=== PATIENT | male | born 1975 | race Caucasian/White ===

== ENCOUNTER 2020-11-18 12:14 | Emergency (ER) | payer OTHER, SELFPAY ==
--- NOTE | ~2020-11-18 | XR_ITS ---
EXAMINATION: XR CHEST CLINICAL INFORMATION: Back pain COMPARISON: None TECHNIQUE: 2 views of the chest were obtained. FINDINGS: The cardiac and mediastinal contours are normal. There is question of 2 cavitary right lung nodules measuring 1 cm. There is subsegmental atelectasis at the lung bases. There is blunting of the left lateral costophrenic angle probably related to subsegmental levels) and posterior small left effusion. There is no right pleural effusion. Bony structures are unremarkable. XR/XR chest 2V IMPRESSION: Question 2 cavitary right pulmonary nodules. Subsegmental atelectasis at the lung bases.
[2020-11-18 13:26] VITALS: BP 114/63; PULSE 100; RESP 19; TEMP 36.6; O2SAT 99; BMI 18.8
--- NOTE | 2020-11-18 17:39 | ED_ITS ---
HPI - General Adult General Chief complaint: General Medical Stated complaint: SHOULDER/KNEE PAIN FROM SLEEPING ON STREETS Time Seen by Provider: 11/18/20 17:39 Source: patient Mode of arrival: ambulatory Limitations: no limitations History of Present Illness HPI narrative: 45-year-old male who came in for evaluation of generalized body ache. Patient lost his mother 1 month ago and patient has been in the street homeless for the past month sleeping on the floor, having uncomfortable life, patient came in complaining of generalized body ache that he thinks secondary to been sleeping on the floor for 1 month. Patient otherwise declined any trauma or fall. patient mostly complaining of right shoulder pain in bilateral knees Patient is able to ambulate in the emergency department Related Data Previous Rx's Medication Instructions Recorded ibuprofen 600 mg PO Q8H PRN #20 tab 11/18/20 Allergies Allergy/AdvReac Type Severity Reaction Status Date / Time No Known Allergies Allergy Verified 11/18/20 13:31 Review of Systems Review of Systems: all other systems are reviewed and are negative Constitutional: Reports as per HPI and Reports no additional constitutional complaints Eyes: Reports as per HPI and Reports no additional eye complaints Reports system reviewed and no additional complaints, except as documented Cardiovascular: Reports as per HPI and Reports no additional cardiovascular complaints Respiratory: Reports as per HPI and Reports no additional respiratory complaints Gastrointestinal: Reports as per HPI and Reports no additional gastrointestinal complaints Genitourinary: Reports no additional female genitourinary complaints Musculoskeletal: Reports no additional musculoskeletal complaints Skin/Breast: Reports system reviewed and no additional complaints, except as docu Psychiatric: Reports no additional psychiatric complaints Endocrine: Reports no additional endocrine complaints Hematologic/Lymphatic: Reports no additional hematologic/lymphatic complaints Allergic/Immunologic: Reports no additional allergic/immunologic complaints Reports system reviewed and no additional complaints, except as documented and Reports Abnormal speech present Physical Exam Vital Signs: Vital Signs: Last Vital Signs Temp 98 F 11/18/20 13:26 Pulse 100 11/18/20 13:26 Resp 19 11/18/20 13:26 BP 114/63 11/18/20 13:26 Pulse Ox 99 11/18/20 13:26 Body Mass Index 18.8 vital signs have been reviewed as appeared to be correct. Blood pressure normal. Heart rate normal. Respiration rate normal. Temperature normal. Oxygen saturation normal. Appearance: Alert. Oriented X3. No acute distress. Head: Normal external exam. Normocephalic. Atraumatic. No Romano signs noted. No raccoon eyes noted Eyes: PERRLA. EOMI. Conjunctiva and sclera normal. Eyelids normal. ENT: TM's Normal. Pharynx normal. Uvula midline. Moist mucous membranes. No trismus noted. No drooling noted. No muffled voice noted. Neck: Normal inspection. Neck supple. FROM. No adenopathy. Thyroid Normal. No meningeal signs. No neck mass noted. CVS: Normal heart rate and rhythm. Heart sound normal. No murmurs noted. Pulses normal throughout. Respiratory: No respiratory distress. Painless inspiration. Breath sounds normal. No wheezes/rales/rhonchi noted. Chest nontender. No accessory muscle usage noted or decreased air movement noted. Abdomen: Soft and nontender. Bowel sounds normal in all 4 quadrants. No distention noted. No organomegaly noted. No visible injury noted. Back: No CVA tenderness. Full range of motion noted. Skin: Skin warm and dry. Normal skin color. Normal skin turgor. No rashes/lesions/lacerations noted. Extremities: right shoulder tenderness, full range of motion, no deformity, patent neurovascular exam. Bilateral knee tenderness, no deformity Neuro: Oriented X 3. No motor deficit. No sensory deficit. Reflexes normal. Course Course Course Narrative: 45-year-old male has been homeless for the past month in due to uncomfortable lifestyle patient came in with generalized body ache and joints pain. Patient's symptoms thought to be secondary to the unfortunate life situation, will offer NSAIDs, patient was instructed to go [facility]. Discharge Plan Discharge Clinical Impression: Arthralgia Qualifiers: Joint pain location: knee Laterality: bilateral Qualified Code(s): M25.561 - Pain in right knee Patient Disposition: Home, Self-Care Instructions: Arthralgia (ED) Prescriptions: New ibuprofen 600 mg tablet 600 mg PO Q8H PRN (Reason: pain) Qty: 20 RF: 0
[2020-11-18] MEDS: Ibuprofen 600 MG TABLET PO (18:08)
--- NOTE | 2020-11-18 18:08 | MHC.RECOVSUP ---
? Reason for consult Recovery Support o Current location: 22 o Identified substance use concern: Heroin <del>-</del> <del>Overdose</del> <del>-</del> <del>Withdrawal</del> - Seeking ATS (detox) - Support ? Intervention: o ATS bed search started 6pm/completed 6:15pm o Community resources provided o Harm reduction discussion ? Plan: o <del>Referral</del> <del>to</del> <del>[facility]</del> <del>o</del> <del>Bed</del> <del>search</del> <del>in</del> <del>progress</del> <del>to</del> <del>o</del> <del>Follow</del> <del>up</del> <del>tomorrow</del> <del>o</del> <del>Patient</del> <del>awaiting</del> <del>crisis</del> <del>evaluation</del> o Patient to follow up with [facility] after discharge ? Additional information: Patient was advised to go to [facility] In the morning to get the support he needs to get to a detox.. At the moment there is no detox bed
== END 2020-11-18 18:18 | disposition home or self-care (01) ==
LOC: HO.ED 18:12
PROVIDERS: Emergency Provider Emergency Medicine; PCP Internal Medicine
DX: M79.10 Myalgia, unspecified site (principal); M25.561 Pain in right knee; Z59.0 Homelessness; Z72.89 Other problems related to lifestyle; Z63.4 Disappearance and death of family member
CPT/HCPCS: 71046; 99283

== ENCOUNTER 2020-11-21 18:25 | Inpatient (IN) | payer OTHER, SELFPAY ==
--- NOTE | ~2020-11-21 | US_ITS ---
EXAMINATION: US ABDOMEN LIMITED CLINICAL INFORMATION: Elevated bilirubin. COMPARISON: None TECHNIQUE: Real-time imaging of the right upper quadrant abdominal viscera. FINDINGS: PANCREAS: Normal. LIVER: There is a small 6 mm hyperechoic lesion high in the dome of the right lobe of the liver. This may represent a hemangioma. The liver contour is normal. Parenchymal echogenicity is normal. No other focal hepatic lesion. There is no intrahepatic biliary duct dilatation seen. GALLBLADDER: Normal. The gallbladder is physiologically distended without evidence of stones, sludge, polyps, or pericholecystic fluid. COMMON BILE DUCT: Normal in caliber measuring 0.3 cm in diameter. RIGHT KIDNEY: There is a 1.2 x 1.6 x 1.8 cm cyst in the midpole. No hydronephrosis or renal calculi. The kidney measures 12.0 cm in maximum dimension. FREE FLUID: None. There is a small right pleural effusion. US/US abdomen limited IMPRESSION: 5 mm hyperechoic lesion high in the dome of the right lobe of the liver. This may represent a hemangioma. Small right pleural effusion. Small right renal cyst.
--- NOTE | ~2020-11-21 | MR_ITS ---
EXAMINATION: MR BRAIN WITHOUT CONTRAST CLINICAL INFORMATION: Confusion. COMPARISON: None available. TECHNIQUE: Multiplanar, multisequence imaging of the brain was performed without intravenous contrast. FINDINGS: There is no acute infarction, mass, hemorrhage, or extra-axial collection. The ventricles, sulci, and basilar cisterns are normal in size and configuration. The brain parenchymal signal appears normal. The flow voids of the major intracranial arteries appear intact. The bones and extracranial soft tissues are unremarkable. MR/MR head/brain wo con IMPRESSION: No acute infarct, mass lesion, intracranial hemorrhage, or evidence of hydrocephalus.
--- NOTE | ~2020-11-21 | MR_ITS ---
EXAMINATION: MR LUMBAR SPINE WITHOUT AND WITH CONTRAST CLINICAL INFORMATION: Evaluate for abscess. COMPARISON: No relevant prior imaging. TECHNIQUE: Multiplanar MR imaging of the lumbar spine was performed without and with contrast. A total of 6 mL Gadavist was utilized for this examination. FINDINGS: There is transitional spinal anatomy at the lumbosacral junction with partial lumbarization of the S1 vertebral segment. A single hypoplastic right-sided rib at L1 is also noted. Alignment is normal. Vertebral heights are preserved. There is diffuse reduction of bone marrow signal intensity on T1 sequences. There is disc desiccation at L4-L5 and L5-S1. The tip of the conus medullaris is located at L1-L2. No mass effect on the conus. Visualized distal cord signal intensity is normal. At L1-L2, L2-L3, and L3-L4 the annular contours are normal. No canal or neuroforaminal compromise at these 3 levels. At L4-L5 there is a central annular fissure associated with a bulging disc. No canal stenosis. Subarticular zone narrowing causes abutment of both traversing L5 nerve roots, slightly greater on the left. No foraminal nerve root compression. At L5-S1 there is a small left central annular fissure associated with a bulging disc. Bilateral facet degenerative change. No canal stenosis. Subarticular zone narrowing causes abutment of both traversing S1 nerve roots. No foraminal nerve root compression. Postcontrast images reveal no abnormal enhancement. Limited visualization of the retroperitoneal anatomy reveals no abnormal finding. Psoas and paraspinal muscle groups are symmetric. 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 There is diffuse reduction of bone marrow signal intensity on T1 sequences. This nonspecific finding can be seen in setting of red marrow reconversion or anemia. Other infiltrative bone marrow processes including leukemia are not excluded. There are bulging discs at L4-L5 and L5-S1. No canal or neuroforaminal stenosis within the lumbar spine. Subarticular zone narrowing at this level causes abutment of the left traversing L5 nerve root and both traversing S1 nerve roots. No evidence of abscess.
--- NOTE | ~2020-11-21 | CT_ITS ---
EXAMINATION: CT ANGIOGRAM OF THE CHEST WITH AND WITHOUT CONTRAST (CT PULMONARY ANGIOGRAM FOR PE) CLINICAL INFORMATION: Septic emboli. COMPARISON: Radiograph 11/21/2020 TECHNIQUE: Prior to contrast administration, noncontrast localization images were obtained. Subsequently, multidetector volumetric imaging was performed from the thoracic inlet to below the diaphragms following the administration of 65 mL Omnipaque 350 intravenous contrast. No contrast reaction reported Sagittal, coronal, and MIP oblique sagittal reformatted images were obtained on the CT workstation, uploaded to PACS, and reviewed. This CT examination was performed using dose optimization techniques as appropriate, variously including the following: *Automated exposure control *Adjustment of mA and/or kV according to patient size (this includes techniques or standardized protocols for targeted exams where dose is matched to indication/reason for exam; i.e. extremities or head) *Use of iterative reconstruction technique Total exam dose-length product 374 mGy-cm FINDINGS: QUALITY OF STUDY/CONTRAST BOLUS: Satisfactory. PULMONARY ARTERIES: No central or segmental pulmonary emboli. THORACIC AORTA: No aneurysm or dissection. LUNG: The central airways are patent. Small bilateral pleural effusions. Bilateral lower lobe consolidation. Multiple cavitating nodules are seen throughout both lungs. For instance, there is a cavitating nodule in the right middle lobe measuring 2.1 cm on series 11 image 280. No pneumothorax. MEDIASTINUM: Normal heart size. No pericardial effusion. There are prominent mediastinal lymph nodes and right hilar lymph nodes present.. No evidence of septal bowing or right heart strain. CHEST WALL/AXILLA: No axillary or internal mammary lymphadenopathy. OSSEOUS STRUCTURES: No acute or suspicious osseous abnormality. UPPER ABDOMEN: Unremarkable. No reflux of contrast into the hepatic veins to suggest elevated right heart pressures. CT/CT angio chest PE protocol IMPRESSION: 1. No pulmonary embolism. 2. Cavitating nodules are seen throughout both lungs, consistent with septic emboli. Small pleural effusions with bibasilar consolidation. VTE: negative
--- NOTE | ~2020-11-21 | XR_ITS ---
EXAMINATION: XR CHEST CLINICAL INFORMATION: Tachypnea COMPARISON: Previous chest x-rays most recent 11/21/2020 and chest CTA 11/22/2020 TECHNIQUE: Frontal view of the chest was obtained. FINDINGS: The cardiac and mediastinal contours are stable. There are multiple nodular opacities seen throughout the lungs, some of which appear cavitary. This appears increased from previous exams. There is denser larger area of consolidation in the right lateral midlung and left lower lobe suggestive of pneumonia that appears increased from previous exams. There is an increasing left pleural effusion. There is no right pleural effusion. There is no pneumothorax. XR/XR chest 1V IMPRESSION: Increasing cavitary nodules and larger denser areas of airspace disease in the right lateral midlung and left lower lobe and increasing left pleural effusion compared to previous exams.
--- NOTE | ~2020-11-21 | XR_ITS ---
EXAMINATION: XR CHEST CLINICAL INFORMATION: Question of pneumonia. COMPARISON: 11/18/2020 chest radiographs. TECHNIQUE: Frontal view of the chest was obtained. FINDINGS: There has been interval increase in nodular opacities distributed diffusely bilaterally. Mild left basilar opacification is seen with blunting of the left costophrenic angle. The heart and mediastinal structures are unremarkable. XR/XR chest 1V IMPRESSION: Interval increase in bilateral nodular opacities with small left pleural effusion. These findings are nonspecific, but given the short interval, septic emboli cannot be excluded. A CT scan of the chest should be considered.
--- NOTE | 2020-11-21 18:31 | ED_ITS ---
HPI - General Adult General Chief complaint: General Medical Stated complaint: bilateral leg swelling Time Seen by Provider: 11/21/20 18:31 Source: patient and EMS Mode of arrival: EMS Limitations: no limitations History of Present Illness HPI narrative: Patient homeless or IVDA user brought by ambulance for not fee ling good 4 weeks generalized body aches feel short of breath coughing is 21 dose of it on a day IVDA no history of HIV or MRSA infection low-grade fever. On arrival patient vitals were blood pressure 94/56 pulse rate 116 refuted 20 saturating 98% at room air rectal temperature 99.5 degrees patient does feel weak no significant shortness of breath denies any back pain known paresthesia in the legs Related Data Home Medications Medication Instructions Recorded Confirmed No Known Home Meds 11/21/20 11/21/20 Allergies Allergy/AdvReac Type Severity Reaction Status Date / Time No Known Allergies Allergy Verified 11/18/20 13:31 Review of Systems 2 Review of Systems: Constitutional : + Weight loss, No Fever, No Chills ENT/Mouth : No sore throat, No Rhinorrhea Eyes: No Eye Pain, No Swelling Cardiovascular : No Chest Pain, no palpitations Respiratory : No Cough, No Sputum, no shortness of breath Gastrointestinal : no Nausea, No Vomiting, No Diarrhea, No abdominal Pain, no black stools Genitourinary : No Dysuria, No Urinary Frequency Musculoskeletal : No joint pain, + Myalgias, No Joint Swelling Skin : No Skin Lesions, No rash Neuro :++Weakness, No Numbness, No Dizziness, No Headache Psych : No Anxiety/Panic, No Depression Heme/Lymph: No Bruising, No Lymphadenopathy Endocrine : No Polyuria, No Polydipsia All other systems reviewed and are negative [facility] Past Medical History Medical History Substance abuse Social History Social History Household Members: None Housing: Homeless Do you presently have visiting nurse or other home services: No Patient Tobacco Use Status: Former Tobacco user Tobacco use type: Cigarette Smoked in Last 30 Days: No e-Cigarette/Vaping Use: Former Use Patient Interested in Nicotine Replacement: Yes Patient Given Instructions on How to Stop Smoking: Yes Date Education Initiated: 11/22/20 Use of substances other than those prescribed or required for medical reasons: Yes Substance Use Type: Crack/Cocaine and Heroin Substance Use Frequency: Daily Last Used Substance: Days (ago) Last Used Substance Other:: 11/21/20 Currently Displaying Signs/Symptoms of Drug Intoxication Withdrawal: No Have you been hit, kicked, punched, or otherwise hurt by someone within the past year? If so, by whom?: No Do you feel safe in your current relationship?: No Current Relationship Is there a partner from a previous relationship who is making you feel unsafe now?: No Are you made to feel afraid or neglected: No Advance Directives: No Advance Directives on File: No Do you have thoughts of harming others: None Do you have a plan to hurt others: No Plan Recently lost weight without trying: Yes How much weight loss: Unsure Eating poorly because of decreased appetite: No Nutrition screen score: 4 Nutrition Risks: No Nutritional Risk Poor oral hygiene: No (no top teeth) Physical Exam Vital Signs: Vital Signs: Last Vital Signs Temp 98.6 F 11/22/20 00:51 Pulse 115 H 11/22/20 01:09 Resp 20 11/22/20 00:51 BP 105/60 11/22/20 01:09 Pulse Ox 90 L 11/22/20 01:57 Body Mass Index 20.7 Appearance: Alert. Oriented X3. In mild distress thin emaciated patient looks sick uncapped Eyes: PERRLA, No Nystagmus ENT: Pharynx normal. Oral Mucosa moist Neck: Normal inspection. Neck supple. CVS: Normal heart rate and rhythm. Pulses normal. No murmur Respiratory: No respiratory distress. Equal air entry bilateral, no wheezing/rhonchi bilateral Diffuse crackles Abdomen: Soft and nontender. Bowel sounds are present, no mass palpable, no CVA tenderness Skin: Skin warm and dry. Normal skin color. Normal skin turgor. No skin abscesses no focal spinal tenderness Extremities: No lower extremity edema. No calf tenderness, IVDA track muhammad++ Neuro: Oriented X 3. No motor deficit. No sensory deficit.No cerebellar signs , cranial nerves II-XII intact Medical Decision Making MDM Narrative Medical decision making narrative: Patient IVDA user with leukocytosis tachyca rdia CT scan showing multiple septic sepsis bilateral meeting criteria for sepsis received IV fluid more than 30 cc/kilogram IV antibiotic vancomycin and Zosyn. Will admit patient bacteremia with septic emboli Lab Data Lab results reviewed: Yes I reviewed the patient's lab results. Result diagrams: 11/21/20 20:29 11/21/20 20:29 Labs: Lab Results 11/21/20 11/21/20 11/21/20 Range/Units 20:29 20:29 20:29 WBC 30.5 H* (4.8-10.8) X10*3/uL RBC 3.47 L (4.60-5.80) X10*6/uL Hgb 10.3 L (14.0-18.0) g/dl Hct 27.8 L (42-52) % MCV 80.1 (80-98) fL MCH 29.7 (27.0-33.0) pg MCHC 37.1 H (31.0-36.0) g/dl RDW 12.9 (11.0-16.0) % Plt Count 140 L (160-400) X10*3/uL MPV 11.1 (9.4-12.4) fL Immature Gran % (Auto) Cancelled Neut % (Auto) Cancelled Lymph % (Auto) Cancelled [place] % (Auto) Cancelled Eos % (Auto) Cancelled Baso % (Auto) Cancelled Lymph # (Auto) Cancelled [place] # (Auto) Cancelled Eos # (Auto) Cancelled Baso # (Auto) Cancelled Abs Immat Gran (auto) Cancelled Absolute Neuts (auto) Cancelled Absolute Nucleated RBC 0.000 (0.0-0.012) X10*3/uL Nucleated RBC % (auto) 0.0 (0.0-0.2) /100WBC Neutrophils % (Manual) 65 (45-73) % Band Neutrophils % 27 H (3-5) % Lymphocytes % (Manual) 3 L (20-40) % Monocytes % (Manual) 2 (2-11) % Eosinophils % (Manual) 1 (0-4) % Metamyelocytes % 2 % Abs Neuts (Manual) 28.1 H (2.2-7.9) X10*3/uL Lymphocytes # (Manual) 0.9 (0.6-4.8) X10*3/uL Monocytes # (Manual) 0.6 (0.0-1.2) X10*3/uL Eosinophils # (Manual) 0.3 (0.0-0.8) X10*3/UL Metamyelocytes # 0.6 X10*3/uL Platelet Estimate NORMAL (NORMAL) Plt Morphology Comment NORMAL RBC Morphology NORMAL Sodium 128 L (135-145) mmol/L Potassium 3.5 (3.3-5.1) mmol/L Chloride 92 L (96-108) mmol/L Carbon Dioxide 25 (22-29) mmol/L Anion Gap 15 (12-20) BUN 40 H (9-16) mg/dL Creatinine 0.98 (0.5-1.4) mg/dL Estim Creat Clear Calc 80.7 Estimated GFR > 60 Random Glucose 131 H (60-115) mg/dL Lactic Acid (0.5-2.0) mmol/L Calcium 7.6 L (8.4-10.2) mg/dL Total Bilirubin 1.9 H (0.0-1.0) mg/dL Direct Bilirubin 1.5 H (0.0-0.5) mg/dL AST 27 (5-37) U/L ALT 23 (0-40) U/L Alkaline Phosphatase 116 (39-117) U/L C-Reactive Protein 23.14 H (< or = 0.50) mg/dL Total Protein 5.3 L (6.5-8.0) g/dL Albumin 2.2 L (3.5-5.0) g/dL Urine Color Urine Appearance Urine pH (5.0-8.0) Ur Specific [place] (1.005-1.025) Urine Protein (NEG-TRACE) MG/DL Urine Glucose (UA) (NEG) MG/DL Urine Ketones (NEG) MG/DL Urine Blood (NEG) Urine Nitrite (NEG) Ur Leukocyte Esterase (NEG) Urine RBC (0) /HPF Urine WBC (0-4) /HPF Ur Squamous Epith Cells /LPF Urine Bacteria /LPF Hyaline Casts /LPF Urine Mucus /LPF COVID-19 (LISA) (Negative) COVID-19 Clin Com 11/21/20 11/21/20 11/21/20 Range/Units 21:03 21:14 23:53 WBC (4.8-10.8) X10*3/uL RBC (4.60-5.80) X10*6/uL Hgb (14.0-18.0) g/dl Hct (42-52) % MCV (80-98) fL MCH (27.0-33.0) pg MCHC (31.0-36.0) g/dl RDW (11.0-16.0) % Plt Count (160-400) X10*3/uL MPV (9.4-12.4) fL Immature Gran % (Auto) Neut % (Auto) Lymph % (Auto) [place] % (Auto) Eos % (Auto) Baso % (Auto) Lymph # (Auto) [place] # (Auto) Eos # (Auto) Baso # (Auto) Abs Immat Gran (auto) Absolute Neuts (auto) Absolute Nucleated RBC (0.0-0.012) X10*3/uL Nucleated RBC % (auto) (0.0-0.2) /100WBC Neutrophils % (Manual) (45-73) % Band Neutrophils % (3-5) % Lymphocytes % (Manual) (20-40) % Monocytes % (Manual) (2-11) % Eosinophils % (Manual) (0-4) % Metamyelocytes % % Abs Neuts (Manual) (2.2-7.9) X10*3/uL Lymphocytes # (Manual) (0.6-4.8) X10*3/uL Monocytes # (Manual) (0.0-1.2) X10*3/uL Eosinophils # (Manual) (0.0-0.8) X10*3/UL Metamyelocytes # X10*3/uL Platelet Estimate (NORMAL) Plt Morphology Comment RBC Morphology Sodium (135-145) mmol/L Potassium (3.3-5.1) mmol/L Chloride (96-108) mmol/L Carbon Dioxide (22-29) mmol/L Anion Gap (12-20) BUN (9-16) mg/dL Creatinine (0.5-1.4) mg/dL Estim Creat Clear Calc Estimated GFR Random Glucose (60-115) mg/dL Lactic Acid 1.5 (0.5-2.0) mmol/L Calcium (8.4-10.2) mg/dL Total Bilirubin (0.0-1.0) mg/dL Direct Bilirubin (0.0-0.5) mg/dL AST (5-37) U/L ALT (0-40) U/L Alkaline Phosphatase (39-117) U/L C-Reactive Protein (< or = 0.50) mg/dL Total Protein (6.5-8.0) g/dL Albumin (3.5-5.0) g/dL Urine Color DARK YELLOW Urine Appearance CLEAR Urine pH 6.0 (5.0-8.0) Ur Specific [place] 1.010 (1.005-1.025) Urine Protein TRACE (NEG-TRACE) MG/DL Urine Glucose (UA) NEG (NEG) MG/DL Urine Ketones NEG (NEG) MG/DL Urine Blood 1+ H (NEG) Urine Nitrite NEG (NEG) Ur Leukocyte Esterase 1+ H (NEG) Urine RBC 1-4 (0) /HPF Urine WBC 5-9 H (0-4) /HPF Ur Squamous Epith Cells 1+ /LPF Urine Bacteria TRACE /LPF Hyaline Casts 0-2 /LPF Urine Mucus 1+ /LPF COVID-19 (LISA) Negative (Negative) COVID-19 Clin Com See Note Imaging Data CT scan - chest: Attestation: I personally reviewed and interpreted this imaging study as follows: Radiologist's impression: Signed Patient: Andrez Chiang#: [id number]: 1975Acct:[id number]/Sex: 45 / MADM Date: 11/22/20Loc: [id number] Dr: Angeli Crawford MD Ordering Physician: ANGELI CRAWFORD MD Date of Service: 11/22/20 Procedure(s): CT angio chest PE protocol Accession Number(s): [id number] cc: ANGELI CRAWFORD MD~ EXAMINATION: CT ANGIOGRAM OF THE CHEST WITH AND WITHOUT CONTRAST (CT PULMONARY ANGIOGRAM FOR PE) CLINICAL INFORMATION: Septic emboli. COMPARISON: Radiograph 11/21/2020 TECHNIQUE: Prior to contrast administration, noncontrast localization images were obtained. Subsequently, multidetector volumetric imaging was performed from the thoracic inlet to below the diaphragms following the administration of 65 mL Omnipaque 350 intravenous contrast. No contrast reaction reported Sagittal, coronal, and MIP oblique sagittal reformatted images were obtained on the CT workstation, uploaded to PACS, and reviewed. This CT examination was performed using dose optimization techniques as appropriate, variously including the following: *Automated exposure control *Adjustment of mA and/or kV according to patient size (this includes techniques or standardized protocols for targeted exams where dose is matched to indication/reason for exam; i.e. extremities or head) *Use of iterative reconstruction technique Total exam dose-length product 374 mGy-cm FINDINGS: QUALITY OF STUDY/CONTRAST BOLUS: Satisfactory. PULMONARY ARTERIES: No central or segmental pulmonary emboli. THORACIC AORTA: No aneurysm or dissection. LUNG: The central airways are patent. Small bilateral pleural effusions. Bilateral lower lobe consolidation. Multiple cavitating nodules are seen throughout both lungs. For instance, there is a cavitating nodule in the right middle lobe measuring 2.1 cm on series 11 image 280. No pneumothorax. MEDIASTINUM: Normal heart size. No pericardial effusion. There are prominent mediastinal lymph nodes and right hilar lymph nodes present.. No evidence of septal bowing or right heart strain. CHEST WALL/AXILLA: No axillary or internal mammary lymphadenopathy. OSSEOUS STRUCTURES: No acute or suspicious osseous abnormality. UPPER ABDOMEN: Unremarkable. No reflux of contrast into the hepatic veins to suggest elevated right heart pressures. CT/CT angio chest PE protocol IMPRESSION: 1. No pulmonary embolism. 2. Cavitating nodules are seen throughout both lungs, consistent with septic emboli. Small pleural effusions with bibasilar consolidation. VTE: negative Dictated By:Nabil Barnett MDSigned By:<Electronically signed by Nabil Barnett MD in OV>11/22/20 0056 Discharge Plan Discharge Clinical Impression: Sepsis Patient Disposition: Admitted As Inpatient Interventions: Admission Worksheet (ED) Last Done: 11/22/20 00:27 Discharge Date/Time: 11/22/20 00:27
[2020-11-21 18:34] VITALS: BP 110/70; BP 94/56; PULSE 116; PULSE 75; RESP 20; TEMP 36.9; O2SAT 98; BMI 20.7
[2020-11-21 20:35] LABS: Hematocrit 27.8 % (42-52); Hemoglobin 10.3 g/dl (14.0-18.0); Mean Corpuscular HGB Conc 37.1 g/dl (31.0-36.0); Mean Corpuscular Hemoglobin 29.7 pg (27.0-33.0); Mean Corpuscular Volume 80.1 fL (80-98); Mean Platelet Volume 11.1 fL (9.4-12.4); Platelet Count 140 X10*3/uL (160-400); Red Blood Count 3.47 X10*6/uL (4.60-5.80); Red Cell Distribution Width 12.9 % (11.0-16.0)
[2020-11-21 20:43] LABS: White Blood Count 30.5 X10*3/uL (4.8-10.8)
[2020-11-21 20:57] LABS: Band Neutrophils Percent 27 % (3-5); Eosinophils Absolute Manual 0.3 X10*3/UL (0.0-0.8); Eosinophils Percent Manual 1 % (0-4); Lymphocytes Absolute Manual 0.9 X10*3/uL (0.6-4.8); Lymphocytes Percent Manual 3 % (20-40); Metamyelocytes Absolute 0.6 X10*3/uL; Metamyelocytes Percent 2 %; Monocytes Absolute Manual 0.6 X10*3/uL (0.0-1.2); Monocytes Percent Manual 2 % (2-11); Neutrophils Absolute Manual 28.1 X10*3/uL (2.2-7.9); Neutrophils Percent Manual 65 % (45-73); RBC Morphology NORMAL
[2020-11-21 20:58] LABS: Platelet Estimate NORMAL (NORMAL); Platelet Morphology Comment NORMAL
[2020-11-21 21:05] LABS: C Reactive Protein 23.14 mg/dL (< or = 0.50)
[2020-11-21 21:08] LABS: Alanine Aminotransferase 23 U/L (0-40); Albumin Level 2.2 g/dL (3.5-5.0); Alkaline Phosphatase 116 U/L (39-117); Anion Gap 15 (12-20); Aspartate Amino Transferase 27 U/L (5-37); Bilirubin Direct 1.5 mg/dL (0.0-0.5); Bilirubin Total 1.9 mg/dL (0.0-1.0); Blood Urea Nitrogen 40 mg/dL (9-16); Calcium 7.6 mg/dL (8.4-10.2); Carbon Dioxide 25 mmol/L (22-29); Chloride 92 mmol/L (96-108); Creatinine Clr Calc Pharmacy 80.7; Estimated Glomerular Filt Rate > 60; Glucose Random 131 mg/dL (60-115); Potassium 3.5 mmol/L (3.3-5.1); Sodium 128 mmol/L (135-145); Total Protein 5.3 g/dL (6.5-8.0)
[2020-11-21 21:20] VITALS: BP 100/64; PULSE 121; RESP 20; TEMP 36.6; O2SAT 97
[2020-11-21] MEDS: 0.9 % Sodium Chloride 1,800 ML 900 ML IV (21:32)
[2020-11-21] MEDS: Piperacillin Sodium/Tazobactam 3.375 GM in 0.9 % Sodium Chloride 50 ML IV (21:33)
[2020-11-21 21:43] LABS: COVID-19 Test Negative (Negative)
[2020-11-21] MEDS: vancomycin HCL 1,000 MG in 0.9 % Sodium Chloride 250 ML 270 MG IV (21:44)
[2020-11-21 21:56] LABS: Lactic Acid 1.5 mmol/L (0.5-2.0)
[2020-11-21 22:00] VITALS: TEMP 37.5
--- NOTE | 2020-11-21 22:01 | PC.NURSE ---
Pt undressed completly ems linen removed. pt has iv with fluids and antibx infusing. pt felt very warm hr elevated and rectal temp taken. 99.5 rectal
--- NOTE | 2020-11-21 22:10 | PHA.MEDREC ---
Pharmacy Consult ? Medication Reconciliation Pharmacy has completed the medication reconciliation.
[2020-11-22] VITALS (12 sets, daily range): BP systolic 91–109; BP diastolic 54–64; PULSE 107–122; RESP 16–20; TEMP 36.1–37.3; O2SAT 90–96; BMI 20.9
[2020-11-22 00:01] LABS: Glucose Urine UA NEG (NEG); Leukocyte Esterase Urine 1+ (NEG); Nitrite Urine NEG (NEG); UACC Culture Trigger YES; Urine Blood 1+ (NEG); Urine Ketones NEG (NEG); Urine Protein TRACE MG/DL (NEG-TRACE)
[2020-11-22 00:03] LABS: Appearance Urine CLEAR; Color Urine DARK YELLOW
[2020-11-22 00:10] LABS: Bacteria Urine TRACE /LPF; Hyaline Casts Urine 0-2 /LPF; Mucus Urine 1+ /LPF; Squamous Epithelial Cell Urine 1+ /LPF
[2020-11-22] MEDS: iohexoL 350 MG/ML 100 ML INFUS..BTL 65 ML IV (00:11)
--- NOTE | 2020-11-22 00:21 | P.HPHOSP_ITS ---
History of Present Illness Date of Service: 11/22/20 Chief Complaint: Generalized body aches 45-year-old male with No past medical history except for IV drug abuse/heroin abuse; presented to the hospital with a chief complaint of generalized body aches for the past couple days. Reports dry cough. Denies any numbness tingling. Denies any urinary retention or stool incontinence. Denies any focal weakness. Reports he has generalized weakness/fatigue. Mentions that he uses IV heroin daily. Denies any alcohol use. Denies any urinary complaints. Denies any nausea vomiting diarrhea. Review of all other systems is negative except mentioned above ER course: Per ER team patient noted to have significantly elevated white count, no obvious source of infection; had low-grade temperatures; started on broad-spectrum antibiotics. Admitted for further management. FOR[facility]LY [facility] Medical History Substance abuse Social History Household Members: None Housing: Homeless Do you presently have visiting nurse or other home services: No Patient Tobacco Use Status: Former Tobacco user Tobacco use type: Cigarette e-Cigarette/Vaping Use: Former Use Substance Use Type: Crack/Cocaine and Heroin service: No Current occupational status: unemployed Meds Allergies Allergy/AdvReac Type Severity Reaction Status Date / Time No Known Allergies Allergy Verified 11/18/20 13:31 Active Medications: Current Medications Generic Name Dose Route Start Last Admin Trade Name Freq PRN Reason Stop Dose Admin Acetaminophen 650 mg 11/22/20 00:08 Acetaminophen 325 Mg Tablet PO Q6H PRN Pain, Mild (Pain Scale 1-3) Clonidine HCl 0.1 mg 11/22/20 00:10 Clonidine Hcl 0.1 Mg Tablet PO BID PRN anxiety/restlessness Protocol Vancomycin HCl 750 mg/ Sodium 265 mls @ 265 mls/hr 11/22/20 10:00 Chloride IV Q12H SOHEILA Sodium Chloride 1,000 mls @ 75 mls/hr 11/22/20 00:15 Ns IVCONT .[id number] SOHEILA Vancomycin HCl 1,000 mg/ 270 mls @ 270 mls/hr 11/22/20 00:15 Sodium Chloride IV Q12H SOHEILA Piperacillin Sod/Tazobactam 50 mls @ 100 mls/hr 11/22/20 00:15 Sod 3.375 gm/ Sodium Chloride IV Q6H SOHEILA Magnesium Hydroxide 30 ml 11/22/20 00:08 Milk Of Magnesia 30 Ml Oral.Susp PO DAILY PRN Constipation Melatonin 6 mg 11/22/20 00:08 Melatonin 3 Mg Tablet PO BEDTIME PRN Insomnia Pharmacy Consult 1 each 11/21/20 20:51 Consult Rx Vancomycin Dosing MISCELLANE DAILY PRN Consult order Pharmacy Consult 1 each 11/22/20 00:08 Consult Rx Vancomycin Dosing MISCELLANE DAILY PRN Consult order Sodium Chloride 3 ml 11/22/20 08:00 0.9 % Sodium Chloride Flush 3 Ml Syringe IVFLUSH QSHIFT [facility] Physical Exam Vital Signs and Narrative: Vital Signs: Last Vital Signs Temp 99.5 F 11/21/20 22:00 Pulse 121 H 11/21/20 21:20 Resp 20 11/21/20 21:20 BP 100/64 11/21/20 21:20 Pulse Ox 97 11/21/20 21:20 Body Mass Index 20.7 Gen: Appears be in no acute distress HEENT: NCAT, try mucosa. Pulmonary: Mildly coarse breath sounds CVS: Normal S1-S2 Abdomen: BS+, Soft, Nontender Extremities: Warm well perfused; no focal spine tenderness noted Neuro: Alert and awake.; nonfocal exam. Results Labs CBC and Chem 7: 11/28/20 14:58 11/28/20 05:22 Labs: Laboratory Results - last 24 hr 11/21/20 11/21/20 11/21/20 20:29 20:29 20:29 MCV 80.1 MCH 29.7 MCHC 37.1 H RDW 12.9 Plt Count 140 L MPV 11.1 Immature Gran % (Auto) Cancelled Neut % (Auto) Cancelled Lymph % (Auto) Cancelled [place] % (Auto) Cancelled Eos % (Auto) Cancelled Baso % (Auto) Cancelled Lymph # (Auto) Cancelled [place] # (Auto) Cancelled Eos # (Auto) Cancelled Baso # (Auto) Cancelled Abs Immat Gran (auto) Cancelled Absolute Neuts (auto) Cancelled Absolute Nucleated RBC 0.000 Nucleated RBC % (auto) 0.0 Neutrophils % (Manual) 65 Band Neutrophils % 27 H Lymphocytes % (Manual) 3 L Monocytes % (Manual) 2 Eosinophils % (Manual) 1 Metamyelocytes % 2 Abs Neuts (Manual) 28.1 H Lymphocytes # (Manual) 0.9 Monocytes # (Manual) 0.6 Eosinophils # (Manual) 0.3 Metamyelocytes # 0.6 Platelet Estimate NORMAL Plt Morphology Comment NORMAL RBC Morphology NORMAL Anion Gap 15 Estim Creat Clear Calc 80.7 Estimated GFR > 60 Random Glucose 131 H Lactic Acid Calcium 7.6 L Total Bilirubin 1.9 H Direct Bilirubin 1.5 H AST 27 ALT 23 Alkaline Phosphatase 116 C-Reactive Protein 23.14 H Total Protein 5.3 L Albumin 2.2 L Urine Color Urine Appearance Urine pH Ur Specific [place] Urine Protein Urine Glucose (UA) Urine Ketones Urine Blood Urine Nitrite Ur Leukocyte Esterase Urine RBC Urine WBC Ur Squamous Epith Cells Urine Bacteria Hyaline Casts Urine Mucus COVID-19 (LISA) COVID-19 Clin Com 11/21/20 11/21/20 11/21/20 21:03 21:14 23:53 MCV MCH MCHC RDW Plt Count MPV Immature Gran % (Auto) Neut % (Auto) Lymph % (Auto) [place] % (Auto) Eos % (Auto) Baso % (Auto) Lymph # (Auto) [place] # (Auto) Eos # (Auto) Baso # (Auto) Abs Immat Gran (auto) Absolute Neuts (auto) Absolute Nucleated RBC Nucleated RBC % (auto) Neutrophils % (Manual) Band Neutrophils % Lymphocytes % (Manual) Monocytes % (Manual) Eosinophils % (Manual) Metamyelocytes % Abs Neuts (Manual) Lymphocytes # (Manual) Monocytes # (Manual) Eosinophils # (Manual) Metamyelocytes # Platelet Estimate Plt Morphology Comment RBC Morphology Anion Gap Estim Creat Clear Calc Estimated GFR Random Glucose Lactic Acid 1.5 Calcium Total Bilirubin Direct Bilirubin AST ALT Alkaline Phosphatase C-Reactive Protein Total Protein Albumin Urine Color DARK YELLOW Urine Appearance CLEAR Urine pH 6.0 Ur Specific [place] 1.010 Urine Protein TRACE Urine Glucose (UA) NEG Urine Ketones NEG Urine Blood 1+ H Urine Nitrite NEG Ur Leukocyte Esterase 1+ H Urine RBC 1-4 Urine WBC 5-9 H Ur Squamous Epith Cells 1+ Urine Bacteria TRACE Hyaline Casts 0-2 Urine Mucus 1+ COVID-19 (LISA) Negative COVID-19 Clin Com See Note Imaging Radiologist's Impressions: Impressions Chest X-Ray 11/21/20 20:50 IMPRESSION: Interval increase in bilateral nodular opacities with small left pleural effusion. These findings are nonspecific, but given the short interval, septic emboli cannot be excluded. A CT scan of the chest should be considered. Assessment and Plan (1) Sepsis: Status: Acute 45-year-old male with a past medical history of IV drug abuse/IV heroin use presented to the hospital with chief complaint of generalized body aches/dry cough. Noted to have significantly elevated white count with bandemia and low- grade temperatures; admitted for further management. Sepsis: Patient urinalysis was slightly abnormal; chest x-ray showed-recommended CT chest CT chest pending ? Question septic pulmonary emboli Blood cultures have been sent Patient started on IV vancomycin and Zosyn. Echocardiogram ID consult for further recommendations IV heroin abuse: Will monitor on COWS protocol. Addiction Medicine consult. Clonidine p.r.n.. Zofran p.r.n.. Mild hyponatremia: Normal saline 75 cc/hour; repeat levels. DVT prophylaxis: SCD boots Code status: Full code Quality Stroke Does the patient have a stroke diagnosis?: No VTE Prior VTE?: No VTE Risk Level:: Medical - moderate - high VTE Device Contraindication: N/A - Device Ordered VTE Drug Contraindication: Treatment Not Indicated
[2020-11-22] MEDS: Acetaminophen 325 MG TABLET 650 MG PO ×3 (01:08→21:28)
[2020-11-22] MEDS: Melatonin 3 MG TABLET 6 MG PO ×2 (01:09→21:28)
[2020-11-22] MEDS: cloNIDine HCL 0.1 MG TABLET PO ×2 (01:09→13:58)
[2020-11-22] MEDS: 0.9 % Sodium Chloride 1,000 ML 75 ML IVCONT (01:21)
--- NOTE | 2020-11-22 01:58 | PC.NURSE ---
Addendum entered by Cheryl Oneal RN 11/22/20 03:00: Pt refusing to keep oxygen on, but satting at 95% on room air currently. Pt does desat to 88-89% periodically. Dr. Crawford aware. Addendum entered by Cheryl Oneal RN 11/22/20 02:46: Dr. Crawford ordered pt's oxygen to be 95%. Titrated oxygen up to 3L, satting 94-95%. Original Note: Pt transferred to unit on 4L NC, satting 100%. Pt refusing to keep O2 on because it was too much pressure. Able to titrate down to 1.5L NC, satting between 89-92%. Will continue to monitor.
[2020-11-22] MEDS: Nicotine 21 MG PATCH.TD24 TRANSDERMA ×2 (02:11→09:20)
[2020-11-22] MEDS: Piperacillin Sodium/Tazobactam 3.375 GM in 0.9 % Sodium Chloride 50 ML IV ×4 (04:03→21:29)
[2020-11-22 07:20] LABS: Anion Gap 14 (12-20); Blood Urea Nitrogen 32 mg/dL (9-16); Calcium 7.1 mg/dL (8.4-10.2); Carbon Dioxide 22 mmol/L (22-29); Chloride 99 mmol/L (96-108); Estimated Glomerular Filt Rate > 60; Glucose Random 107 mg/dL (60-115); Potassium 3.1 mmol/L (3.3-5.1); Sodium 132 mmol/L (135-145)
[2020-11-22 07:36] LABS: Hemoglobin 9.6 g/dl (14.0-18.0); PLT CLUMP 1
[2020-11-22 07:39] LABS: Hematocrit 26.1 % (42-52); Mean Corpuscular HGB Conc 36.8 g/dl (31.0-36.0); Mean Corpuscular Hemoglobin 29.5 pg (27.0-33.0); Mean Corpuscular Volume 80.3 fL (80-98); Mean Platelet Volume 11.5 fL (9.4-12.4); NRBC Pct Auto 0.1 /100WBC (0.0-0.2); Platelet Count 133 X10*3/uL (160-400); Red Blood Count 3.25 X10*6/uL (4.60-5.80); Red Cell Distribution Width 13.2 % (11.0-16.0)
[2020-11-22 07:48] LABS: WBC ABN SCTR FOR CBC 1; White Blood Count 28.5 X10*3/uL (4.8-10.8)
[2020-11-22 08:19] LABS: Band Neutrophils Percent 15 % (3-5); Eosinophils Absolute Manual 0.3 X10*3/UL (0.0-0.8); Eosinophils Percent Manual 1 % (0-4); Lymphocytes Absolute Manual 1.1 X10*3/uL (0.6-4.8); Lymphocytes Percent Manual 4 % (20-40); Monocytes Absolute Manual 0.9 X10*3/uL (0.0-1.2); Monocytes Percent Manual 3 % (2-11); Neutrophils Absolute Manual 26.2 X10*3/uL (2.2-7.9); Neutrophils Percent Manual 77 % (45-73)
[2020-11-22 08:23] LABS: RBC Morphology NOTED
[2020-11-22 08:24] LABS: Burr Cells 2+ (3-5) /OIF; Hypochromasia 1+ (5-14) /OIF; Target Cells 1+ (5-14) /OIF
[2020-11-22 08:25] LABS: Platelet Estimate SLIGHTLY DECREASED (NORMAL); Platelet Morphology Comment NORMAL
[2020-11-22] MEDS: Potassium Chloride ER 20 MEQ TAB.ER.PRT 40 MEQ PO (09:20)
[2020-11-22] MEDS: vancomycin HCL 1,000 MG in 0.9 % Sodium Chloride 250 ML 270 MG IV ×2 (10:21→23:30)
[2020-11-22] MEDS: oxyCODONE HCl Immed Release 15 MG TABLET PO ×3 (10:26→23:42)
--- NOTE | 2020-11-22 10:49 | MHC.CM.PN ---
Attempted to contact patient to notify him that CM will be coming to see him for interview and find out if animal care technician needed. Phone straight to voice mail. Will attempt visit.
--- NOTE | 2020-11-22 10:54 | MHC.CM.PN ---
Attempted in-person interview; patient woke up to confirm vessel builder needed and went right back to sleep. Will attempt when patient less lethargic and with the assistance of vessel builder. Telesitter in room.
--- NOTE | 2020-11-22 13:37 | P.PNIM_ITS ---
Subjective Subjective Date of Service: 11/22/20 <Meeta Patel NP - Last Filed: 11/22/20 13:45> 11/23/20 <Leila Atkinson MD - Last Filed: 11/23/20 16:13> Interval History: follow-up 4 weeks of generalized body aches, shortness of breath and coughing history of IV drug abuse still with some shortness of breath and generalized pain withdrawals are at this point under control <Meeta Patel NP - Last Filed: 11/22/20 13:45> Physical Exam Vital Signs: Vital Signs: Last Vital Signs Temp 97.3 F 11/22/20 11:01 Pulse 120 H 11/22/20 11:01 Resp 16 11/22/20 11:01 BP 106/60 11/22/20 11:01 Pulse Ox 95 11/22/20 11:01 Body Mass Index 20.9 <Meeta Patel NP - Last Filed: 11/22/20 13:45> Appearing in no acute distress lung sounds are clear to auscultation heart regular rate rhythm, clear S1, S2 positive bowel sounds, abdomen is soft, nontender neuro patient is alert x3, no focal deficits <Meeta Patel NP - Last Filed: 11/22/20 13:45> Objective Data Current Medications Generic Name Dose Route Start Last Admin Trade Name [place] PRN Reason Stop Dose Admin Acetaminophen 650 mg 11/22/20 00:08 11/22/20 09:20 Acetaminophen 325 Mg Tablet PO 650 mg Q6H PRN Administration Pain, Mild (Pain Scale 1-3) Clonidine HCl 0.1 mg 11/22/20 00:10 11/22/20 01:09 Clonidine Hcl 0.1 Mg Tablet PO 0.1 mg BID PRN Administration anxiety/restlessness Protocol Sodium Chloride 1,000 mls @ 100 mls/hr 11/22/20 00:15 11/22/20 10:26 Ns IVCONT 100 mls/hr .Q10H SOHEILA Infusion Piperacillin Sod/Tazobactam 50 mls @ 100 mls/hr 11/22/20 04:00 11/22/20 10:15 Sod 3.375 gm/ Sodium Chloride IV Infused Q6H SOHEILA Infusion Vancomycin HCl 1,000 mg/ 270 mls @ 270 mls/hr 11/22/20 10:00 11/22/20 11:27 Sodium Chloride IV Infused Q12H SOHEILA Infusion Magnesium Hydroxide 30 ml 11/22/20 00:08 Milk Of Magnesia 30 Ml Oral.Susp PO DAILY PRN Constipation Melatonin 6 mg 11/22/20 00:08 11/22/20 01:09 Melatonin 3 Mg Tablet PO 6 mg BEDTIME PRN Administration Insomnia Nicotine 21 mg 11/22/20 01:45 11/22/20 09:20 Nicotine 21 Mg Patch.[id number] TRANSDERMA 21 mg DAILY SOHEILA Administration Oxycodone HCl 15 mg 11/22/20 09:58 11/22/20 10:26 Oxycodone Hcl Immed Release 15 Mg Tablet PO 15 mg Q6H PRN Administration withdrawal Pharmacy Consult 1 each 11/21/20 20:51 Consult Rx Vancomycin Dosing MISCELLANE DAILY PRN Consult order Sodium Chloride 3 ml 11/22/20 08:00 11/22/20 09:18 0.9 % Sodium Chloride Flush 3 Ml Syringe IVFLUSH Not Given QSHIFT SOHEILA <Meeta Patel NP - Last Filed: 11/22/20 13:45> Labs CBC & Chem 7: : 11/23/20 08:49 11/23/20 08:49 <Meeta Patel NP - Last Filed: 11/22/20 13:45> Labs: Laboratory Results - last 24 hr 11/21/20 11/21/20 11/21/20 20:29 20:29 20:29 MCV 80.1 MCH 29.7 MCHC 37.1 H RDW 12.9 Plt Count 140 L MPV 11.1 Immature Gran % (Auto) Cancelled Neut % (Auto) Cancelled Lymph % (Auto) Cancelled [place] % (Auto) Cancelled Eos % (Auto) Cancelled Baso % (Auto) Cancelled Lymph # (Auto) Cancelled [place] # (Auto) Cancelled Eos # (Auto) Cancelled Baso # (Auto) Cancelled Abs Immat Gran (auto) Cancelled Absolute Neuts (auto) Cancelled Absolute Nucleated RBC 0.000 Nucleated RBC % (auto) 0.0 Neutrophils % (Manual) 65 Band Neutrophils % 27 H Lymphocytes % (Manual) 3 L Monocytes % (Manual) 2 Eosinophils % (Manual) 1 Metamyelocytes % 2 Abs Neuts (Manual) 28.1 H Lymphocytes # (Manual) 0.9 Monocytes # (Manual) 0.6 Eosinophils # (Manual) 0.3 Metamyelocytes # 0.6 Platelet Estimate NORMAL Plt Morphology Comment NORMAL RBC Morphology NORMAL Hypochromasia Target Cells Eh Cells Anion Gap 15 Estim Creat Clear Calc 80.7 Estimated GFR > 60 Random Glucose 131 H Lactic Acid Calcium 7.6 L Total Bilirubin 1.9 H Direct Bilirubin 1.5 H AST 27 ALT 23 Alkaline Phosphatase 116 C-Reactive Protein 23.14 H Total Protein 5.3 L Albumin 2.2 L Urine Color Urine Appearance Urine pH Ur Specific [place] Urine Protein Urine Glucose (UA) Urine Ketones Urine Blood Urine Nitrite Ur Leukocyte Esterase Urine RBC Urine WBC Ur Squamous Epith Cells Urine Bacteria Hyaline Casts Urine Mucus COVID-19 (LISA) COVID-19 Clin Com 11/21/20 11/21/20 11/21/20 21:03 21:14 23:53 MCV MCH MCHC RDW Plt Count MPV Immature Gran % (Auto) Neut % (Auto) Lymph % (Auto) [place] % (Auto) Eos % (Auto) Baso % (Auto) Lymph # (Auto) [place] # (Auto) Eos # (Auto) Baso # (Auto) Abs Immat Gran (auto) Absolute Neuts (auto) Absolute Nucleated RBC Nucleated RBC % (auto) Neutrophils % (Manual) Band Neutrophils % Lymphocytes % (Manual) Monocytes % (Manual) Eosinophils % (Manual) Metamyelocytes % Abs Neuts (Manual) Lymphocytes # (Manual) Monocytes # (Manual) Eosinophils # (Manual) Metamyelocytes # Platelet Estimate Plt Morphology Comment RBC Morphology Hypochromasia Target Cells [place] Cells Anion Gap Estim Creat Clear Calc Estimated GFR Random Glucose Lactic Acid 1.5 Calcium Total Bilirubin Direct Bilirubin AST ALT Alkaline Phosphatase C-Reactive Protein Total Protein Albumin Urine Color DARK YELLOW Urine Appearance CLEAR Urine pH 6.0 Ur Specific [place] 1.010 Urine Protein TRACE Urine Glucose (UA) NEG Urine Ketones NEG Urine Blood 1+ H Urine Nitrite NEG Ur Leukocyte Esterase 1+ H Urine RBC 1-4 Urine WBC 5-9 H Ur Squamous Epith Cells 1+ Urine Bacteria TRACE Hyaline Casts 0-2 Urine Mucus 1+ COVID-19 (LISA) Negative COVID-19 Clin Com See Note 11/22/20 11/22/20 05:18 05:18 MCV 80.3 MCH 29.5 MCHC 36.8 H RDW 13.2 Plt Count 133 L MPV 11.5 Immature Gran % (Auto) Cancelled Neut % (Auto) Cancelled Lymph % (Auto) Cancelled [place] % (Auto) Cancelled Eos % (Auto) Cancelled Baso % (Auto) Cancelled Lymph # (Auto) Cancelled [place] # (Auto) Cancelled Eos # (Auto) Cancelled Baso # (Auto) Cancelled Abs Immat Gran (auto) Cancelled Absolute Neuts (auto) Cancelled Absolute Nucleated RBC 0.020 H Nucleated RBC % (auto) 0.1 Neutrophils % (Manual) 77 H Band Neutrophils % 15 H Lymphocytes % (Manual) 4 L Monocytes % (Manual) 3 Eosinophils % (Manual) 1 Metamyelocytes % Abs Neuts (Manual) 26.2 H Lymphocytes # (Manual) 1.1 Monocytes # (Manual) 0.9 Eosinophils # (Manual) 0.3 Metamyelocytes # Platelet Estimate SLIGHTLY DECREASED Plt Morphology Comment NORMAL RBC Morphology NOTED Hypochromasia 1+ (5-14) Target Cells 1+ (5-14) Eh Cells 2+ (3-5) Anion Gap 14 Estim Creat Clear Calc 104.0 Estimated GFR > 60 Random Glucose 107 Lactic Acid Calcium 7.1 L D Total Bilirubin Direct Bilirubin AST ALT Alkaline Phosphatase C-Reactive Protein Total Protein Albumin Urine Color Urine Appearance Urine pH Ur Specific [place] Urine Protein Urine Glucose (UA) Urine Ketones Urine Blood Urine Nitrite Ur Leukocyte Esterase Urine RBC Urine WBC Ur Squamous Epith Cells Urine Bacteria Hyaline Casts Urine Mucus COVID-19 (LISA) COVID-19 Clin Com <Meeta Patel NP - Last Filed: 11/22/20 13:45> Microbiology Microbiology Results: Microbiology 11/21/20 21:14 Blood - Venous Blood Culture - Preliminary 11/21/20 21:14 Blood - Venous Blood Culture - Preliminary <Meeta Patel NP - Last Filed: 11/22/20 13:45> Progress Note: A&P (1) Acute septic pulmonary embolus: Status: Acute <Meeta Patel NP - Last Filed: 11/22/20 13:45> Assessment and Plan: 45-year-old male with a past medical history of IV drug abuse/IV heroin use presented to the hospital with chief complaint of generalized body aches/dry cough. Noted to have significantly elevated white count with bandemia and low-grade temperatures; admitted for further management. Sepsis. On admission, tachycardia, leukocytosis, normal lactic acid Follow cultures Septic emboli. History of heroin abuse No PE on CTA Follow blood cx Echo vancomycin and Zosyn Id consult Echocardiogram IV heroin abuse declined Suboxone Will monitor on COWS protocol. Addiction Medicine consult. hold clonidine due to hypotension add oxycodone for withdrawal symptoms Normocytic anemia. No signs of bleeding follow CBC Mild hyponatremia Normal saline 75 cc/hour; repeat levels. DVT prophylaxis: SCD boots Code status: Full code Attending Dr. Atkinson <Meeta Patel NP - Last Filed: 11/22/20 13:45> Quality Stroke Does the patient have a stroke diagnosis?: No <Meeta Patel NP - Last Filed: 11/22/20 13:45> VTE Prior VTE?: No <Meeta Patel NP - Last Filed: 11/22/20 13:45> VTE Risk Level:: Medical - moderate - high <Meeta Patel NP - Last Filed: 11/22/20 13:45> VTE Device Contraindication: N/A - Device Ordered <Meeta Patel NP - Last Filed: 11/22/20 13:45> VTE Drug Contraindication: Treatment Not Indicated <Meeta Patel NP - Last Filed: 11/22/20 13:45>
[2020-11-22] MEDS: 0.9 % Sodium Chloride 1,000 ML 100 ML IVCONT ×2 (13:58→23:36)
--- NOTE | 2020-11-22 22:49 | W.PM.IDCN ---
History of Present Illness Data of Consult Service Date: 11/22/20 Requesting physician: Leila Atkinson Primary Care Provider: Unknown Physician HPI Reason for consult: bacteremia He presents with weakness for four weeks and inability to ambulate He has no other specific symptoms He denies endocarditis or spinal infection Review of Systems Review of Systems: Yes all other systems are reviewed and are negative PMFSH Past Medical History Medical History Substance abuse Social History Social History Household Members: None Housing: Homeless Do you presently have visiting nurse or other home services: No Patient Tobacco Use Status: Former Tobacco user Tobacco use type: Cigarette Smoked in Last 30 Days: No e-Cigarette/Vaping Use: Former Use Patient Interested in Nicotine Replacement: Yes Patient Given Instructions on How to Stop Smoking: Yes Date Education Initiated: 11/22/20 Use of substances other than those prescribed or required for medical reasons: Yes Substance Use Type: Crack/Cocaine and Heroin Substance Use Frequency: Daily Last Used Substance: Days (ago) Last Used Substance Other:: 11/21/20 Currently Displaying Signs/Symptoms of Drug Intoxication Withdrawal: No Have you been hit, kicked, punched, or otherwise hurt by someone within the past year? If so, by whom?: No Do you feel safe in your current relationship?: No Current Relationship Is there a partner from a previous relationship who is making you feel unsafe now?: No Are you made to feel afraid or neglected: No Advance Directives: No Advance Directives on File: No Do you have thoughts of harming others: None Do you have a plan to hurt others: No Plan Recently lost weight without trying: Yes How much weight loss: Unsure Eating poorly because of decreased appetite: No Nutrition screen score: 4 Nutrition Risks: No Nutritional Risk Poor oral hygiene: No (no top teeth) Meds Allergies Allergy/AdvReac Type Severity Reaction Status Date / Time No Known Allergies Allergy Verified 11/18/20 13:31 Active Medications: Current Medications Generic Name Dose Route Start Last Admin Trade Name Freq PRN Reason Stop Dose Admin Acetaminophen 650 mg 11/22/20 00:08 11/22/20 21:28 Acetaminophen 325 Mg Tablet PO 650 mg Q6H PRN Administration Pain, Mild (Pain Scale 1-3) Clonidine HCl 0.1 mg 11/22/20 00:10 11/22/20 13:58 Clonidine Hcl 0.1 Mg Tablet PO 0.1 mg BID PRN Administration anxiety/restlessness Protocol Sodium Chloride 1,000 mls @ 100 mls/hr 11/22/20 00:15 11/22/20 13:58 Ns IVCONT 100 mls/hr .Q10H SOHEILA Administration Vancomycin HCl 1,000 mg/ 270 mls @ 270 mls/hr 11/22/20 10:00 11/22/20 11:27 Sodium Chloride IV Infused Q12H SOHEILA Infusion Magnesium Hydroxide 30 ml 11/22/20 00:08 Milk Of Magnesia 30 Ml Oral.Susp PO DAILY PRN Constipation Melatonin 6 mg 11/22/20 00:08 11/22/20 21:28 Melatonin 3 Mg Tablet PO 6 mg BEDTIME PRN Administration Insomnia Nicotine 21 mg 11/22/20 01:45 11/22/20 09:20 Nicotine 21 Mg Patch.Td24 TRANSDERMA 21 mg DAILY SOHEILA Administration Oxycodone HCl 15 mg 11/22/20 09:58 11/22/20 17:38 Oxycodone Hcl Immed Release 15 Mg Tablet PO 15 mg Q6H PRN Administration withdrawal Pharmacy Consult 1 each 11/21/20 20:51 Consult Rx Vancomycin Dosing MISCELLANE DAILY PRN Consult order Sodium Chloride 3 ml 11/22/20 08:00 11/22/20 16:17 0.9 % Sodium Chloride Flush 3 Ml Syringe IVFLUSH Not Given QSHIFT [facility] Home Medications Medication Instructions Recorded Confirmed Last Taken Type No Known Home Meds 11/21/20 11/21/20 Unknown History Physical Exam Vital Signs: Vital Signs: Last Vital Signs Temp 99.2 F 11/22/20 19:00 Pulse 113 H 11/22/20 19:00 Resp 16 11/22/20 19:00 BP 95/64 11/22/20 19:00 Pulse Ox 94 11/22/20 19:00 Body Mass Index 20.9 Const: General: cooperative HENMT: Head: Yes normal to inspection Mouth: Normal oral and palatal mucosa present Resp: Effort & Inspection: normal respiratory effort Cardio: Rate: regular rate Rhythm: regular rhythm GI: Palpation (GI): Soft to palpation and nontender Skin: Other: multiple leg abrasions Results Labs CBC & Chem 7: 11/22/20 05:18 11/22/20 05:18 Labs: Short CBC 11/22/20 Range/Units 05:18 WBC 28.5 H (4.8-10.8) X10*3/uL Hgb 9.6 L (14.0-18.0) g/dl Hct 26.1 L (42-52) % Plt Count 133 L (160-400) X10*3/uL BMP 11/22/20 05:18 Sodium 132 L Potassium 3.1 L Chloride 99 Carbon Dioxide 22 BUN 32 H Creatinine 0.77 Calcium 7.1 L D Urine 11/21/20 Range/Units 23:53 Urine Color DARK YELLOW Urine Appearance CLEAR Urine pH 6.0 (5.0-8.0) Ur Specific [place] 1.010 (1.005-1.025) Urine Protein TRACE (NEG-TRACE) MG/DL Urine Glucose (UA) NEG (NEG) MG/DL Microbiology Microbiology Results: Microbiology 11/21/20 21:14 Blood - Venous Blood Culture - Preliminary 11/21/20 21:14 Blood - Venous Blood Culture - Preliminary Assessment and Plan (1) Acute septic pulmonary embolus: Qualifiers: Acute cor pulmonale presence: without acute cor pulmonale Qualified Code(s): I26.90 - Septic pulmonary embolism without acute cor pulmonale Status: Acute (2) Sepsis: Qualifiers: Sepsis acute organ dysfunction status: without acute organ dysfunction Sepsis type: sepsis due to unspecified organism Qualified Code(s): A41.9 - Sepsis, unspecified organism Status: Acute There are gram positive cocci Likely staph aureus ,possible MRSA No other source Suggest Check echo Vancomycin for now,adjust placed on sensitivity Will need placement [place] for bacteremia
[2020-11-23] VITALS (9 sets, daily range): BP systolic 99–137; BP diastolic 62–79; PULSE 102–124; RESP 18–22; TEMP 36.1–36.8; O2SAT 93–96
[2020-11-23] MEDS: cloNIDine HCL 0.1 MG TABLET PO ×2 (02:58→18:08)
[2020-11-23] MEDS: Acetaminophen 325 MG TABLET 650 MG PO (03:30)
[2020-11-23] MEDS: oxyCODONE HCl Immed Release 15 MG TABLET PO ×3 (05:47→16:58)
--- NOTE | 2020-11-23 08:27 | PM.IMPN ---
Subjective Subjective Date of Service: 11/23/20 <Meeta Patel NP - Last Filed: 11/23/20 12:03> 11/23/20 <Leila Atkinson MD - Last Filed: 11/23/20 16:13> Interval History: Follow up bacteremia very weak today <Meeta Patel NP - Last Filed: 11/23/20 12:03> Physical Exam Vital Signs: Vital Signs: Last Vital Signs Temp 97.3 F 11/23/20 07:24 Pulse 105 H 11/23/20 07:24 Resp 20 11/23/20 07:24 BP 115/79 11/23/20 07:24 Pulse Ox 95 11/23/20 07:24 Body Mass Index 20.9 <Meeta Patel NP - Last Filed: 11/23/20 12:03> Appearing in no acute distress, sleeping lung sounds are clear to auscultation heart regular rate rhythm, clear S1, S2 positive bowel sounds, abdomen is soft, nontender neuro patient is alert x3, no focal deficits <Meeta Patel NP - Last Filed: 11/23/20 12:03> Objective Data Current Medications Generic Name Dose Route Start Last Admin Trade Name Freq PRN Reason Stop Dose Admin Acetaminophen 650 mg 11/22/20 00:08 11/23/20 03:30 Acetaminophen 325 Mg Tablet PO 650 mg Q6H PRN Administration Pain, Mild (Pain Scale 1-3) Clonidine HCl 0.1 mg 11/22/20 00:10 11/23/20 02:58 Clonidine Hcl 0.1 Mg Tablet PO 0.1 mg BID PRN Administration anxiety/restlessness Protocol Sodium Chloride 1,000 mls @ 100 mls/hr 11/22/20 00:15 11/22/20 23:36 Ns IVCONT 100 mls/hr .Q10H SOHEILA Administration Vancomycin HCl 1,000 mg/ 270 mls @ 270 mls/hr 11/22/20 10:00 11/23/20 00:33 Sodium Chloride IV Infused Q12H SOHEILA Infusion Lorazepam 0.5 mg 11/23/20 08:10 Lorazepam 0.5 Mg Tablet PO Q6H PRN Anxiety Magnesium Hydroxide 30 ml 11/22/20 00:08 Milk Of Magnesia 30 Ml Oral.Susp PO DAILY PRN Constipation Melatonin 6 mg 11/22/20 00:08 11/22/20 21:28 Melatonin 3 Mg Tablet PO 6 mg BEDTIME PRN Administration Insomnia Nicotine 21 mg 11/22/20 01:45 11/23/20 08:19 Nicotine 21 Mg Patch.Td24 TRANSDERMA Not Given DAILY SOHEILA Oxycodone HCl 15 mg 11/22/20 09:58 11/23/20 05:47 Oxycodone Hcl Immed Release 15 Mg Tablet PO 15 mg Q6H PRN Administration withdrawal Pharmacy Consult 1 each 11/21/20 20:51 Consult Rx Vancomycin Dosing MISCELLANE DAILY PRN Consult order Sodium Chloride 3 ml 11/22/20 08:00 11/23/20 07:27 0.9 % Sodium Chloride Flush 3 Ml Syringe IVFLUSH Not Given QSHIFT SOHEILA <Meeta Patel NP - Last Filed: 11/23/20 12:03> Labs CBC & Chem 7: : 11/23/20 08:49 11/23/20 08:49 <Meeta Patel NP - Last Filed: 11/23/20 12:03> Microbiology Microbiology Results: Microbiology 11/21/20 23:53 Urine clean catch - Clean Catch Midstream Urine Culture - Final No growth. 11/21/20 21:14 Blood - Venous Blood Culture - Preliminary 11/21/20 21:14 Blood - Venous Blood Culture - Preliminary <Meeta Patel NP - Last Filed: 11/23/20 12:03> Progress Note: A&P (1) Acute septic pulmonary embolus: Status: Acute <Meeta Patel NP - Last Filed: 11/23/20 12:03> Assessment and Plan: 45-year-old male with a past medical history of IV drug abuse/IV heroin use presented to the hospital with chief complaint of generalized body aches/dry cough. Noted to have significantly elevated white count with bandemia and low-grade temperatures; admitted for further management. Septic emboli. History of heroin abuse No PE on CTA Gram pos cocci, continue Vancomycin, staph aureus likely MRSA Echo pending ID following Repeat cx, will need PICC line and placement for abx course Sepsis. On admission, tachycardia, leukocytosis, normal lactic acid Follow culture IV heroin abuse declined Suboxone Will monitor on COWS protocol. Addiction Medicine consult. hold clonidine due to hypotension add oxycodone for withdrawal symptoms Normocytic anemia. No signs of bleeding follow CBC Mild hyponatremia. Resolved. Likely from hypovolema IV fluids DVT prophylaxis: SCD boots Code status: Full code Attending Dr. Atkinson <Meeta Patel NP - Last Filed: 11/23/20 12:03> Quality Stroke Does the patient have a stroke diagnosis?: No <Meeta Patel NP - Last Filed: 11/23/20 12:03> VTE Prior VTE?: No <Meeta Patel NP - Last Filed: 11/23/20 12:03> VTE Risk Level:: Medical - moderate - high <Meeta Patel NP - Last Filed: 11/23/20 12:03> VTE Device Contraindication: N/A - Device Ordered <Meeta Patel NP - Last Filed: 11/23/20 12:03> VTE Drug Contraindication: Treatment Not Indicated <Meeta Patel NP - Last Filed: 11/23/20 12:03>
[2020-11-23 09:01] LABS: Hematocrit 28.7 % (42-52); Hemoglobin 10.4 g/dl (14.0-18.0); Mean Corpuscular HGB Conc 36.2 g/dl (31.0-36.0); Mean Corpuscular Volume 79.9 fL (80-98); Mean Platelet Volume 10.2 fL (9.4-12.4); NRBC Pct Auto 0.1 /100WBC (0.0-0.2); Platelet Count 138 X10*3/uL (160-400); Red Blood Count 3.59 X10*6/uL (4.60-5.80); Red Cell Distribution Width 13.3 % (11.0-16.0)
[2020-11-23 09:26] LABS: Anion Gap 13 (12-20); Blood Urea Nitrogen 19 mg/dL (9-16); Calcium 7.4 mg/dL (8.4-10.2); Carbon Dioxide 22 mmol/L (22-29); Chloride 107 mmol/L (96-108); Creatinine Clr Calc Pharmacy 129.1; Estimated Glomerular Filt Rate > 60; Glucose Random 100 mg/dL (60-115); Potassium 3.5 mmol/L (3.3-5.1); Sodium 138 mmol/L (135-145)
[2020-11-23 09:33] LABS: Vancomycin Trough 11.1 mcg/mL (10.0-20.0)
--- NOTE | 2020-11-23 09:33 | MHC.CM.PN ---
CM met with Patient at bedside, who appeared difficult to arouse. Patient stated that he lives alone, has no PCP and no contacts. Patient is here with IVDA/Heroin and would benefit from a Care Team Consult to assist with dc planning. CM will follow.
[2020-11-23] MEDS: 0.9 % Sodium Chloride 1,000 ML 100 ML IVCONT ×2 (09:41→21:10)
[2020-11-23] MEDS: vancomycin HCL 1,000 MG in 0.9 % Sodium Chloride 250 ML 270 MG IV (09:42)
--- NOTE | 2020-11-23 11:39 | MHC.RECOVSUP ---
Recovery Support note: Patient is a 45 year old Croatian speaking male who [place] [facility] [place] leg swelling and body pain and was medically admitted. This development writer met with patient in [phone] with an [facility] yarder boss to discuss his substance use and treatment options. Patient reports a desire to stop using heroin and that he ultimately wants to get back into a methadone maintenance program. Patient reports he was sober for two weeks and relapsed after the of a family member. Patient reports he was able to maintain sobriety by staying busy with personal things. This development writer discussed [facility] and how they have a community of people supporting each other and staying busy with groups and activities. Patient expressed interest and accepted information on this resource. Patient reports he lost all forms of identification and that he would need to look hard to find them. Explained to patient that he will need an ID to get into a methadone program and patient acknowledged. Patient reports he is not interested in Suboxone. Provided patient with information on methadone clinics that he can follow up with when he finds his ID. Discussed with patient how he could work with a Shrimper at [facility] to get a new copy of his ID. Patient acknowledged and reports no questions at this time. Patient reported no withdrawal symptoms at the time of consultation however reports pain related to his infection. Discussed case with patient's RN and Diann Sosa NP.
[2020-11-23] MEDS: LORazepam 0.5 MG TABLET PO ×2 (15:34→21:10)
[2020-11-23] MEDS: oxyCODONE HCl Immed Release 5 MG TABLET 20 MG PO (18:47)
[2020-11-23] MEDS: Melatonin 3 MG TABLET 6 MG PO (21:10)
[2020-11-23] MEDS: vancomycin HCL 1,250 MG in 0.9 % Sodium Chloride 250 ML 166.67 MG IV (21:16)
[2020-11-24] VITALS (12 sets, daily range): BP systolic 110–132; BP diastolic 69–82; PULSE 114–140; RESP 18–40; TEMP 36.5–39.2; O2SAT 92–98
[2020-11-24] MEDS: oxyCODONE HCl Immed Release 5 MG TABLET 20 MG PO ×4 (00:24→18:17)
[2020-11-24] MEDS: 0.9 % Sodium Chloride Flush 3 ML SYRINGE IVFLUSH ×2 (00:29→15:43)
[2020-11-24] MEDS: LORazepam 0.5 MG TABLET PO ×3 (02:13→13:17)
[2020-11-24 03:33] LABS: HIV AB/AG Nonreactive (Nonreactive)
[2020-11-24 03:41] LABS: ~HepC Num1 15.24 S/CO (0.00-0.79); ~Hepatitis C Antibody Reactive (Nonreactive)
[2020-11-24 06:53] LABS: Hematocrit 26.4 % (42-52); Hemoglobin 9.6 g/dl (14.0-18.0); Mean Corpuscular HGB Conc 36.4 g/dl (31.0-36.0); Mean Corpuscular Hemoglobin 29.1 pg (27.0-33.0); Mean Platelet Volume 10.5 fL (9.4-12.4); NRBC Pct Auto 0.1 /100WBC (0.0-0.2); Platelet Count 160 X10*3/uL (160-400); Red Cell Distribution Width 13.6 % (11.0-16.0)
[2020-11-24 07:17] LABS: Anion Gap 16 (12-20); Blood Urea Nitrogen 20 mg/dL (9-16); Calcium 7.1 mg/dL (8.4-10.2); Carbon Dioxide 18 mmol/L (22-29); Chloride 105 mmol/L (96-108); Creatinine Clr Calc Pharmacy 129.1; Estimated Glomerular Filt Rate > 60; Glucose Random 61 mg/dL (60-115); Potassium 3.5 mmol/L (3.3-5.1); Sodium 135 mmol/L (135-145)
[2020-11-24] MEDS: 0.9 % Sodium Chloride 1,000 ML 100 ML IVCONT (07:22)
[2020-11-24] MEDS: cloNIDine HCL 0.1 MG TABLET PO (07:22)
[2020-11-24] MEDS: Nicotine 21 MG PATCH.TD24 TRANSDERMA (07:22)
[2020-11-24 07:30] LABS: White Blood Count 41.5 X10*3/uL (4.8-10.8)
--- NOTE | 2020-11-24 07:30 | CA_ITS ---
Transthoracic Echocardiogram Patient (Last, First, Middle): Porfirio Chiang, Gender: Male Date of : 1975 Age: 45 Procedure Date: 11/24/2020 Procedure Type: Transthoracic Echocardi[place] [facility] [place]: 170.18 cm Weight: 60.33 kg BSA: 1.70 m2 Heart Rate: bpm BP: 124 / 76 mmHg Budget Manager: Referring MD: Michele Crawford MD Symptoms: fever IVDA; ? endocarditis Study Quality: Good ECG Rhythm: Sinus Conclusions: - Normal left ventricular size, thickness, systolic function, and wall motion. - Normal right ventricular cavity size. There is normal right ventricular systolic function. - Cannot rule out aortic valve vegetation. - 2.95 x 1.5 cm vegetation attached to the tricuspid valve. Findings Left Ventricle Normal left ventricular size, thickness, systolic function, and wall motion. The visually estimated ejection fraction is between 55-60%. Diastolic function is normal for age. Right Ventricle Normal right ventricular cavity size. There is normal right ventricular systolic function. Atria The left atrium is normal in size. Aortic Valve There is mild thickening of the aortic valve. There is no aortic valve stenosis. There is no aortic valve regurgitation. Cannot rule out aortic valve vegetation. Mitral Valve The mitral valve appears normal. There is no mitral valve regurgitation. There is no mitral valve stenosis. Pulmonic Valve The pulmonic valve is likely normal. Tricuspid Valve There is mild to moderate tricuspid valve regurgitation. Normal right atrial pressure. There is no evidence of pulmonary hypertension. 2.95 x 1.5 cm vegetation attached to the tricuspid valve. Great Vessels All visible segments of the aorta are normal in size. The visualized portions of the pulmonary artery and branches are normal. Venous The inferior vena cava is normal in size and collapses greater than 50% with inspiration. Pericardium/Pleural There is no evidence of pericardial effusion. Prior Study Comparison No prior study available for comparison. Measurements 2D Linear Measurements IVSd: 0.81 0.6-0.9/0.6-1.0 cm LVIDd: 4.37 3.9-5.3/4.2-5.9 cm LVIDd Index: 2.57 2.4-3.2/2.2-3.1 cm/m2 LVIDs: 3.43 2.0-3.6 cm LVPWd: 0.81 0.7-1.1 cm Ao Root: 3.60 2.1-3.5 cm LA Diam: 2.80 2.7-3.8/3.0-4.0 cm LAIDs Index: 1.65 1.5-2.3 cm/m2 LV Mass: 137.29 67-162/88-224 g LV Mass Index: 80.76 43-95/49-115 g/m2 LVOT Diam: 2.40 3.0+(-)1.3 cm Mitral Valve MV Pk E: 0.72 MV PK A: 0.63 MV Decel Time: 69.00 E/A: 1.10 E'Lateral: 9.46 E'Medial: 16.40 E/E' Med: 4.40 E/E' Lat: 7.60 PHT: 36.00 MVA PHT: 6.11 Decel [place]: 6.97 Aortic Valve AoV Pk Carter: 1.42 AoV Mn Carter: 1.02 AoV VTI: 0.25 AoV Pk Grad: 8.00 Aov Mn Grad: 4.00 CLARE Cont.VTI: 2.81 LVOT LVOT Pk Carter: 1.00 LVOT Mn Carter: 0.77 LVOT VTI: 0.16 LVOT Pk Grad: 4.00 LVOT Mn Grad: 3.00 LVOT Diam: 2.40 LVOT Area: 4.52 Diastolic Function MV Pk E: 0.72 MV Pk A: 0.63 E/A: 1.10 E'Medial: 16.40 E/E' Med: 4.40 E' Laterial: 9.46 E/E' Lat: 7.60 Tricuspid Valve TR Pk Carter: 2.63 TR Pk Grad: 28.00 RA Press: 8.00 RVSP: 36.00 Great Vessels Aorta Ao Root-2D: 3.60 2.0-3.7 cm Ao Asc: 3.10 2.1-3.4 cm Updated in Other Vendor System with Status of Final Bob Conway MD electronically signed on 11/24/2020 7:35:36 PM with status of Final
[2020-11-24] MEDS: vancomycin HCL 1,250 MG in 0.9 % Sodium Chloride 250 ML 166.67 MG IV ×2 (09:42→22:16)
[2020-11-24] MEDS: Lidocaine 4 % Patch ADH..PATCH 2 PATCH TRANSDERMA (09:42)
[2020-11-24] MEDS: Enoxaparin Sodium 60 MG/0.6 ML SYRINGE SUBCUT ×2 (09:42→22:16)
[2020-11-24 10:15] LABS: Hematocrit 25.5 % (42-52); Hemoglobin 9.3 g/dl (14.0-18.0); Mean Corpuscular HGB Conc 36.5 g/dl (31.0-36.0); Mean Corpuscular Volume 79.4 fL (80-98); Mean Platelet Volume 10.3 fL (9.4-12.4); Platelet Count 158 X10*3/uL (160-400); Red Blood Count 3.21 X10*6/uL (4.60-5.80); Red Cell Distribution Width 13.6 % (11.0-16.0)
[2020-11-24 10:20] LABS: INTERNATIONAL NORM RATIO 1.4 (0.9-1.1); Prothrombin Time 15.8 SEC (9.9-13.0)
[2020-11-24 10:22] LABS: White Blood Count 40.1 X10*3/uL (4.8-10.8)
[2020-11-24 10:23] LABS: Partial Thromboplastin Time 34.8 SEC (24.1-38.0)
--- NOTE | 2020-11-24 14:28 | PM.IMPN ---
Subjective Subjective Date of Service: 11/24/20 Interval History: Follow up bacteremia tachypnea and seems more lethergic today Laying in bed, not wanting to get to chair Physical Exam Vital Signs: Vital Signs: Last Vital Signs Temp 98.9 F 11/24/20 11:16 Pulse 125 H 11/24/20 11:16 Resp 36 H 11/24/20 11:16 BP 117/72 11/24/20 11:16 Pulse Ox 98 11/24/20 11:16 Body Mass Index 20.9 Appearing lethargic lung rales heart regular rate rhythm, tachycardia positive bowel sounds, abdomen is soft, nontender neuro patient is sleepy, no focal deficits Objective Data Current Medications Generic Name Dose Route Start Last Admin Trade Name Freq PRN Reason Stop Dose Admin Acetaminophen 650 mg 11/22/20 00:08 11/23/20 03:30 Acetaminophen 325 Mg Tablet PO 650 mg Q6H PRN Administration Pain, Mild (Pain Scale 1-3) Clonidine HCl 0.1 mg 11/22/20 00:10 11/24/20 07:22 Clonidine Hcl 0.1 Mg Tablet PO 0.1 mg BID PRN Administration anxiety/restlessness Protocol Enoxaparin Sodium 60 mg 11/24/20 10:00 11/24/20 09:42 Enoxaparin Sodium 60 Mg/0.6 Ml Syringe SUBCUT 60 mg Q12H SOHEILA Administration Sodium Chloride 1,000 mls @ 100 mls/hr 11/22/20 00:15 11/24/20 07:22 Ns IVCONT 100 mls/hr .Q10H SOHEILA Administration Vancomycin HCl 1,250 mg/ 250 mls @ 166.667 mls/hr 11/23/20 22:00 11/24/20 11:30 Sodium Chloride IV Infused Q12H SOHEILA Infusion Lidocaine 2 patch 11/24/20 10:00 11/24/20 09:42 Lidocaine 4 % Patch Adh..Patch TRANSDERMA 2 patch DAILY SOHEILA Administration Protocol Lorazepam 0.5 mg 11/23/20 08:10 11/24/20 13:17 Lorazepam 0.5 Mg Tablet PO 0.5 mg Q6H PRN Administration Anxiety Magnesium Hydroxide 30 ml 11/22/20 00:08 Milk Of Magnesia 30 Ml Oral.Susp PO DAILY PRN Constipation Melatonin 6 mg 11/22/20 00:08 11/23/20 21:10 Melatonin 3 Mg Tablet PO 6 mg BEDTIME PRN Administration Insomnia Nicotine 21 mg 11/22/20 01:45 11/24/20 07:22 Nicotine 21 Mg Patch.Td24 TRANSDERMA 21 mg DAILY SOHEILA Administration Oxycodone HCl 20 mg 11/23/20 18:33 11/24/20 11:34 Oxycodone Hcl Immed Release 5 Mg Tablet PO 20 mg Q4H PRN Administration withdrawal Pharmacy Consult 1 each 11/21/20 20:51 Consult Rx Vancomycin Dosing MISCELLANE DAILY PRN Consult order Sodium Chloride 3 ml 11/22/20 08:00 11/24/20 07:23 0.9 % Sodium Chloride Flush 3 Ml Syringe IVFLUSH Not Given QSHIFT [facility] Labs CBC & Chem 7: 11/24/20 10:03 11/24/20 05:18 Labs: Laboratory Results - last 24 hr 11/22/20 11/22/20 11/23/20 23:01 23:01 08:49 MCV MCH MCHC RDW Plt Count MPV Absolute Nucleated RBC Nucleated RBC % (auto) Smear Path Review SEE NOTE PT INR APTT Anion Gap Estim Creat Clear Calc Estimated GFR Random Glucose Calcium Hepatitis C Ab (EIA) Reactive H HIV 1&2 Ab/P24 Ag 4thGn Nonreactive 11/24/20 11/24/20 11/24/20 05:18 05:18 10:03 MCV 80.0 79.4 L MCH 29.1 29.0 MCHC 36.4 H 36.5 H RDW 13.6 13.6 Plt Count 160 158 L MPV 10.5 10.3 Absolute Nucleated RBC 0.030 H 0.000 Nucleated RBC % (auto) 0.1 0.0 Smear Path Review PT INR APTT Anion Gap 16 Estim Creat Clear Calc 129.1 Estimated GFR > 60 Random Glucose 61 D Calcium 7.1 L Hepatitis C Ab (EIA) HIV 1&2 Ab/P24 Ag 4thGn 11/24/20 10:03 MCV MCH MCHC RDW Plt Count MPV Absolute Nucleated RBC Nucleated RBC % (auto) Smear Path Review PT 15.8 H INR 1.4 H APTT 34.8 Anion Gap Estim Creat Clear Calc Estimated GFR Random Glucose Calcium Hepatitis C Ab (EIA) HIV 1&2 Ab/P24 Ag 4thGn Microbiology Microbiology Results: Microbiology 11/21/20 21:14 Blood - Venous Blood Culture - Final Methicillin Res Staph Aureus 11/21/20 21:14 Blood - Venous Blood Culture - Final Methicillin Res Staph Aureus 11/21/20 23:53 Urine clean catch - Clean Catch Midstream Urine Culture - Final No growth. Progress Note: A&P (1) Acute septic pulmonary embolus: Status: Acute (2) Sepsis: Status: Acute Assessment and Plan: 45-year-old male with a past medical history of IV drug abuse/IV heroin use presented to the hospital with chief complaint of generalized body aches/dry cough. Noted to have significantly elevated white count with bandemia and low-grade temperatures; admitted for further management. Pulmonary edema. 7 liters positive IV lasix Caro catheter BNP stat ABG 7.55/23/80/20 Discussed case with sewer separation designer Septic emboli. History of heroin abuse No PE on CTA Gram pos cocci, continue Vancomycin, staph aureus, MRSA more lethargic and tachypneic today MRI showed no acute changes Repeat CXR to r/o acute process Echo pending Cardiology consult ID following Repeat cx, will need PICC line and placement for abx course Lovenox RAYSA tomorrow, NPO after midnight Sepsis. On admission, tachycardia, leukocytosis, normal lactic acid worsening leukocytosis 40.1, tachypnea and tachycardia. MRSA pos IV heroin abuse declined Suboxone Will monitor on COWS protocol. Addiction Medicine consult. hold clonidine due to hypotension oxycodone for withdrawal symptoms Normocytic anemia. No signs of bleeding follow CBC Mild hyponatremia. Resolved. Likely from hypovolema IV fluids DVT prophylaxis Lovenox Code status: Full code Attending Dr. Coronado Quality Stroke Does the patient have a stroke diagnosis?: No VTE Prior VTE?: No VTE Risk Level:: Medical - moderate - high VTE Device Contraindication: N/A - Device Ordered VTE Drug Contraindication: Treatment Not Indicated
--- NOTE | 2020-11-24 15:29 | PM.IDPN ---
Subjective Subjective Date of Service: 11/24/20 Critical Care Time (minutes): 15 Comment: he has some fatigue not speaking very articulately Objective Data Labs CBC & Chem 7: 11/24/20 10:03 11/24/20 05:18 Labs: Laboratory Results - last 24 hr 11/22/20 11/22/20 11/23/20 23:01 23:01 08:49 WBC RBC Hgb Hct MCV MCH MCHC RDW Plt Count MPV Absolute Nucleated RBC Nucleated RBC % (auto) Smear Path Review SEE NOTE PT INR APTT Sodium Potassium Chloride Carbon Dioxide Anion Gap BUN Creatinine Estim Creat Clear Calc Estimated GFR Random Glucose Calcium Hepatitis C Ab (EIA) Reactive H HIV 1&2 Ab/P24 Ag 4thGn Nonreactive 11/24/20 11/24/20 11/24/20 05:18 05:18 10:03 WBC 41.5 H* 40.1 H* RBC 3.30 L 3.21 L Hgb 9.6 L 9.3 L Hct 26.4 L 25.5 L MCV 80.0 79.4 L MCH 29.1 29.0 MCHC 36.4 H 36.5 H RDW 13.6 13.6 Plt Count 160 158 L MPV 10.5 10.3 Absolute Nucleated RBC 0.030 H 0.000 Nucleated RBC % (auto) 0.1 0.0 Smear Path Review PT INR APTT Sodium 135 Potassium 3.5 Chloride 105 Carbon Dioxide 18 L Anion Gap 16 BUN 20 H Creatinine 0.62 Estim Creat Clear Calc 129.1 Estimated GFR > 60 Random Glucose 61 D Calcium 7.1 L Hepatitis C Ab (EIA) HIV 1&2 Ab/P24 Ag 4thGn 11/24/20 10:03 WBC RBC Hgb Hct MCV MCH MCHC RDW Plt Count MPV Absolute Nucleated RBC Nucleated RBC % (auto) Smear Path Review PT 15.8 H INR 1.4 H APTT 34.8 Sodium Potassium Chloride Carbon Dioxide Anion Gap BUN Creatinine Estim Creat Clear Calc Estimated GFR Random Glucose Calcium Hepatitis C Ab (EIA) HIV 1&2 Ab/P24 Ag 4thGn Microbiology Microbiology Results: Microbiology 11/21/20 21:14 Blood - Venous Blood Culture - Final Methicillin Res Staph Aureus 11/21/20 21:14 Blood - Venous Blood Culture - Final Methicillin Res Staph Aureus 11/21/20 23:53 Urine clean catch - Clean Catch Midstream Urine Culture - Final No growth. Physical Exam Vital Signs: Vital Signs: Last Vital Signs Temp 98.1 F 11/24/20 15:02 Pulse 133 H 11/24/20 15:02 Resp 20 11/24/20 15:02 BP 132/82 11/24/20 15:02 Pulse Ox 96 11/24/20 15:02 Body Mass Index 20.9 Const: General: cooperative HENMT: Head: Yes normal to inspection Mouth: Normal oral and palatal mucosa present Resp: Effort & Inspection: normal respiratory effort Cardio: Rate: regular rate Rhythm: regular rhythm GI: Palpation (GI): Soft to palpation and nontender Extrem: General: Yes normal to inspection Assessment and Plan Assessment and plan (1) Acute septic pulmonary embolus: Status: Acute (2) Sepsis: Problem details: He has had MRSA bacteremia He is awaiting clearance. His MRI is unremarkable. Status: Acute Assessment and Plan: Continue Vancomycin,likely six weeks due to concern over septic emboli. Await full echo report Time Spent With Patient Time: Total time spent is greater than 50% in coordination of care (as documented) at patient's floor/unit and/or counseling patient: Time with patient: 15 - 24 minutes
[2020-11-24 15:39] LABS: ABG Base Excess -0.3 mmol/L; ABG HCO3 20 mmol/L (22-26); ABG pCO2 23 mmHg (32-45); ABG pCO2 TC 23 mmHg (32-45); ABG pH 7.55 (7.35-7.45); ABG pH TC 7.55 (7.35-7.45); ABG pO2 80 mmHg (83-108); ABG pO2 TC 78 (83-108)
[2020-11-24 15:40] LABS: ABG Refer to POC result
[2020-11-24] MEDS: Furosemide 20 MG/2 ML VIAL IVPUSH (15:42)
--- NOTE | 2020-11-24 16:02 | PM.EVENT ---
Event Note Date of Service: 11/24/20 Event Note: Addiction note Patient quite lethargic today. Unable to engage in interview. Will continue to follow and check in daily.
--- NOTE | 2020-11-24 16:06 | PM.CCN ---
Critical Care Event Note Summary Date of Service: 11/24/20 Code activated: No Narrative: 45-year-old gentleman with underlying substance abuse, MRSA bacteremia with possible under cardiac and septic emboli treated with IV vancomycin. 2D echocardiogram is pending. Patient is normotensive. Normoxemic on room air. 7 L positive since admission, tachycardia in 120s/130s, lethargic, arousable, alert and oriented then. Lung sounds coarse with bibasilar crackles Agree with gentle diuresis and obtaining arterial blood gas. At this time patient does not require intensive care level of monitoring. Please notify for re-evaluation, if patient's condition changes. Critical Care Time (minutes): 0
[2020-11-24 16:48] LABS: B Type Natriuretic Peptide 73 pg/mL (<100)
[2020-11-24] MEDS: Piperacillin Sodium/Tazobactam 4.5 GM in 0.9 % Sodium Chloride 100 ML IV (18:24)
[2020-11-24] MEDS: Acetaminophen 325 MG TABLET 650 MG PO (20:41)
[2020-11-24 21:51] LABS: Vancomycin Trough 11.9 mcg/mL (10.0-20.0)
--- NOTE | 2020-11-24 22:11 | PM.CNCAR ---
History of Present Illness History of Present Illness Date of Service: 11/24/20 Requesting physician: Meeta Patel Chief complaint: Endocarditis Narrative: 45-year-old gentleman with IV drug abuse presenting with body aches, fevers and septic pulmonary emboli. 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 He is on antibiotics. At the time of interview was denying any symptoms. [facility] Past Medical History Medical History Substance abuse Social History Social History Household Members: None Housing: Homeless Do you presently have visiting nurse or other home services: No Patient Tobacco Use Status: Former Tobacco user Tobacco use type: Cigarette Smoked in Last 30 Days: No e-Cigarette/Vaping Use: Former Use Patient Interested in Nicotine Replacement: Yes Patient Given Instructions on How to Stop Smoking: Yes Date Education Initiated: 11/22/20 Use of substances other than those prescribed or required for medical reasons: Yes Substance Use Type: Crack/Cocaine and Heroin Substance Use Frequency: Daily Last Used Substance: Days (ago) Last Used Substance Other:: 11/21/20 Currently Displaying Signs/Symptoms of Drug Intoxication Withdrawal: Yes Have you been hit, kicked, punched, or otherwise hurt by someone within the past year? If so, by whom?: No Do you feel safe in your current relationship?: No Current Relationship Is there a partner from a previous relationship who is making you feel unsafe now?: No Are you made to feel afraid or neglected: No Advance Directives: No Advance Directives on File: No Do you have thoughts of harming others: None Do you have a plan to hurt others: No Plan Recently lost weight without trying: Yes How much weight loss: Unsure Eating poorly because of decreased appetite: No Nutrition screen score: 4 Nutrition Risks: No Nutritional Risk Poor oral hygiene: No (no top teeth) service: No Current occupational status: unemployed Meds Allergies Allergy/AdvReac Type Severity Reaction Status Date / Time No Known Allergies Allergy Verified 11/18/20 13:31 Active Medications: Current Medications Generic Name Dose Route Start Last Admin Trade Name Freq PRN Reason Stop Dose Admin Acetaminophen 650 mg 11/22/20 00:08 11/24/20 20:41 Acetaminophen 325 Mg Tablet PO 650 mg Q6H PRN Administration Pain, Mild (Pain Scale 1-3) Clonidine HCl 0.1 mg 11/22/20 00:10 11/24/20 07:22 Clonidine Hcl 0.1 Mg Tablet PO 0.1 mg BID PRN Administration anxiety/restlessness Protocol Enoxaparin Sodium 60 mg 11/24/20 10:00 11/24/20 09:42 Enoxaparin Sodium 60 Mg/0.6 Ml Syringe SUBCUT 60 mg Q12H SOHEILA Administration Furosemide 20 mg 11/25/20 09:00 Furosemide 20 Mg/2 Ml Vial IVPUSH BID@0900,1800 SOHEILA Protocol Vancomycin HCl 1,250 mg/ 250 mls @ 166.667 mls/hr 11/23/20 22:00 11/24/20 11:30 Sodium Chloride IV Infused Q12H SOHELIA Infusion Piperacillin Sod/Tazobactam 100 mls @ 200 mls/hr 11/24/20 18:00 11/24/20 19:00 Sod 4.5 gm/ Sodium Chloride IV Infused Q6H SOHEILA Infusion Lidocaine 2 patch 11/24/20 10:00 11/24/20 09:42 Lidocaine 4 % Patch Adh..Patch TRANSDERMA 2 patch DAILY SOHEILA Administration Protocol Lorazepam 0.5 mg 11/23/20 08:10 11/24/20 13:17 Lorazepam 0.5 Mg Tablet PO 0.5 mg Q6H PRN Administration Anxiety Magnesium Hydroxide 30 ml 11/22/20 00:08 Milk Of Magnesia 30 Ml Oral.Susp PO DAILY PRN Constipation Melatonin 6 mg 11/22/20 00:08 11/23/20 21:10 Melatonin 3 Mg Tablet PO 6 mg BEDTIME PRN Administration Insomnia Nicotine 21 mg 11/22/20 01:45 11/24/20 07:22 Nicotine 21 Mg Patch.Td24 TRANSDERMA 21 mg DAILY SOHEILA Administration Oxycodone HCl 20 mg 11/23/20 18:33 11/24/20 18:17 Oxycodone Hcl Immed Release 5 Mg Tablet PO 20 mg Q4H PRN Administration withdrawal Pharmacy Consult 1 each 11/21/20 20:51 Consult Rx Vancomycin Dosing MISCELLANE DAILY PRN Consult order Sodium Chloride 3 ml 11/22/20 08:00 11/24/20 15:43 0.9 % Sodium Chloride Flush 3 Ml Syringe IVFLUSH 3 ml QSHIFT SOHEILA Administration Home Medications Medication Instructions Recorded Confirmed Last Taken Type No Known Home Meds 11/21/20 11/21/20 Unknown History Physical Exam Vital Signs: Vital Signs: Last Vital Signs Temp 102.6 F H 11/24/20 20:47 Pulse 140 H 11/24/20 20:47 Resp 40 H 11/24/20 20:47 BP 132/82 11/24/20 18:58 Pulse Ox 94 11/24/20 18:58 Body Mass Index 20.9 GENERAL APPEARANCE: ill-appearing. NECK: no carotid bruit, no jugular venous distention. SKIN: no suspicious lesions, warm and dry. HEART: no murmurs, tachycardic. LUNGS: clear to auscultation bilaterally. tachypneic. ABDOMEN: soft, nontender. EXTREMITIES: no edema. PERIPHERAL PULSES: equal. NEUROLOGIC: No gross deficits, AAO X 3 Results Labs and Meds Result diagrams: 11/24/20 10:03 11/24/20 05:18 Lab results: Laboratory Results - last 24 hr 11/22/20 11/22/20 11/23/20 23:01 23:01 08:49 WBC RBC Hgb Hct MCV MCH MCHC RDW Plt Count MPV Absolute Nucleated RBC Nucleated RBC % (auto) Smear Path Review SEE NOTE PT INR APTT O2 Saturation ABG pH at Pt Temp ABG pH (Temp Correct) ABG pCO2 at Pt Temp ABG pCO2 (Temp Corrct ABG pO2 at Pt Temp ABG pO2 (Temp Correct ABG HCO3 ABG Base Excess (Actual) Sodium Potassium Chloride Carbon Dioxide Anion Gap BUN Creatinine Estim Creat Clear Calc Estimated GFR Random Glucose Lactic Acid Calcium B-Natriuretic Peptide Vancomycin Trough Hepatitis C Ab (EIA) Reactive H HIV 1&2 Ab/P24 Ag 4thGn Nonreactive 11/24/20 11/24/20 11/24/20 05:18 05:18 10:03 WBC 41.5 H* 40.1 H* RBC 3.30 L 3.21 L Hgb 9.6 L 9.3 L Hct 26.4 L 25.5 L MCV 80.0 79.4 L MCH 29.1 29.0 MCHC 36.4 H 36.5 H RDW 13.6 13.6 Plt Count 160 158 L MPV 10.5 10.3 Absolute Nucleated RBC 0.030 H 0.000 Nucleated RBC % (auto) 0.1 0.0 Smear Path Review PT INR APTT O2 Saturation ABG pH at Pt Temp ABG pH (Temp Correct) ABG pCO2 at Pt Temp ABG pCO2 (Temp Corrct ABG pO2 at Pt Temp ABG pO2 (Temp Correct ABG HCO3 ABG Base Excess (Actual) Sodium 135 Potassium 3.5 Chloride 105 Carbon Dioxide 18 L Anion Gap 16 BUN 20 H Creatinine 0.62 Estim Creat Clear Calc 129.1 Estimated GFR > 60 Random Glucose 61 D Lactic Acid Calcium 7.1 L B-Natriuretic Peptide Vancomycin Trough Hepatitis C Ab (EIA) HIV 1&2 Ab/P24 Ag 4thGn 11/24/20 11/24/20 11/24/20 10:03 15:30 16:10 WBC RBC Hgb Hct MCV MCH MCHC RDW Plt Count MPV Absolute Nucleated RBC Nucleated RBC % (auto) Smear Path Review PT 15.8 H INR 1.4 H APTT 34.8 O2 Saturation 96.0 ABG pH at Pt Temp 7.55 H ABG pH (Temp Correct) 7.55 H ABG pCO2 at Pt Temp 23 L ABG pCO2 (Temp Corrct 23 L ABG pO2 at Pt Temp 80 L ABG pO2 (Temp Correct 78 L ABG HCO3 20 L ABG Base Excess (Actual) -0.3 Sodium Potassium Chloride Carbon Dioxide Anion Gap BUN Creatinine Estim Creat Clear Calc Estimated GFR Random Glucose Lactic Acid Calcium B-Natriuretic Peptide 73 Vancomycin Trough Hepatitis C Ab (EIA) HIV 1&2 Ab/P24 Ag 4thGn 11/24/20 11/24/20 16:10 21:03 WBC RBC Hgb Hct MCV MCH MCHC RDW Plt Count MPV Absolute Nucleated RBC Nucleated RBC % (auto) Smear Path Review PT INR APTT O2 Saturation ABG pH at Pt Temp ABG pH (Temp Correct) ABG pCO2 at Pt Temp ABG pCO2 (Temp Corrct ABG pO2 at Pt Temp ABG pO2 (Temp Correct ABG HCO3 ABG Base Excess (Actual) Sodium Potassium Chloride Carbon Dioxide Anion Gap BUN Creatinine Estim Creat Clear Calc Estimated GFR Random Glucose Lactic Acid 1.0 Calcium B-Natriuretic Peptide Vancomycin Trough 11.9 Hepatitis C Ab (EIA) HIV 1&2 Ab/P24 Ag 4thGn Imaging Radiologist's impression: Impressions Brain MRI 11/24/20 12:11 IMPRESSION: No acute infarct, mass lesion, intracranial hemorrhage, or evidence of hydrocephalus. Chest X-Ray 11/24/20 14:50 IMPRESSION: Increasing cavitary nodules and larger denser areas of airspace disease in the right lateral midlung and left lower lobe and increasing left pleural effusion compared to previous exams. Assessment and Plan (1) Acute septic pulmonary embolus: Qualifiers: Acute cor pulmonale presence: without acute cor pulmonale Qualified Code(s): I26.90 - Septic pulmonary embolism without acute cor pulmonale Status: Acute (2) Infective endocarditis: Status: Acute 45 gentleman with IV heroin abuse who is presenting for bacteremia, septic pulmonary emboli and tricuspid valve endocarditis. Aortic valve is mildly thickened and there is concern for vegetation on aortic valve also. He needs transesophageal echocardiogram to assess the left-sided valves and to rule out aortic root abscess. I have discussed the case with Cardiothoracic surgery at [facility]. Currently the recommendation is to treat him medically with IV antibiotics. if RAYSA showed that he has aortic root abscess or any other surgical indications and will discuss the case again with cardiothoracic surgery at [facility]. Currently the plan is to conservatively treat him with IV antibiotics and do RAYSA on him potentially tomorrow. Keep NPO after midnight. if he is clinically stable then we will do this tomorrow. Thank you for allowing me to participate in the care of your patient. Please feel free to contact me if you have any questions. Procedures Date of Service Date of Service: 11/24/20
[2020-11-25] VITALS (16 sets, daily range): BP systolic 91–148; BP diastolic 52–85; PULSE 116–155; RESP 18–28; TEMP 36.8–39.7; O2SAT 93–100
--- NOTE | 2020-11-25 | ECG_ITS ---
Test Reason : tachycardia Blood Pressure : / mmHG Vent. Rate : 132 BPM Atrial Rate : 132 BPM P-R Int : 136 ms QRS Dur : 086 ms QT Int : 296 ms P-R-T Axes : 063 068 054 degrees QTc Int : 438 ms Sinus tachycardia Possible Left atrial enlargement Nonspecific ST abnormality Abnormal ECG No previous ECGs available Referred By: Brayan Levin Electronically Signed By:Bob Conway
[2020-11-25] MEDS: Piperacillin Sodium/Tazobactam 4.5 GM in 0.9 % Sodium Chloride 100 ML IV ×2 (01:48→05:34)
[2020-11-25] MEDS: oxyCODONE HCl Immed Release 5 MG TABLET 20 MG PO ×2 (04:56→15:46)
[2020-11-25] MEDS: Acetaminophen 325 MG TABLET 650 MG PO ×2 (04:57→16:58)
[2020-11-25 05:56] LABS: Hematocrit 23.9 % (42-52); Hemoglobin 8.6 g/dl (14.0-18.0); Mean Corpuscular Hemoglobin 29.1 pg (27.0-33.0); Mean Corpuscular Volume 80.7 fL (80-98); Mean Platelet Volume 10.7 fL (9.4-12.4); Platelet Count 155 X10*3/uL (160-400); Red Blood Count 2.96 X10*6/uL (4.60-5.80); Red Cell Distribution Width 14.3 % (11.0-16.0)
[2020-11-25 06:06] LABS: White Blood Count 41.2 X10*3/uL (4.8-10.8)
[2020-11-25 06:22] LABS: Alanine Aminotransferase 17 U/L (0-40); Albumin Level 1.7 g/dL (3.5-5.0); Alkaline Phosphatase 266 U/L (39-117); Anion Gap 15 (12-20); Aspartate Amino Transferase 46 U/L (5-37); Bilirubin Direct 1.6 mg/dL (0.0-0.5); Bilirubin Total 2.2 mg/dL (0.0-1.0); Blood Urea Nitrogen 23 mg/dL (9-16); Calcium 7.1 mg/dL (8.4-10.2); Carbon Dioxide 16 mmol/L (22-29); Chloride 106 mmol/L (96-108); Creatinine Clr Calc Pharmacy 129.1; Estimated Glomerular Filt Rate > 60; Glucose Random 102 mg/dL (60-115); Potassium 3.6 mmol/L (3.3-5.1); Sodium 133 mmol/L (135-145); Total Protein 5.2 g/dL (6.5-8.0)
[2020-11-25] MEDS: Furosemide 20 MG/2 ML VIAL IVPUSH ×2 (08:06→21:27)
[2020-11-25] MEDS: Nicotine 21 MG PATCH.TD24 TRANSDERMA (08:08)
[2020-11-25] MEDS: Lidocaine 4 % Patch ADH..PATCH 2 PATCH TRANSDERMA (08:10)
[2020-11-25 08:18] LABS: INTERNATIONAL NORM RATIO 1.3 (0.9-1.1); Prothrombin Time 15.3 SEC (9.9-13.0)
[2020-11-25] MEDS: 0.9 % Sodium Chloride Flush 3 ML SYRINGE IVFLUSH ×2 (09:12→23:45)
--- NOTE | 2020-11-25 10:24 | PM.PNCARD ---
Subjective Subjective Date of Service: 11/25/20 Interval history: Says feeling good. For RAYSA today. Physical Exam Vital Signs: Last Vital Signs Temp 99.9 F 11/25/20 07:12 Pulse 120 H 11/25/20 07:12 Resp 22 H 11/25/20 07:12 BP 114/71 11/25/20 07:12 Pulse Ox 93 11/25/20 07:12 Body Mass Index 20.9 GENERAL APPEARANCE: ill-appearing. NECK: no carotid bruit, no jugular venous distention. SKIN: no suspicious lesions, warm and dry. HEART: no murmurs, tachycardic. LUNGS: clear to auscultation bilaterally. ABDOMEN: soft, nontender. EXTREMITIES: no edema. PERIPHERAL PULSES: equal. NEUROLOGIC: No gross deficits, AAO X 3 Results Labs and Meds Result diagrams: 11/25/20 05:27 11/25/20 05:27 Lab results: Laboratory Results - last 24 hr 11/23/20 11/24/20 11/24/20 08:49 10:03 15:30 WBC RBC Hgb Hct MCV MCH MCHC RDW Plt Count MPV Absolute Nucleated RBC Nucleated RBC % (auto) Smear Path Review SEE NOTE PT 15.8 H INR 1.4 H APTT 34.8 O2 Saturation 96.0 ABG pH at Pt Temp 7.55 H ABG pH (Temp Correct) 7.55 H ABG pCO2 at Pt Temp 23 L ABG pCO2 (Temp Corrct 23 L ABG pO2 at Pt Temp 80 L ABG pO2 (Temp Correct 78 L ABG HCO3 20 L ABG Base Excess (Actual) -0.3 Sodium Potassium Chloride Carbon Dioxide Anion Gap BUN Creatinine Estim Creat Clear Calc Estimated GFR Random Glucose Lactic Acid Calcium Total Bilirubin Direct Bilirubin AST ALT Alkaline Phosphatase B-Natriuretic Peptide Total Protein Albumin Vancomycin Trough 11/24/20 11/24/20 11/24/20 16:10 16:10 21:03 WBC RBC Hgb Hct MCV MCH MCHC RDW Plt Count MPV Absolute Nucleated RBC Nucleated RBC % (auto) Smear Path Review PT INR APTT O2 Saturation ABG pH at Pt Temp ABG pH (Temp Correct) ABG pCO2 at Pt Temp ABG pCO2 (Temp Corrct ABG pO2 at Pt Temp ABG pO2 (Temp Correct ABG HCO3 ABG Base Excess (Actual) Sodium Potassium Chloride Carbon Dioxide Anion Gap BUN Creatinine Estim Creat Clear Calc Estimated GFR Random Glucose Lactic Acid 1.0 Calcium Total Bilirubin Direct Bilirubin AST ALT Alkaline Phosphatase B-Natriuretic Peptide 73 Total Protein Albumin Vancomycin Trough 11.9 11/25/20 11/25/20 11/25/20 05:27 05:27 05:27 WBC 41.2 H* RBC 2.96 L Hgb 8.6 L Hct 23.9 L MCV 80.7 MCH 29.1 MCHC 36.0 RDW 14.3 Plt Count 155 L MPV 10.7 Absolute Nucleated RBC 0.020 H Nucleated RBC % (auto) 0.0 Smear Path Review PT INR APTT O2 Saturation ABG pH at Pt Temp ABG pH (Temp Correct) ABG pCO2 at Pt Temp ABG pCO2 (Temp Corrct ABG pO2 at Pt Temp ABG pO2 (Temp Correct ABG HCO3 ABG Base Excess (Actual) Sodium 133 L Potassium 3.6 Chloride 106 Carbon Dioxide 16 L Anion Gap 15 BUN 23 H Creatinine 0.62 Estim Creat Clear Calc 129.1 Estimated GFR > 60 Random Glucose 102 D Lactic Acid Calcium 7.1 L Total Bilirubin 2.2 H Direct Bilirubin 1.6 H AST 46 H D ALT 17 Alkaline Phosphatase 266 H D B-Natriuretic Peptide Total Protein 5.2 L Albumin 1.7 L D Vancomycin Trough 11/25/20 08:01 WBC RBC Hgb Hct MCV MCH MCHC RDW Plt Count MPV Absolute Nucleated RBC Nucleated RBC % (auto) Smear Path Review PT 15.3 H INR 1.3 H APTT O2 Saturation ABG pH at Pt Temp ABG pH (Temp Correct) ABG pCO2 at Pt Temp ABG pCO2 (Temp Corrct ABG pO2 at Pt Temp ABG pO2 (Temp Correct ABG HCO3 ABG Base Excess (Actual) Sodium Potassium Chloride Carbon Dioxide Anion Gap BUN Creatinine Estim Creat Clear Calc Estimated GFR Random Glucose Lactic Acid Calcium Total Bilirubin Direct Bilirubin AST ALT Alkaline Phosphatase B-Natriuretic Peptide Total Protein Albumin Vancomycin Trough Imaging Radiologist's impression: Impressions Brain MRI 11/24/20 12:11 IMPRESSION: No acute infarct, mass lesion, intracranial hemorrhage, or evidence of hydrocephalus. Chest X-Ray 11/24/20 14:50 IMPRESSION: Increasing cavitary nodules and larger denser areas of airspace disease in the right lateral midlung and left lower lobe and increasing left pleural effusion compared to previous exams. Progress Note: A&P Assessment and plan (1) Infective endocarditis: Status: Acute Assessment and Plan: 45-year-old gentleman with IV drug use and bacteremia. He has tricuspid valve vegetations seen on the transthoracic echocardiogram. We will do RAYSA today to assess the left-sided valves in more detail because aortic valve appeared mildly thickened in some views and a vegetation cannot be ruled out. Continue antibiotics. Thank you for allowing me to participate in the care of your patient. Please feel free to contact me if you have any questions. Fall Risk Details Current Medications: Current Medications Generic Name Dose Route Start Last Admin Trade Name Freq PRN Reason Stop Dose Admin Acetaminophen 650 mg 11/22/20 00:08 11/25/20 04:57 Acetaminophen 325 Mg Tablet PO 650 mg Q6H PRN Administration Pain, Mild (Pain Scale 1-3) Clonidine HCl 0.1 mg 11/22/20 00:10 11/24/20 07:22 Clonidine Hcl 0.1 Mg Tablet PO 0.1 mg BID PRN Administration anxiety/restlessness Protocol Furosemide 20 mg 11/25/20 09:00 11/25/20 08:06 Furosemide 20 Mg/2 Ml Vial IVPUSH 20 mg BID@0900,1800 SOHEILA Administration Protocol Vancomycin HCl 1,250 mg/ 250 mls @ 166.667 mls/hr 11/23/20 22:00 11/25/20 01:55 Sodium Chloride IV Infused Q12H SOHEILA Infusion Albumin Human 100 mls @ 100 mls/hr 11/25/20 09:00 Kedbumin 25 % IV 11/25/20 10:59 Q1H SOHEILA Lidocaine 2 patch 11/24/20 10:00 11/25/20 08:10 Lidocaine 4 % Patch Adh..Patch TRANSDERMA 2 patch DAILY SOHEILA Administration Protocol Lorazepam 0.5 mg 11/23/20 08:10 11/24/20 13:17 Lorazepam 0.5 Mg Tablet PO 0.5 mg Q6H PRN Administration Anxiety Magnesium Hydroxide 30 ml 11/22/20 00:08 Milk Of Magnesia 30 Ml Oral.Susp PO DAILY PRN Constipation Melatonin 6 mg 11/22/20 00:08 11/23/20 21:10 Melatonin 3 Mg Tablet PO 6 mg BEDTIME PRN Administration Insomnia Nicotine 21 mg 11/22/20 01:45 11/25/20 08:08 Nicotine 21 Mg Patch.Td24 TRANSDERMA 21 mg DAILY SOHEILA Administration Oxycodone HCl 20 mg 11/23/20 18:33 11/25/20 04:56 Oxycodone Hcl Immed Release 5 Mg Tablet PO 20 mg Q4H PRN Administration withdrawal Pharmacy Consult 1 each 11/21/20 20:51 Consult Rx Vancomycin Dosing MISCELLANE DAILY PRN Consult order Sodium Chloride 3 ml 11/22/20 08:00 11/25/20 09:12 0.9 % Sodium Chloride Flush 3 Ml Syringe IVFLUSH 3 ml QSHIFT SOHEILA Administration Time Spent With Patient Time: Total time spent is greater than 50% in coordination of care (as documented) at patient's floor/unit and/or counseling patient: Time with patient: 25 - 35 minutes Progress Note: Quality Stroke Does the patient have a stroke diagnosis?: No Procedures Date of Service Date of Service: 11/25/20
[2020-11-25 10:54] LABS: Vancomycin Trough 11.3 mcg/mL (10.0-20.0)
--- NOTE | 2020-11-25 11:09 | PM.IMPN ---
Subjective Subjective Date of Service: 11/25/20 <Meeta Patel NP - Last Filed: 11/25/20 11:15> 12/02/20 <Jacques Coronado MD - Last Filed: 12/02/20 16:12> Interval History: Follow up bacteremia endocarditis more alert today <Meeta Patel NP - Last Filed: 11/25/20 11:15> Physical Exam Vital Signs: Vital Signs: Last Vital Signs Temp 98.9 F 11/25/20 10:44 Pulse 117 H 11/25/20 10:44 Resp 22 H 11/25/20 10:44 BP 122/83 11/25/20 10:44 Pulse Ox 100 11/25/20 10:44 Body Mass Index 20.9 <Meeta Patel NP - Last Filed: 11/25/20 11:15> Appearing in no acute distress lung sounds are clear to auscultation heart regular rate rhythm, tachycardia positive bowel sounds, abdomen is soft, nontender neuro patient is alert x3, no focal deficits <Meeta Patel NP - Last Filed: 11/25/20 11:15> Objective Data Current Medications Generic Name Dose Route Start Last Admin Trade Name Lewq PRN Reason Stop Dose Admin Acetaminophen 650 mg 11/22/20 00:08 11/25/20 04:57 Acetaminophen 325 Mg Tablet PO 650 mg Q6H PRN Administration Pain, Mild (Pain Scale 1-3) Clonidine HCl 0.1 mg 11/22/20 00:10 11/24/20 07:22 Clonidine Hcl 0.1 Mg Tablet PO 0.1 mg BID PRN Administration anxiety/restlessness Protocol Furosemide 20 mg 11/25/20 09:00 11/25/20 08:06 Furosemide 20 Mg/2 Ml Vial IVPUSH 20 mg BID@0900,1800 SOHEILA Administration Protocol Vancomycin HCl 1,500 mg/ 500 mls @ 333.333 mls/hr 11/25/20 11:00 Sodium Chloride IV Q12H SOHEILA Lidocaine 2 patch 11/24/20 10:00 11/25/20 08:10 Lidocaine 4 % Patch Adh..Patch TRANSDERMA 2 patch DAILY SOHEILA Administration Protocol Lorazepam 0.5 mg 11/23/20 08:10 11/24/20 13:17 Lorazepam 0.5 Mg Tablet PO 0.5 mg Q6H PRN Administration Anxiety Magnesium Hydroxide 30 ml 11/22/20 00:08 Milk Of Magnesia 30 Ml Oral.Susp PO DAILY PRN Constipation Melatonin 6 mg 11/22/20 00:08 11/23/20 21:10 Melatonin 3 Mg Tablet PO 6 mg BEDTIME PRN Administration Insomnia Nicotine 21 mg 11/22/20 01:45 11/25/20 08:08 Nicotine 21 Mg Patch.Td24 TRANSDERMA 21 mg DAILY SOHEILA Administration Oxycodone HCl 20 mg 11/23/20 18:33 11/25/20 04:56 Oxycodone Hcl Immed Release 5 Mg Tablet PO 20 mg Q4H PRN Administration withdrawal Pharmacy Consult 1 each 11/21/20 20:51 Consult Rx Vancomycin Dosing MISCELLANE DAILY PRN Consult order Sodium Chloride 3 ml 11/22/20 08:00 11/25/20 09:12 0.9 % Sodium Chloride Flush 3 Ml Syringe IVFLUSH 3 ml QSHIFT SOHEILA Administration <Meeta Patel NP - Last Filed: 11/25/20 11:15> Labs CBC & Chem 7: : 11/28/20 14:58 11/28/20 05:22 <Meeta Patel [employer] PRESS OPERATOR - Last Filed: 11/25/20 11:15> Labs: Laboratory Results - last 24 hr 11/24/20 11/24/20 11/24/20 15:30 16:10 16:10 MCV MCH MCHC RDW Plt Count MPV Absolute Nucleated RBC Nucleated RBC % (auto) PT INR O2 Saturation 96.0 ABG pH at Pt Temp 7.55 H ABG pH (Temp Correct) 7.55 H ABG pCO2 at Pt Temp 23 L ABG pCO2 (Temp Corrct 23 L ABG pO2 at Pt Temp 80 L ABG pO2 (Temp Correct 78 L ABG HCO3 20 L ABG Base Excess (Actual) -0.3 Anion Gap Estim Creat Clear Calc Estimated GFR Random Glucose Lactic Acid 1.0 Calcium Total Bilirubin Direct Bilirubin AST ALT Alkaline Phosphatase B-Natriuretic Peptide 73 Total Protein Albumin Vancomycin Trough 11/24/20 11/25/20 11/25/20 21:03 05:27 05:27 MCV MCH MCHC RDW Plt Count MPV Absolute Nucleated RBC Nucleated RBC % (auto) PT INR O2 Saturation ABG pH at Pt Temp ABG pH (Temp Correct) ABG pCO2 at Pt Temp ABG pCO2 (Temp Corrct ABG pO2 at Pt Temp ABG pO2 (Temp Correct ABG HCO3 ABG Base Excess (Actual) Anion Gap 15 Estim Creat Clear Calc 129.1 Estimated GFR > 60 Random Glucose 102 D Lactic Acid Calcium 7.1 L Total Bilirubin 2.2 H Direct Bilirubin 1.6 H AST 46 H D ALT 17 Alkaline Phosphatase 266 H D B-Natriuretic Peptide Total Protein 5.2 L Albumin 1.7 L D Vancomycin Trough 11.9 11/25/20 11/25/20 11/25/20 05:27 08:01 10:14 MCV 80.7 MCH 29.1 MCHC 36.0 RDW 14.3 Plt Count 155 L MPV 10.7 Absolute Nucleated RBC 0.020 H Nucleated RBC % (auto) 0.0 PT 15.3 H INR 1.3 H O2 Saturation ABG pH at Pt Temp ABG pH (Temp Correct) ABG pCO2 at Pt Temp ABG pCO2 (Temp Corrct ABG pO2 at Pt Temp ABG pO2 (Temp Correct ABG HCO3 ABG Base Excess (Actual) Anion Gap Estim Creat Clear Calc Estimated GFR Random Glucose Lactic Acid Calcium Total Bilirubin Direct Bilirubin AST ALT Alkaline Phosphatase B-Natriuretic Peptide Total Protein Albumin Vancomycin Trough 11.3 <Meeta Patel NP - Last Filed: 11/25/20 11:15> Microbiology Microbiology Results: Microbiology 11/24/20 05:28 Blood - Venous Blood Culture - Preliminary 11/24/20 05:18 Blood - Venous Blood Culture - Preliminary 11/21/20 21:14 Blood - Venous Blood Culture - Final Methicillin Res Staph Aureus 11/21/20 21:14 Blood - Venous Blood Culture - Final Methicillin Res Staph Aureus 11/21/20 23:53 Urine clean catch - Clean Catch Midstream Urine Culture - Final No growth. <Meeta Patle NP - Last Filed: 11/25/20 11:15> Progress Note: A&P (1) Infective endocarditis: Status: Acute <Meeta Patel NP - Last Filed: 11/25/20 11:15> (2) Acute septic pulmonary embolus: Status: Acute <Meeta Patel NP - Last Filed: 11/25/20 11:15> Assessment and Plan: 45-year-old male with a past medical history of IV drug abuse/IV heroin use presented to the hospital with chief complaint of generalized body aches/dry cough. Noted to have significantly elevated white count with bandemia and low-grade temperatures; admitted for further management. Pulmonary edema. 7 liters positive IV lasix Caro catheter BNP 73 ABG 7.55/23/80/20 Discussed case with technical service specialist, no ICU level of care at this time Septic emboli. History of heroin abuse No PE on CTA Gram pos cocci, continue Vancomycin, staph aureus, MRSA more lethargic and tachypneic today MRI showed no acute changes Repeat CXR showed increasing cavitary nodules and larger denser areas of airspace disease Echo showed 2.95 x 1.5 cm vegetation attached to the tricuspid valve. TTE today ID following Repeat cx, will need PICC line and placement for abx course Sepsis. On admission, tachycardia, leukocytosis, normal lactic acid worsening leukocytosis 40.1, tachypnea and tachycardia. MRSA pos IV heroin abuse declined Suboxone Will monitor on COWS protocol. Addiction Medicine consult. hold clonidine due to hypotension oxycodone for withdrawal symptoms Normocytic anemia. No signs of bleeding follow CBC Mild hyponatremia. Resolved. Likely from hypovolema IV fluids DVT prophylaxis Lovenox Code status: Full code Attending Dr. Coronado <Meeta Patel NP - Last Filed: 11/25/20 11:15> Quality Stroke Does the patient have a stroke diagnosis?: No <Meeta Patel NP - Last Filed: 11/25/20 11:15> VTE Prior VTE?: No <Meeta Patel NP - Last Filed: 11/25/20 11:15> VTE Risk Level:: Medical - moderate - high <Meeta Patel NP - Last Filed: 11/25/20 11:15> VTE Device Contraindication: N/A - Device Ordered <Meeta Patel NP - Last Filed: 11/25/20 11:15> VTE Drug Contraindication: Treatment Not Indicated <Meeta Patel NP - Last Filed: 11/25/20 11:15>
--- NOTE | 2020-11-25 11:48 | P.CONAN_ITS ---
[facility] Active Problems Active Problems: All Active Problems (Updated 11/24/20 @ 22:13 by Bob perez MD) Infective endocarditis (Acute) Acute septic pulmonary embolus (Acute) Sepsis (Acute) Past Medical History Medical History Substance abuse Social History Social History Household Members: None Housing: Homeless Do you presently have visiting nurse or other home services: No Patient Tobacco Use Status: Former Tobacco user Tobacco use type: Cigarette Smoked in Last 30 Days: No e-Cigarette/Vaping Use: Former Use Patient Interested in Nicotine Replacement: Yes Patient Given Instructions on How to Stop Smoking: Yes Date Education Initiated: 11/22/20 Use of substances other than those prescribed or required for medical reasons: Yes Substance Use Type: Crack/Cocaine and Heroin Substance Use Frequency: Daily Last Used Substance: Days (ago) Last Used Substance Other:: 11/21/20 Currently Displaying Signs/Symptoms of Drug Intoxication Withdrawal: No Have you been hit, kicked, punched, or otherwise hurt by someone within the past year? If so, by whom?: No Do you feel safe in your current relationship?: No Current Relationship Is there a partner from a previous relationship who is making you feel unsafe now?: No Are you made to feel afraid or neglected: No Are you DNR?: No Advance Directives: No Advance Directives on File: No Do you have thoughts of harming others: None Do you have a plan to hurt others: No Plan Recently lost weight without trying: Yes How much weight loss: Unsure Eating poorly because of decreased appetite: No Nutrition screen score: 4 Nutrition Risks: No Nutritional Risk Poor oral hygiene: No (no top teeth) service: No Current occupational status: unemployed Meds Allergies Allergy/AdvReac Type Severity Reaction Status Date / Time No Known Allergies Allergy Verified 11/18/20 13:31 Active Medications: Current Medications Generic Name Dose Route Start Last Admin Trade Name Freq PRN Reason Stop Dose Admin Acetaminophen 650 mg 11/22/20 00:08 11/25/20 04:57 Acetaminophen 325 Mg Tablet PO 650 mg Q6H PRN Administration Pain, Mild (Pain Scale 1-3) Clonidine HCl 0.1 mg 11/22/20 00:10 11/24/20 07:22 Clonidine Hcl 0.1 Mg Tablet PO 0.1 mg BID PRN Administration anxiety/restlessness Protocol Furosemide 20 mg 11/25/20 09:00 11/25/20 08:06 Furosemide 20 Mg/2 Ml Vial IVPUSH 20 mg BID@0900,1800 SOHEILA Administration Protocol Vancomycin HCl 1,500 mg/ 500 mls @ 333.333 mls/hr 11/25/20 11:00 Sodium Chloride IV Q12H SOHEILA Lidocaine 2 patch 11/24/20 10:00 11/25/20 08:10 Lidocaine 4 % Patch Adh..Patch TRANSDERMA 2 patch DAILY SOHEILA Administration Protocol Lorazepam 0.5 mg 11/23/20 08:10 11/24/20 13:17 Lorazepam 0.5 Mg Tablet PO 0.5 mg Q6H PRN Administration Anxiety Magnesium Hydroxide 30 ml 11/22/20 00:08 Milk Of Magnesia 30 Ml Oral.Susp PO DAILY PRN Constipation Melatonin 6 mg 11/22/20 00:08 11/23/20 21:10 Melatonin 3 Mg Tablet PO 6 mg BEDTIME PRN Administration Insomnia Nicotine 21 mg 11/22/20 01:45 11/25/20 08:08 Nicotine 21 Mg Patch.Td24 TRANSDERMA 21 mg DAILY SOHEILA Administration Oxycodone HCl 20 mg 11/23/20 18:33 11/25/20 04:56 Oxycodone Hcl Immed Release 5 Mg Tablet PO 20 mg Q4H PRN Administration withdrawal Pharmacy Consult 1 each 11/21/20 20:51 Consult Rx Vancomycin Dosing MISCELLANE DAILY PRN Consult order Sodium Chloride 3 ml 11/22/20 08:00 11/25/20 09:12 0.9 % Sodium Chloride Flush 3 Ml Syringe IVFLUSH 3 ml QSHIFT SOHEILA Administration Home Medications Medication Instructions Recorded Confirmed Last Taken Type No Known Home Meds 11/21/20 11/21/20 Unknown History Exam Exam Date and Time: November 25, 2020 1148 Height,Weight and Vital Signs: Height 5 ft 7 in Weight 133 lb 13.129 oz Last Vital Signs Temp 98.9 F 11/25/20 10:44 Pulse 117 H 11/25/20 10:44 Resp 22 H 11/25/20 10:44 BP 122/83 11/25/20 10:44 Pulse Ox 100 11/25/20 10:44 Pertinent Lab Results Pertinent Lab Results: Laboratory Tests 11/21/20 11/21/20 11/21/20 20:29 20:29 20:29 WBC 30.5 H* RBC 3.47 L Hgb 10.3 L Hct 27.8 L MCV 80.1 MCH 29.7 MCHC 37.1 H RDW 12.9 Plt Count 140 L MPV 11.1 Immature Gran % (Auto) Cancelled Neut % (Auto) Cancelled Lymph % (Auto) Cancelled Bailey % (Auto) Cancelled Eos % (Auto) Cancelled Baso % (Auto) Cancelled Lymph # (Auto) Cancelled Bailey # (Auto) Cancelled Eos # (Auto) Cancelled Baso # (Auto) Cancelled Abs Immat Gran (auto) Cancelled Absolute Neuts (auto) Cancelled Absolute Nucleated RBC 0.000 Nucleated RBC % (auto) 0.0 Neutrophils % (Manual) 65 Band Neutrophils % 27 H Lymphocytes % (Manual) 3 L Monocytes % (Manual) 2 Eosinophils % (Manual) 1 Metamyelocytes % 2 Abs Neuts (Manual) 28.1 H Lymphocytes # (Manual) 0.9 Monocytes # (Manual) 0.6 Eosinophils # (Manual) 0.3 Metamyelocytes # 0.6 Platelet Estimate NORMAL Plt Morphology Comment NORMAL RBC Morphology NORMAL Hypochromasia Target Cells Eh Cells Smear Path Review PT INR APTT O2 Saturation ABG pH at Pt Temp ABG pH (Temp Correct) ABG pCO2 at Pt Temp ABG pCO2 (Temp Corrct ABG pO2 at Pt Temp ABG pO2 (Temp Correct ABG HCO3 ABG Base Excess (Actual) Sodium 128 L Potassium 3.5 Chloride 92 L Carbon Dioxide 25 Anion Gap 15 BUN 40 H Creatinine 0.98 Estim Creat Clear Calc 80.7 Estimated GFR > 60 Random Glucose 131 H Lactic Acid Calcium 7.6 L Total Bilirubin 1.9 H Direct Bilirubin 1.5 H AST 27 ALT 23 Alkaline Phosphatase 116 C-Reactive Protein 23.14 H B-Natriuretic Peptide Total Protein 5.3 L Albumin 2.2 L Urine Color Urine Appearance Urine pH Ur Specific [place] Urine Protein Urine Glucose (UA) Urine Ketones Urine Blood Urine Nitrite Ur Leukocyte Esterase Urine RBC Urine WBC Ur Squamous Epith Cells Urine Bacteria Hyaline Casts Urine Mucus Vancomycin Trough COVID-19 (LISA) COVID-19 Clin Com Hepatitis C Ab (EIA) HIV 1&2 Ab/P24 Ag 4thGn 11/21/20 11/21/20 11/21/20 21:03 21:14 23:53 WBC RBC Hgb Hct MCV MCH MCHC RDW Plt Count MPV Immature Gran % (Auto) Neut % (Auto) Lymph % (Auto) Bailey % (Auto) Eos % (Auto) Baso % (Auto) Lymph # (Auto) Bailey # (Auto) Eos # (Auto) Baso # (Auto) Abs Immat Gran (auto) Absolute Neuts (auto) Absolute Nucleated RBC Nucleated RBC % (auto) Neutrophils % (Manual) Band Neutrophils % Lymphocytes % (Manual) Monocytes % (Manual) Eosinophils % (Manual) Metamyelocytes % Abs Neuts (Manual) Lymphocytes # (Manual) Monocytes # (Manual) Eosinophils # (Manual) Metamyelocytes # Platelet Estimate Plt Morphology Comment RBC Morphology Hypochromasia Target Cells [place] Cells Smear Path Review PT INR APTT O2 Saturation ABG pH at Pt Temp ABG pH (Temp Correct) ABG pCO2 at Pt Temp ABG pCO2 (Temp Corrct ABG pO2 at Pt Temp ABG pO2 (Temp Correct ABG HCO3 ABG Base Excess (Actual) Sodium Potassium Chloride Carbon Dioxide Anion Gap BUN Creatinine Estim Creat Clear Calc Estimated GFR Random Glucose Lactic Acid 1.5 Calcium Total Bilirubin Direct Bilirubin AST ALT Alkaline Phosphatase C-Reactive Protein B-Natriuretic Peptide Total Protein Albumin Urine Color DARK YELLOW Urine Appearance CLEAR Urine pH 6.0 Ur Specific [place] 1.010 Urine Protein TRACE Urine Glucose (UA) NEG Urine Ketones NEG Urine Blood 1+ H Urine Nitrite NEG Ur Leukocyte Esterase 1+ H Urine RBC 1-4 Urine WBC 5-9 H Ur Squamous Epith Cells 1+ Urine Bacteria TRACE Hyaline Casts 0-2 Urine Mucus 1+ Vancomycin Trough COVID-19 (LISA) Negative COVID-19 Clin Com See Note Hepatitis C Ab (EIA) HIV 1&2 Ab/P24 Ag 4thGn 11/22/20 11/22/20 11/22/20 05:18 05:18 23:01 WBC 28.5 H RBC 3.25 L Hgb 9.6 L Hct 26.1 L MCV 80.3 MCH 29.5 MCHC 36.8 H RDW 13.2 Plt Count 133 L MPV 11.5 Immature Gran % (Auto) Cancelled Neut % (Auto) Cancelled Lymph % (Auto) Cancelled Bailey % (Auto) Cancelled Eos % (Auto) Cancelled Baso % (Auto) Cancelled Lymph # (Auto) Cancelled Bailey # (Auto) Cancelled Eos # (Auto) Cancelled Baso # (Auto) Cancelled Abs Immat Gran (auto) Cancelled Absolute Neuts (auto) Cancelled Absolute Nucleated RBC 0.020 H Nucleated RBC % (auto) 0.1 Neutrophils % (Manual) 77 H Band Neutrophils % 15 H Lymphocytes % (Manual) 4 L Monocytes % (Manual) 3 Eosinophils % (Manual) 1 Metamyelocytes % Abs Neuts (Manual) 26.2 H Lymphocytes # (Manual) 1.1 Monocytes # (Manual) 0.9 Eosinophils # (Manual) 0.3 Metamyelocytes # Platelet Estimate SLIGHTLY DECREASED Plt Morphology Comment NORMAL RBC Morphology NOTED Hypochromasia 1+ (5-14) Target Cells 1+ (5-14) [place] Cells 2+ (3-5) Smear Path Review PT INR APTT O2 Saturation ABG pH at Pt Temp ABG pH (Temp Correct) ABG pCO2 at Pt Temp ABG pCO2 (Temp Corrct ABG pO2 at Pt Temp ABG pO2 (Temp Correct ABG HCO3 ABG Base Excess (Actual) Sodium 132 L Potassium 3.1 L Chloride 99 Carbon Dioxide 22 Anion Gap 14 BUN 32 H Creatinine 0.77 Estim Creat Clear Calc 104.0 Estimated GFR > 60 Random Glucose 107 Lactic Acid Calcium 7.1 L D Total Bilirubin Direct Bilirubin AST ALT Alkaline Phosphatase C-Reactive Protein B-Natriuretic Peptide Total Protein Albumin Urine Color Urine Appearance Urine pH Ur Specific [place] Urine Protein Urine Glucose (UA) Urine Ketones Urine Blood Urine Nitrite Ur Leukocyte Esterase Urine RBC Urine WBC Ur Squamous Epith Cells Urine Bacteria Hyaline Casts Urine Mucus Vancomycin Trough COVID-19 (LISA) COVID-19 Clin Com Hepatitis C Ab (EIA) HIV 1&2 Ab/P24 Ag 4thGn Nonreactive 11/22/20 11/23/20 11/23/20 23:01 08:49 08:49 WBC 37.0 H* RBC 3.59 L Hgb 10.4 L Hct 28.7 L MCV 79.9 L MCH 29.0 MCHC 36.2 H RDW 13.3 Plt Count 138 L MPV 10.2 Immature Gran % (Auto) Neut % (Auto) Lymph % (Auto) Bailey % (Auto) Eos % (Auto) Baso % (Auto) Lymph # (Auto) Bailey # (Auto) Eos # (Auto) Baso # (Auto) Abs Immat Gran (auto) Absolute Neuts (auto) Absolute Nucleated RBC 0.020 H Nucleated RBC % (auto) 0.1 Neutrophils % (Manual) Band Neutrophils % Lymphocytes % (Manual) Monocytes % (Manual) Eosinophils % (Manual) Metamyelocytes % Abs Neuts (Manual) Lymphocytes # (Manual) Monocytes # (Manual) Eosinophils # (Manual) Metamyelocytes # Platelet Estimate Plt Morphology Comment RBC Morphology Hypochromasia Target Cells He Cells Smear Path Review SEE NOTE PT INR APTT O2 Saturation ABG pH at Pt Temp ABG pH (Temp Correct) ABG pCO2 at Pt Temp ABG pCO2 (Temp Corrct ABG pO2 at Pt Temp ABG pO2 (Temp Correct ABG HCO3 ABG Base Excess (Actual) Sodium Potassium Chloride Carbon Dioxide Anion Gap BUN Creatinine Estim Creat Clear Calc Estimated GFR Random Glucose Lactic Acid Calcium Total Bilirubin Direct Bilirubin AST ALT Alkaline Phosphatase C-Reactive Protein B-Natriuretic Peptide Total Protein Albumin Urine Color Urine Appearance Urine pH Ur Specific [place] Urine Protein Urine Glucose (UA) Urine Ketones Urine Blood Urine Nitrite Ur Leukocyte Esterase Urine RBC Urine WBC Ur Squamous Epith Cells Urine Bacteria Hyaline Casts Urine Mucus Vancomycin Trough 11.1 COVID-19 (LISA) COVID-19 Clin Com Hepatitis C Ab (EIA) Reactive H HIV 1&2 Ab/P24 Ag 4thGn 11/23/20 11/24/20 11/24/20 08:49 05:18 05:18 WBC 41.5 H* RBC 3.30 L Hgb 9.6 L Hct 26.4 L MCV 80.0 MCH 29.1 MCHC 36.4 H RDW 13.6 Plt Count 160 MPV 10.5 Immature Gran % (Auto) Neut % (Auto) Lymph % (Auto) Bailey % (Auto) Eos % (Auto) Baso % (Auto) Lymph # (Auto) Bailey # (Auto) Eos # (Auto) Baso # (Auto) Abs Immat Gran (auto) Absolute Neuts (auto) Absolute Nucleated RBC 0.030 H Nucleated RBC % (auto) 0.1 Neutrophils % (Manual) Band Neutrophils % Lymphocytes % (Manual) Monocytes % (Manual) Eosinophils % (Manual) Metamyelocytes % Abs Neuts (Manual) Lymphocytes # (Manual) Monocytes # (Manual) Eosinophils # (Manual) Metamyelocytes # Platelet Estimate Plt Morphology Comment RBC Morphology Hypochromasia Target Cells [place] Cells Smear Path Review PT INR APTT O2 Saturation ABG pH at Pt Temp ABG pH (Temp Correct) ABG pCO2 at Pt Temp ABG pCO2 (Temp Corrct ABG pO2 at Pt Temp ABG pO2 (Temp Correct ABG HCO3 ABG Base Excess (Actual) Sodium 138 135 Potassium 3.5 3.5 Chloride 107 105 Carbon Dioxide 22 18 L Anion Gap 13 16 BUN 19 H 20 H Creatinine 0.62 0.62 Estim Creat Clear Calc 129.1 129.1 Estimated GFR > 60 > 60 Random Glucose 100 61 D Lactic Acid Calcium 7.4 L 7.1 L Total Bilirubin Direct Bilirubin AST ALT Alkaline Phosphatase C-Reactive Protein B-Natriuretic Peptide Total Protein Albumin Urine Color Urine Appearance Urine pH Ur Specific [place] Urine Protein Urine Glucose (UA) Urine Ketones Urine Blood Urine Nitrite Ur Leukocyte Esterase Urine RBC Urine WBC Ur Squamous Epith Cells Urine Bacteria Hyaline Casts Urine Mucus Vancomycin Trough COVID-19 (LISA) COVID-19 Clin Com Hepatitis C Ab (EIA) HIV 1&2 Ab/P24 Ag 4thGn 11/24/20 11/24/20 11/24/20 10:03 10:03 15:30 WBC 40.1 H* RBC 3.21 L Hgb 9.3 L Hct 25.5 L MCV 79.4 L MCH 29.0 MCHC 36.5 H RDW 13.6 Plt Count 158 L MPV 10.3 Immature Gran % (Auto) Neut % (Auto) Lymph % (Auto) Bailey % (Auto) Eos % (Auto) Baso % (Auto) Lymph # (Auto) Bailey # (Auto) Eos # (Auto) Baso # (Auto) Abs Immat Gran (auto) Absolute Neuts (auto) Absolute Nucleated RBC 0.000 Nucleated RBC % (auto) 0.0 Neutrophils % (Manual) Band Neutrophils % Lymphocytes % (Manual) Monocytes % (Manual) Eosinophils % (Manual) Metamyelocytes % Abs Neuts (Manual) Lymphocytes # (Manual) Monocytes # (Manual) Eosinophils # (Manual) Metamyelocytes # Platelet Estimate Plt Morphology Comment RBC Morphology Hypochromasia Target Cells [place] Cells Smear Path Review PT 15.8 H INR 1.4 H APTT 34.8 O2 Saturation 96.0 ABG pH at Pt Temp 7.55 H ABG pH (Temp Correct) 7.55 H ABG pCO2 at Pt Temp 23 L ABG pCO2 (Temp Corrct 23 L ABG pO2 at Pt Temp 80 L ABG pO2 (Temp Correct 78 L ABG HCO3 20 L ABG Base Excess (Actual) -0.3 Sodium Potassium Chloride Carbon Dioxide Anion Gap BUN Creatinine Estim Creat Clear Calc Estimated GFR Random Glucose Lactic Acid Calcium Total Bilirubin Direct Bilirubin AST ALT Alkaline Phosphatase C-Reactive Protein B-Natriuretic Peptide Total Protein Albumin Urine Color Urine Appearance Urine pH Ur Specific [place] Urine Protein Urine Glucose (UA) Urine Ketones Urine Blood Urine Nitrite Ur Leukocyte Esterase Urine RBC Urine WBC Ur Squamous Epith Cells Urine Bacteria Hyaline Casts Urine Mucus Vancomycin Trough COVID-19 (LISA) COVID-19 Clin Com Hepatitis C Ab (EIA) HIV 1&2 Ab/P24 Ag 4thGn 11/24/20 11/24/20 11/24/20 16:10 16:10 21:03 WBC RBC Hgb Hct MCV MCH MCHC RDW Plt Count MPV Immature Gran % (Auto) Neut % (Auto) Lymph % (Auto) Bailey % (Auto) Eos % (Auto) Baso % (Auto) Lymph # (Auto) Bailey # (Auto) Eos # (Auto) Baso # (Auto) Abs Immat Gran (auto) Absolute Neuts (auto) Absolute Nucleated RBC Nucleated RBC % (auto) Neutrophils % (Manual) Band Neutrophils % Lymphocytes % (Manual) Monocytes % (Manual) Eosinophils % (Manual) Metamyelocytes % Abs Neuts (Manual) Lymphocytes # (Manual) Monocytes # (Manual) Eosinophils # (Manual) Metamyelocytes # Platelet Estimate Plt Morphology Comment RBC Morphology Hypochromasia Target Cells [place] Cells Smear Path Review PT INR APTT O2 Saturation ABG pH at Pt Temp ABG pH (Temp Correct) ABG pCO2 at Pt Temp ABG pCO2 (Temp Corrct ABG pO2 at Pt Temp ABG pO2 (Temp Correct ABG HCO3 ABG Base Excess (Actual) Sodium Potassium Chloride Carbon Dioxide Anion Gap BUN Creatinine Estim Creat Clear Calc Estimated GFR Random Glucose Lactic Acid 1.0 Calcium Total Bilirubin Direct Bilirubin AST ALT Alkaline Phosphatase C-Reactive Protein B-Natriuretic Peptide 73 Total Protein Albumin Urine Color Urine Appearance Urine pH Ur Specific [place] Urine Protein Urine Glucose (UA) Urine Ketones Urine Blood Urine Nitrite Ur Leukocyte Esterase Urine RBC Urine WBC Ur Squamous Epith Cells Urine Bacteria Hyaline Casts Urine Mucus Vancomycin Trough 11.9 COVID-19 (LISA) COVID-19 Clin Com Hepatitis C Ab (EIA) HIV 1&2 Ab/P24 Ag 4thGn 11/25/20 11/25/20 11/25/20 05:27 05:27 05:27 WBC 41.2 H* RBC 2.96 L Hgb 8.6 L Hct 23.9 L MCV 80.7 MCH 29.1 MCHC 36.0 RDW 14.3 Plt Count 155 L MPV 10.7 Immature Gran % (Auto) Neut % (Auto) Lymph % (Auto) Bailey % (Auto) Eos % (Auto) Baso % (Auto) Lymph # (Auto) Bailey # (Auto) Eos # (Auto) Baso # (Auto) Abs Immat Gran (auto) Absolute Neuts (auto) Absolute Nucleated RBC 0.020 H Nucleated RBC % (auto) 0.0 Neutrophils % (Manual) Band Neutrophils % Lymphocytes % (Manual) Monocytes % (Manual) Eosinophils % (Manual) Metamyelocytes % Abs Neuts (Manual) Lymphocytes # (Manual) Monocytes # (Manual) Eosinophils # (Manual) Metamyelocytes # Platelet Estimate Plt Morphology Comment RBC Morphology Hypochromasia Target Cells Eh Cells Smear Path Review PT INR APTT O2 Saturation ABG pH at Pt Temp ABG pH (Temp Correct) ABG pCO2 at Pt Temp ABG pCO2 (Temp Corrct ABG pO2 at Pt Temp ABG pO2 (Temp Correct ABG HCO3 ABG Base Excess (Actual) Sodium 133 L Potassium 3.6 Chloride 106 Carbon Dioxide 16 L Anion Gap 15 BUN 23 H Creatinine 0.62 Estim Creat Clear Calc 129.1 Estimated GFR > 60 Random Glucose 102 D Lactic Acid Calcium 7.1 L Total Bilirubin 2.2 H Direct Bilirubin 1.6 H AST 46 H D ALT 17 Alkaline Phosphatase 266 H D C-Reactive Protein B-Natriuretic Peptide Total Protein 5.2 L Albumin 1.7 L D Urine Color Urine Appearance Urine pH Ur Specific [place] Urine Protein Urine Glucose (UA) Urine Ketones Urine Blood Urine Nitrite Ur Leukocyte Esterase Urine RBC Urine WBC Ur Squamous Epith Cells Urine Bacteria Hyaline Casts Urine Mucus Vancomycin Trough COVID-19 (LISA) COVID-19 Clin Com Hepatitis C Ab (EIA) HIV 1&2 Ab/P24 Ag 4thGn 11/25/20 11/25/20 08:01 10:14 WBC RBC Hgb Hct MCV MCH MCHC RDW Plt Count MPV Immature Gran % (Auto) Neut % (Auto) Lymph % (Auto) Bailey % (Auto) Eos % (Auto) Baso % (Auto) Lymph # (Auto) Bailey # (Auto) Eos # (Auto) Baso # (Auto) Abs Immat Gran (auto) Absolute Neuts (auto) Absolute Nucleated RBC Nucleated RBC % (auto) Neutrophils % (Manual) Band Neutrophils % Lymphocytes % (Manual) Monocytes % (Manual) Eosinophils % (Manual) Metamyelocytes % Abs Neuts (Manual) Lymphocytes # (Manual) Monocytes # (Manual) Eosinophils # (Manual) Metamyelocytes # Platelet Estimate Plt Morphology Comment RBC Morphology Hypochromasia Target Cells Eh Cells Smear Path Review PT 15.3 H INR 1.3 H APTT O2 Saturation ABG pH at Pt Temp ABG pH (Temp Correct) ABG pCO2 at Pt Temp ABG pCO2 (Temp Corrct ABG pO2 at Pt Temp ABG pO2 (Temp Correct ABG HCO3 ABG Base Excess (Actual) Sodium Potassium Chloride Carbon Dioxide Anion Gap BUN Creatinine Estim Creat Clear Calc Estimated GFR Random Glucose Lactic Acid Calcium Total Bilirubin Direct Bilirubin AST ALT Alkaline Phosphatase C-Reactive Protein B-Natriuretic Peptide Total Protein Albumin Urine Color Urine Appearance Urine pH Ur Specific [place] Urine Protein Urine Glucose (UA) Urine Ketones Urine Blood Urine Nitrite Ur Leukocyte Esterase Urine RBC Urine WBC Ur Squamous Epith Cells Urine Bacteria Hyaline Casts Urine Mucus Vancomycin Trough 11.3 COVID-19 (LISA) COVID-19 Clin Com Hepatitis C Ab (EIA) HIV 1&2 Ab/P24 Ag 4thGn Airway Mallampati Class: II TM Dist: >3cm Neck ROM: Full Adult Head Mouth w/Numbe Teeth: 1. Loose Loose/Missing/Broken Teeth: Yes Heart: Tachy Lungs: 3L NC Assessment and Plan Assessment Anesthesia Assessment: Anesthesia Plan Discussed and Chart Reviewed Final Anesthetic Review NPO: Yes ASA Class: IV and Emergency Final Preanesthetic Review: No Changes in Pt Med Stat, Meds/Allgs Chart Reviewed, Consent Obtained/Reviewed and Anes Risks/Benef Reviewed Patient Risk: High Procedure Risk: Low Anesthetic Plan Anesthetic Plan: MAC: Disposition: Standard PACU
--- NOTE | 2020-11-25 13:12 | PC.NURSE ---
faxed report awaiting called back from taylor morgan rn pt resting cpomfortably
--- NOTE | 2020-11-25 13:30 | CA_ITS ---
Transesophageal Echocardiogram Patient (Last, First, Middle): Porfirio Chiang, Gender: Male Date of : 1975 Age: 45 Procedure Date: 11/25/2020 Procedure Type: Transesophageal Echocardiogram Location: [facility] [place] Height: 167.64 cm Weight: kg Qa Consultant: Referring MD: Bob Cownay MD Symptoms: Infective endocarditis Conclusion: ??? Normal left ventricular cavity size. The left ventricular systolic function is normal. ??? Normal right ventricular cavity size and systolic function. ??? There is a normal trileaflet aortic valve. There is no aortic valve regurgitation. No vegetation. No evidence of aortic root abscess. ??? Normal mitral valve structure and function. There is trace mitral valve regurgitation. No vegetation ??? There is mild to moderate tricuspid valve regurgitation. 2.95 x 0.9 cm vegetation on tricuspid valve. ??? There is a small circumferential pericardial effusion. Findings Procedure Information Consent was obtained prior to the procedure. The probe was passed with minimal difficulty. This was a technically good study. Left Ventricle Normal left ventricular cavity size. The left ventricular systolic function is normal. Right Ventricle Normal right ventricular cavity size and systolic function. Aortic Valve There is a normal trileaflet aortic valve. There is no aortic valve regurgitation. No vegetation. No evidence of aortic root abscess. Mitral Valve Normal mitral valve structure and function. There is trace mitral valve regurgitation. No vegetation Pulmonic Valve The pulmonic valve is normal. Tricuspid Valve There is mild to moderate tricuspid valve regurgitation. 2.95 x 0.9 cm vegetation on tricuspid valve. Great Vessels All visible segments of the aorta are normal in size. Pericardium/Pleural There is a small circumferential pericardial effusion. Updated by Bob Conway on 09:16 PM with Status of Final oBb Conway MD electronically signed on 11/25/2020 9:16:42 PM with status of Final
--- NOTE | 2020-11-25 13:31 | MHC.SHP ---
Pre-Procedural Eval Section A Date of Service: 11/25/20 The patient is an INPATIENT: Yes Section B Chief Complaint: Endocarditis Details of Present Illness: Endocarditis Allergies: Allergies Allergy/AdvReac Type Severity Reaction Status Date / Time No Known Allergies Allergy Verified 11/18/20 13:31 Plan Diagnosis/Plan: Unchanged I have reviewed the history and physical and performed a pertinent physical examination on my patient. No changes have occurred unless specified.
[2020-11-25] MEDS: vancomycin HCL 1,500 MG in 0.9 % Sodium Chloride 500 ML 333.33 MG IV ×2 (14:32→23:45)
--- NOTE | 2020-11-25 14:54 | MHC.RECOVRN ---
T/w met with pt to f/u regarding withdrawal symptoms as well as desire for methadone. Pt denies withdrawal symptoms at this time, reports the oxycodone is working. Pts last dose, 20 mg, at 0500 today. Pt continues to be interested in an OTP. Pt reports having been at [facility] (now [facility] in [place]) 1-2 years ago and receiving 45 mg. Pt signed LISET for t/w to call [facility] to attempt to obtain ID. Will continue to follow. Discussed with Diann Sosa APRN.
--- NOTE | 2020-11-25 15:05 | HO.ADDICT_ITS ---
History of Present Illness Date of Service: 11/25/2020 Chief Complaint: Endocarditis Reason for Consult: Opioid use disorder Requesting physician: Meeta Patel Discussed with referring provider: Yes Sources of Information: patient interviewed and chart reviewed HPI Narrative: Patient is a 45-year-old male with opioid use disorder, currently medically admitted with endocarditis and septic emboli. Consult requested to evaluate and possibly treat opioid use disorder. Patient seen earlier in the day with recovery support RN, he was awake, alert, pleasant and engaged in interview. Patient very soft-spoken, but willing to discuss substance use. Patient reports he has been using between 10-15 bundles of heroin a day both intranasal and intravenous. Also reports using cocaine. Reports history of methadone, several years ago. Does not want Suboxone. Ddenies withdrawl sx, aside from generalized body aches, which he states are not too bad. Review of Systems Constitutional: Reports as per HPI, Reports fatigue, Reports lethargy and Reports malaise Gastrointestinal: Denies nausea and Denies vomiting Psychiatric: Denies anxiety Endocrine: Reports fatigue Diagnostics Vital Signs (24Hr): Vital Signs - 24 hr 11/24/20 15:50 11/24/20 18:58 11/24/20 20:47 Temperature 97.7 F 98.0 F 102.6 F H Pulse Rate 130 H 140 H Respiratory Rate 20 40 H Blood Pressure 132/82 Pulse Oximetry 94 11/24/20 22:34 11/24/20 23:17 11/25/20 03:15 Temperature 100.7 F H 97.8 F 98.9 F Pulse Rate 125 H 121 H Respiratory Rate 22 H 20 Blood Pressure 110/69 120/77 Pulse Oximetry 96 95 11/25/20 05:00 11/25/20 06:21 11/25/20 07:12 Temperature 101 F H 100.1 F 99.9 F Pulse Rate 120 H Respiratory Rate 22 H Blood Pressure 114/71 Pulse Oximetry 93 11/25/20 10:44 11/25/20 12:36 11/25/20 12:50 Temperature 98.9 F 98.4 F 98.4 F Pulse Rate 117 H 117 H 118 H Respiratory Rate 22 H 28 H 24 H Blood Pressure 122/83 91/52 L 106/66 Pulse Oximetry 100 98 100 11/25/20 13:13 11/25/20 13:43 Temperature 98.3 F 99.2 F Pulse Rate 116 H 120 H Respiratory Rate 22 H 24 H Blood Pressure 106/66 126/78 Pulse Oximetry 100 97 Body Mass Index 20.9 Labs Results: 11/25/20 05:27 11/25/20 05:27 Labs: Laboratory Results - last 48 hr 11/22/20 11/22/20 11/23/20 23:01 23:01 08:49 WBC RBC Hgb Hct MCV MCH MCHC RDW Plt Count MPV Absolute Nucleated RBC Nucleated RBC % (auto) Smear Path Review SEE NOTE PT INR APTT O2 Saturation ABG pH at Pt Temp ABG pH (Temp Correct) ABG pCO2 at Pt Temp ABG pCO2 (Temp Corrct ABG pO2 at Pt Temp ABG pO2 (Temp Correct ABG HCO3 ABG Base Excess (Actual) Sodium Potassium Chloride Carbon Dioxide Anion Gap BUN Creatinine Estim Creat Clear Calc Estimated GFR Random Glucose Lactic Acid Calcium Total Bilirubin Direct Bilirubin AST ALT Alkaline Phosphatase B-Natriuretic Peptide Total Protein Albumin Vancomycin Trough Hepatitis C Ab (EIA) Reactive H HIV 1&2 Ab/P24 Ag 4thGn Nonreactive 11/24/20 11/24/20 11/24/20 05:18 05:18 10:03 WBC 41.5 H* 40.1 H* RBC 3.30 L 3.21 L Hgb 9.6 L 9.3 L Hct 26.4 L 25.5 L MCV 80.0 79.4 L MCH 29.1 29.0 MCHC 36.4 H 36.5 H RDW 13.6 13.6 Plt Count 160 158 L MPV 10.5 10.3 Absolute Nucleated RBC 0.030 H 0.000 Nucleated RBC % (auto) 0.1 0.0 Smear Path Review PT INR APTT O2 Saturation ABG pH at Pt Temp ABG pH (Temp Correct) ABG pCO2 at Pt Temp ABG pCO2 (Temp Corrct ABG pO2 at Pt Temp ABG pO2 (Temp Correct ABG HCO3 ABG Base Excess (Actual) Sodium 135 Potassium 3.5 Chloride 105 Carbon Dioxide 18 L Anion Gap 16 BUN 20 H Creatinine 0.62 Estim Creat Clear Calc 129.1 Estimated GFR > 60 Random Glucose 61 D Lactic Acid Calcium 7.1 L Total Bilirubin Direct Bilirubin AST ALT Alkaline Phosphatase B-Natriuretic Peptide Total Protein Albumin Vancomycin Trough Hepatitis C Ab (EIA) HIV 1&2 Ab/P24 Ag 4thGn 11/24/20 11/24/20 11/24/20 10:03 15:30 16:10 WBC RBC Hgb Hct MCV MCH MCHC RDW Plt Count MPV Absolute Nucleated RBC Nucleated RBC % (auto) Smear Path Review PT 15.8 H INR 1.4 H APTT 34.8 O2 Saturation 96.0 ABG pH at Pt Temp 7.55 H ABG pH (Temp Correct) 7.55 H ABG pCO2 at Pt Temp 23 L ABG pCO2 (Temp Corrct 23 L ABG pO2 at Pt Temp 80 L ABG pO2 (Temp Correct 78 L ABG HCO3 20 L ABG Base Excess (Actual) -0.3 Sodium Potassium Chloride Carbon Dioxide Anion Gap BUN Creatinine Estim Creat Clear Calc Estimated GFR Random Glucose Lactic Acid Calcium Total Bilirubin Direct Bilirubin AST ALT Alkaline Phosphatase B-Natriuretic Peptide 73 Total Protein Albumin Vancomycin Trough Hepatitis C Ab (EIA) HIV 1&2 Ab/P24 Ag 4thGn 11/24/20 11/24/20 11/25/20 16:10 21:03 05:27 WBC RBC Hgb Hct MCV MCH MCHC RDW Plt Count MPV Absolute Nucleated RBC Nucleated RBC % (auto) Smear Path Review PT INR APTT O2 Saturation ABG pH at Pt Temp ABG pH (Temp Correct) ABG pCO2 at Pt Temp ABG pCO2 (Temp Corrct ABG pO2 at Pt Temp ABG pO2 (Temp Correct ABG HCO3 ABG Base Excess (Actual) Sodium 133 L Potassium 3.6 Chloride 106 Carbon Dioxide 16 L Anion Gap 15 BUN 23 H Creatinine 0.62 Estim Creat Clear Calc 129.1 Estimated GFR > 60 Random Glucose 102 D Lactic Acid 1.0 Calcium 7.1 L Total Bilirubin Direct Bilirubin AST ALT Alkaline Phosphatase B-Natriuretic Peptide Total Protein Albumin Vancomycin Trough 11.9 Hepatitis C Ab (EIA) HIV 1&2 Ab/P24 Ag 4thGn 11/25/20 11/25/20 11/25/20 05:27 05:27 08:01 WBC 41.2 H* RBC 2.96 L Hgb 8.6 L Hct 23.9 L MCV 80.7 MCH 29.1 MCHC 36.0 RDW 14.3 Plt Count 155 L MPV 10.7 Absolute Nucleated RBC 0.020 H Nucleated RBC % (auto) 0.0 Smear Path Review PT 15.3 H INR 1.3 H APTT O2 Saturation ABG pH at Pt Temp ABG pH (Temp Correct) ABG pCO2 at Pt Temp ABG pCO2 (Temp Corrct ABG pO2 at Pt Temp ABG pO2 (Temp Correct ABG HCO3 ABG Base Excess (Actual) Sodium Potassium Chloride Carbon Dioxide Anion Gap BUN Creatinine Estim Creat Clear Calc Estimated GFR Random Glucose Lactic Acid Calcium Total Bilirubin 2.2 H Direct Bilirubin 1.6 H AST 46 H D ALT 17 Alkaline Phosphatase 266 H D B-Natriuretic Peptide Total Protein 5.2 L Albumin 1.7 L D Vancomycin Trough Hepatitis C Ab (EIA) HIV 1&2 Ab/P24 Ag 4thGn 11/25/20 10:14 WBC RBC Hgb Hct MCV MCH MCHC RDW Plt Count MPV Absolute Nucleated RBC Nucleated RBC % (auto) Smear Path Review PT INR APTT O2 Saturation ABG pH at Pt Temp ABG pH (Temp Correct) ABG pCO2 at Pt Temp ABG pCO2 (Temp Corrct ABG pO2 at Pt Temp ABG pO2 (Temp Correct ABG HCO3 ABG Base Excess (Actual) Sodium Potassium Chloride Carbon Dioxide Anion Gap BUN Creatinine Estim Creat Clear Calc Estimated GFR Random Glucose Lactic Acid Calcium Total Bilirubin Direct Bilirubin AST ALT Alkaline Phosphatase B-Natriuretic Peptide Total Protein Albumin Vancomycin Trough 11.3 Hepatitis C Ab (EIA) HIV 1&2 Ab/P24 Ag 4thGn Imaging Radiology Impressions: ITS Impressions Chest X-Ray 11/21/20 20:50 IMPRESSION: Interval increase in bilateral nodular opacities with small left pleural effusion. These findings are nonspecific, but given the short interval, septic emboli cannot be excluded. A CT scan of the chest should be considered. Chest CTA 11/22/20 00:19 IMPRESSION: 1. No pulmonary embolism. 2. Cavitating nodules are seen throughout both lungs, consistent with septic emboli. Small pleural effusions with bibasilar consolidation. VTE: negative Brain MRI 11/24/20 12:11 IMPRESSION: No acute infarct, mass lesion, intracranial hemorrhage, or evidence of hydrocephalus. Chest X-Ray 11/24/20 14:50 IMPRESSION: Increasing cavitary nodules and larger denser areas of airspace disease in the right lateral midlung and left lower lobe and increasing left pleural effusion compared to previous exams. Mental Status Exam Mental Status Exam Patient Appearance: Appropriate Patient Orientation: Person, Place, Time and Situation Level of Consciousness: Awake, Appropriate and Alert Patient Behavior: Appropriate Mood Description: Appropriate Affect Description: Appropriate Patient Cognition Impaired: No Ability to Follow Directions: Excellent Speech Pattern: Soft-Spoken Hallucinations: None Delusions: Not Present Thought Process: Intact Thought Content: positive for Intact Judgement: Good Medications Medications Current Medications Generic Name Dose Route Start Last Admin Trade Name Lewq PRN Reason Stop Dose Admin Acetaminophen 650 mg 11/22/20 00:08 11/25/20 04:57 Acetaminophen 325 Mg Tablet PO 650 mg Q6H PRN Administration Pain, Mild (Pain Scale 1-3) Clonidine HCl 0.1 mg 11/22/20 00:10 11/24/20 07:22 Clonidine Hcl 0.1 Mg Tablet PO 0.1 mg BID PRN Administration anxiety/restlessness Protocol Furosemide 20 mg 11/25/20 09:00 11/25/20 08:06 Furosemide 20 Mg/2 Ml Vial IVPUSH 20 mg BID@0900,1800 SOHEILA Administration Protocol Vancomycin HCl 1,500 mg/ 500 mls @ 333.333 mls/hr 11/25/20 11:00 11/25/20 1 4:32 Sodium Chloride IV 333.33 mls/hr Q12H SOHEILA Administration Lidocaine 2 patch 11/24/20 10:00 11/25/20 08:10 Lidocaine 4 % Patch Adh..Patch TRANSDERMA 2 patch DAILY SOHEILA Administration Protocol Lorazepam 0.5 mg 11/23/20 08:10 11/24/20 13:17 Lorazepam 0.5 Mg Tablet PO 0.5 mg Q6H PRN Administration Anxiety Magnesium Hydroxide 30 ml 11/22/20 00:08 Milk Of Magnesia 30 Ml Oral.Susp PO DAILY PRN Constipation Melatonin 6 mg 11/22/20 00:08 11/23/20 21:10 Melatonin 3 Mg Tablet PO 6 mg BEDTIME PRN Administration Insomnia Nicotine 21 mg 11/22/20 01:45 11/25/20 08:08 Nicotine 21 Mg Patch.Td24 TRANSDERMA 21 mg DAILY SOHEILA Administration Oxycodone HCl 20 mg 11/23/20 18:33 11/25/20 04:56 Oxycodone Hcl Immed Release 5 Mg Tablet PO 20 mg Q4H PRN Administration withdrawal Pharmacy Consult 1 each 11/21/20 20:51 Consult Rx Vancomycin Dosing MISCELLANE DAILY PRN Consult order Sodium Chloride 3 ml 11/22/20 08:00 11/25/20 09:12 0.9 % Sodium Chloride Flush 3 Ml Syringe IVFLUSH 3 ml QSHIFT SOHEILA Administration Allergies Allergies Allergy/AdvReac Type Severity Reaction Status Date / Time No Known Allergies Allergy Verified 11/18/20 13:31 Assessment & Plan Assessment & Plan (1) Opioid use disorder: Status: Acute Code(s): F11.99 - Opioid use, unspecified with unspecified opioid-induced disorder Recommendations: * Denies any withdrawal symptoms at this time, reports that his symptoms are being adequately managed with p.r.n. oxycodone. * Discussed treatment options, patient insistent on methadone only. Need baseline EKG * Discussed and coordinated care with recovery support RN, patient needs to obtain photo ID in order to be accepted at any community opioid treatment program. Recovery support RN to follow up on this and coordinate with Community programming. * Discussed case with hospitalist, unclear if patient will remain here or be transferred out. * Continue to monitor for opioid withdrawal symptoms. * Will follow-up in the morning and determine if appropriate to start methadone 45 minutes spent in total with patient and coordinating care Greater than 50% of the session was spent on counseling and/or coordination of care PMFSH Past Medical History Medical History Substance abuse Social History Social History Household Members: None Housing: Homeless Do you presently have visiting nurse or other home services: No Patient Tobacco Use Status: Former Tobacco user Tobacco use type: Cigarette Smoked in Last 30 Days: No e-Cigarette/Vaping Use: Former Use Patient Interested in Nicotine Replacement: Yes Patient Given Instructions on How to Stop Smoking: Yes Date Education Initiated: 11/22/20 Use of substances other than those prescribed or required for medical reasons: Yes Substance Use Type: Crack/Cocaine and Heroin Substance Use Frequency: Daily Last Used Substance: Days (ago) Last Used Substance Other:: 11/21/20 Currently Displaying Signs/Symptoms of Drug Intoxication Withdrawal: No Have you been hit, kicked, punched, or otherwise hurt by someone within the past year? If so, by whom?: No Do you feel safe in your current relationship?: No Current Relationship Is there a partner from a previous relationship who is making you feel unsafe now?: No Are you made to feel afraid or neglected: No Are you DNR?: No Advance Directives: No Advance Directives on File: No Do you have thoughts of harming others: None Do you have a plan to hurt others: No Plan Recently lost weight without trying: Yes How much weight loss: Unsure Eating poorly because of decreased appetite: No Nutrition screen score: 4 Nutrition Risks: No Nutritional Risk Poor oral hygiene: No (no top teeth) service: No Current occupational status: unemployed
[2020-11-26] VITALS (10 sets, daily range): BP systolic 112–138; BP diastolic 68–80; PULSE 111–137; RESP 15–22; TEMP 36.8–39; O2SAT 88–95
--- NOTE | 2020-11-26 00:19 | ECG_ITS ---
Test Reason : CP Blood Pressure : / mmHG Vent. Rate : 132 BPM Atrial Rate : 132 BPM P-R Int : 126 ms QRS Dur : 086 ms QT Int : 294 ms P-R-T Axes : 069 067 034 degrees QTc Int : 435 ms Sinus tachycardia Possible Left atrial enlargement Borderline ECG When compared with ECG of 26-NOV-2020 00:18, No significant change was found Referred By: Jacques Coronado Electronically Signed By:Bob Conway
[2020-11-26] MEDS: Acetaminophen 325 MG TABLET 650 MG PO ×3 (03:30→20:59)
[2020-11-26] MEDS: cloNIDine HCL 0.1 MG TABLET PO (03:30)
[2020-11-26] MEDS: oxyCODONE HCl Immed Release 5 MG TABLET 20 MG PO ×2 (07:16→12:29)
[2020-11-26] MEDS: Nicotine 21 MG PATCH.TD24 TRANSDERMA (07:16)
[2020-11-26] MEDS: 0.9 % Sodium Chloride Flush 3 ML SYRINGE IVFLUSH ×2 (07:17→12:33)
[2020-11-26] MEDS: Furosemide 20 MG/2 ML VIAL IVPUSH ×2 (07:17→20:59)
[2020-11-26] MEDS: Lidocaine 4 % Patch ADH..PATCH 2 PATCH TRANSDERMA (07:17)
[2020-11-26 08:20] LABS: Hematocrit 24.5 % (42-52); Hemoglobin 8.7 g/dl (14.0-18.0); Mean Corpuscular HGB Conc 35.5 g/dl (31.0-36.0); Mean Corpuscular Hemoglobin 29.5 pg (27.0-33.0); Mean Corpuscular Volume 83.1 fL (80-98); Mean Platelet Volume 10.1 fL (9.4-12.4); Platelet Count 153 X10*3/uL (160-400); Red Blood Count 2.95 X10*6/uL (4.60-5.80); Red Cell Distribution Width 14.6 % (11.0-16.0)
[2020-11-26 08:28] LABS: White Blood Count 42.1 X10*3/uL (4.8-10.8)
[2020-11-26 08:57] LABS: Anion Gap 11 (12-20); Blood Urea Nitrogen 17 mg/dL (9-16); Calcium 6.9 mg/dL (8.4-10.2); Carbon Dioxide 23 mmol/L (22-29); Chloride 103 mmol/L (96-108); Creatinine Clr Calc Pharmacy 125.1; Estimated Glomerular Filt Rate > 60; Glucose Random 106 mg/dL (60-115); Potassium 3.4 mmol/L (3.3-5.1); Sodium 134 mmol/L (135-145)
--- NOTE | 2020-11-26 09:18 | MHC.RECOVRN ---
T/w called [facility] in [place] in an attempt to locate pts ID, left message with nursing. T/w spoke with pt who is c/o back pain, received oxycodone at 0716, pt denies effectiveness. Case discussed with pts RN as well as Diann Sosa APRN.
--- NOTE | 2020-11-26 12:13 | P.PNIM_ITS ---
Subjective Subjective Date of Service: 11/26/20 Interval History: seen and examined this AM he tells me he actually feels pretty good today having some generalized pain and malaise, but much improved ROS General - no fevers or chills Cardiovascular - no chest pain Respiratory - no shortness of breath or cough Abdominal- no abdominal pain, nausea, vomiting, diarrhea Physical Exam Vital Signs: Vital Signs: Last Vital Signs Temp 101.2 F H 11/26/20 11:17 Pulse 137 H 11/26/20 11:17 Resp 20 11/26/20 11:17 BP 134/80 11/26/20 11:17 Pulse Ox 88 L 11/26/20 11:17 Body Mass Index 20.9 Const: Other: General - ill appearing, but comfortable and much more awake and pleasant compared to yesterday Cardiovascular - tachy Lungs - dim with scattered trace rales Abdomen - soft, nontender, no rebound or guarding Extremities - no edema bilaterally Neuro - awake and alert, no focal deficits Objective Data Current Medications Generic Name Dose Route Start Last Admin Trade Name Cyndee PRN Reason Stop Dose Admin Acetaminophen 650 mg 11/22/20 00:08 11/26/20 03:30 Acetaminophen 325 Mg Tablet PO 650 mg Q6H PRN Administration Pain, Mild (Pain Scale 1-3) Clonidine HCl 0.1 mg 11/22/20 00:10 11/26/20 03:30 Clonidine Hcl 0.1 Mg Tablet PO 0.1 mg BID PRN Administration anxiety/restlessness Protocol Furosemide 20 mg 11/25/20 09:00 11/26/20 07:17 Furosemide 20 Mg/2 Ml Vial IVPUSH 20 mg BID@0900,1800 SOHEILA Administration Protocol Vancomycin HCl 1,500 mg/ 500 mls @ 333.333 mls/hr 11/25/20 11:00 11/26/20 01:35 Sodium Chloride IV Infused Q12H SOHEILA Infusion Lidocaine 2 patch 11/24/20 10:00 11/26/20 07:17 Lidocaine 4 % Patch Adh..Patch TRANSDERMA 2 patch DAILY SOHEILA Administration Protocol Lorazepam 0.5 mg 11/23/20 08:10 11/24/20 13:17 Lorazepam 0.5 Mg Tablet PO 0.5 mg Q6H PRN Administration Anxiety Magnesium Hydroxide 30 ml 11/22/20 00:08 Milk Of Magnesia 30 Ml Oral.Susp PO DAILY PRN Constipation Melatonin 6 mg 11/22/20 00:08 11/23/20 21:10 Melatonin 3 Mg Tablet PO 6 mg BEDTIME PRN Administration Insomnia Nicotine 21 mg 11/22/20 01:45 11/26/20 07:16 Nicotine 21 Mg Patch.Td24 TRANSDERMA 21 mg DAILY SOHEILA Administration Oxycodone HCl 20 mg 11/23/20 18:33 11/26/20 07:16 Oxycodone Hcl Immed Release 5 Mg Tablet PO 20 mg Q4H PRN Administration withdrawal Pharmacy Consult 1 each 11/21/20 20:51 Consult Rx Vancomycin Dosing MISCELLANE DAILY PRN Consult order Sodium Chloride 3 ml 11/22/20 08:00 11/26/20 07:17 0.9 % Sodium Chloride Flush 3 Ml Syringe IVFLUSH 3 ml QSHIFT SOHEILA Administration Labs CBC & Chem 7: 11/26/20 07:55 11/26/20 07:55 Labs: Laboratory Results - last 24 hr 11/26/20 11/26/20 11/26/20 07:55 07:55 07:55 WBC 42.1 H* RBC 2.95 L Hgb 8.7 L Hct 24.5 L MCV 83.1 MCH 29.5 MCHC 35.5 RDW 14.6 Plt Count 153 L MPV 10.1 Absolute Nucleated RBC 0.000 Nucleated RBC % (auto) 0.0 Sodium 134 L Potassium 3.4 Chloride 103 Carbon Dioxide 23 Anion Gap 11 L BUN 17 H Creatinine 0.64 TNP Estim Creat Clear Calc 125.1 TNP Estimated GFR > 60 TNP Random Glucose [address]cium 6[address] scan - chest: Radiologist's impression: Impressions Abdomen Ultrasound 11/26/20 09:39 IMPRESSION: 5 mm hyperechoic lesion high in the dome of the right lobe of the liver. This may represent a hemangioma. Small right pleural effusion. Small right renal cyst. Microbiology Microbiology Results: Microbiology 11/24/20 05:18 Blood Culture - Final Blood - Venous Methicillin Res Staph Aureus 11/24/20 05:28 Blood Culture - Final Blood - Venous Methicillin Res Staph Aureus Quality Stroke Does the patient have a stroke diagnosis?: No VTE Prior VTE?: No VTE Risk Level:: Medical - moderate - high VTE Device Contraindication: N/A - Device Ordered VTE Drug Contraindication: Treatment Not Indicated Assessment and Plan (1) Infective endocarditis: Status: Acute (2) Acute septic pulmonary embolus: Status: Acute Assessment and Plan: 45-year-old male with a past medical history of IV drug abuse/IV heroin use presented to the hospital with chief complaint of generalized body aches/dry cough. Noted to have significantly elevated white count with bandemia and low- grade temperatures; admitted for further management. MRSA Bacteremia / Septic Pulm Emboli / Endocarditis (tricuspid) Sepsis - present on admission cultures still positive - vancomcyin dosing being adjust per pharmacy ID on board -- may need to alter antibiotic regime Cardiology on board as well -- s/p RAYSA with left side valves appearing clean Fluid overload +6L balance since admission, likely from IVF for sepsis empiric iv lasix (-500 so far last 24 hours) Opiate abuse / dependence addiction medicine on board given methadone 10mg today Normocytic anemia. No signs of bleeding follow CBC Mild Hypona initially felt to be hypovoluemic, now ? SIADH observe Full Code DVT pptx, Lovenox
--- NOTE | 2020-11-26 12:35 | MHC.CM.PN ---
Per ROUNDS Discussion, Patient is not yet medically cleared for dc (cultures are pending). [facility] is the goal for dc and CM will follow for possible need to adjust the dc plan.
[2020-11-26] MEDS: Enoxaparin Sodium 40 MG/0.4 ML SYRINGE SUBCUT (13:22)
[2020-11-26 14:22] LABS: Glucose, Whole Blood 117 mg/dL (60-115)
--- NOTE | 2020-11-26 15:01 | HO.POSTANES ---
Post Anesthesia Evaluation Post Anesthesia Evaluation Vital Signs: Vital Signs Temp Pulse Resp BP Pulse Ox 11/26/20 11:17 101.2 F H 137 H 20 134/80 88 L 11/26/20 07:14 98.3 F 111 H 18 138/71 93 11/26/20 03:30 135 H 127/71 11/26/20 03:23 102.2 F H 135 H 22 H 127/71 95 Anesthesia: Monitored Mental Status: Awake Pain Control: Satisfactory Nausea/Vomiting: None Hydration: Adequate Anesthesia-Related Issues: No Anes. Related Issues
--- NOTE | 2020-11-26 15:58 | PM.EVENT ---
Event Note Date of Service: 11/26/20 Event Note: Addiction follow up: Patient c/o generalized malaise and back pain--but overall reports feeling better. He is happy about family friends that came to see him yesterday and coming to see him today again. Requesting methadone. Photo ID still the issue. EKG reviewed. QTc WNL. Plan: -methadone 10mg administered with good effect -additional 10mg to be administered this evening -plan to d/c oxycodone and titrate methadone as appropriate. -methadone 20mg QD order for AM -will continue to follow
--- NOTE | 2020-11-26 16:28 | PM.IDPN ---
Subjective Subjective Date of Service: 11/26/20 Critical Care Time (minutes): 15 Comment: he complains of lower back pain this morning he has low side Vancomycin levels (11) He has no other complaints Objective Data Labs CBC & Chem 7: 11/26/20 07:55 11/26/20 07:55 Labs: Laboratory Results - last 24 hr 11/26/20 11/26/20 11/26/20 07:55 07:55 07:55 WBC 42.1 H* RBC 2.95 L Hgb 8.7 L Hct 24.5 L MCV 83.1 MCH 29.5 MCHC 35.5 RDW 14.6 Plt Count 153 L MPV 10.1 Absolute Nucleated RBC 0.000 Nucleated RBC % (auto) 0.0 Sodium 134 L Potassium 3.4 Chloride 103 Carbon Dioxide 23 Anion Gap 11 L BUN 17 H Creatinine 0.64 TNP Estim Creat Clear Calc 125.1 TNP Estimated GFR > 60 TNP POC Glucose Random Glucose 106 Calcium 6.9 L 11/26/20 14:19 WBC RBC Hgb Hct MCV MCH MCHC RDW Plt Count MPV Absolute Nucleated RBC Nucleated RBC % (auto) Sodium Potassium Chloride Carbon Dioxide Anion Gap BUN Creatinine Estim Creat Clear Calc Estimated GFR POC Glucose 117 H Random Glucose Calcium Microbiology Microbiology Results: Microbiology 11/24/20 05:28 Blood - Venous Blood Culture - Final Methicillin Res Staph Aureus 11/24/20 05:18 Blood - Venous Blood Culture - Final Methicillin Res Staph Aureus 11/21/20 21:14 Blood - Venous Blood Culture - Final Methicillin Res Staph Aureus 11/21/20 21:14 Blood - Venous Blood Culture - Final Methicillin Res Staph Aureus 11/21/20 23:53 Urine clean catch - Clean Catch Midstream Urine Culture - Final No growth. Physical Exam Vital Signs: Vital Signs: Last Vital Signs Temp 101.3 F H 11/26/20 15:36 Pulse 130 H 11/26/20 15:36 Resp 15 11/26/20 15:36 BP 126/68 11/26/20 15:36 Pulse Ox 92 11/26/20 15:36 Body Mass Index 20.9 Const: General: cooperative Resp: Effort & Inspection: normal respiratory effort Cardio: Rate: regular rate Rhythm: regular rhythm GI: Palpation (GI): Soft to palpation and nontender Extrem: Other: pain lower back Assessment and Plan Assessment and plan (1) Sepsis: Problem details: He has had MRSA bacteremia He is awaiting clearance. Echo unremarkable Status: Acute Assessment and Plan: Check MRI LS spine check metastatic site since still bacteremic Change to Daptomycin 8 mg/kg Time Spent With Patient Time: Total time spent is greater than 50% in coordination of care (as documented) at patient's floor/unit and/or counseling patient: Time with patient: 15 - 24 minutes
[2020-11-27] VITALS (14 sets, daily range): BP systolic 98–146; BP diastolic 68–86; PULSE 111–138; RESP 17–20; TEMP 36.9–39.5; O2SAT 93–96
[2020-11-27] MEDS: Acetaminophen 325 MG TABLET 650 MG PO ×4 (03:27→22:40)
[2020-11-27] MEDS: 0.9 % Sodium Chloride Flush 3 ML SYRINGE IVFLUSH ×2 (03:28→09:22)
[2020-11-27 04:15] LABS: Basophils Absolute Auto 0.1 X10*3/uL (0.0-0.2); Basophils Percent Auto 0.2 % (0-2); Imm Gran Abs Auto 1.79 X10*3/uL (0.00-0.03); Imm Gran Pct Auto 4.3 % (0.0-0.4); Lymphocytes Percent Auto 9.4 % (20-40); MANUAL DIFF FLAG SCAN; Mean Corpuscular HGB Conc 34.8 g/dl (31.0-36.0); Mean Corpuscular Hemoglobin 29.4 pg (27.0-33.0); Mean Corpuscular Volume 84.5 fL (80-98); Mean Platelet Volume 10.4 fL (9.4-12.4); Monocytes Absolute Auto 1.9 X10*3/uL (0.1-1.2); Monocytes Percent Auto 4.5 % (2-11); Neutrophils Absolute Auto 34.2 X10*3/uL (2.0-8.3); Neutrophils Percent Auto 81.6 % (45-73); Platelet Count 177 X10*3/uL (160-400); Red Blood Count 2.38 X10*6/uL (4.60-5.80); Red Cell Distribution Width 15.2 % (11.0-16.0); SCAN SMEAR FLAG 1
[2020-11-27 04:32] LABS: Anion Gap 11 (12-20); Blood Urea Nitrogen 15 mg/dL (9-16); Carbon Dioxide 24 mmol/L (22-29); Chloride 102 mmol/L (96-108); Creatinine Clr Calc Pharmacy 123.2; Estimated Glomerular Filt Rate > 60; Glucose Random 105 mg/dL (60-115); Potassium 3.9 mmol/L (3.3-5.1); Sodium 133 mmol/L (135-145)
[2020-11-27 04:42] LABS: Hematocrit 20.1 % (42-52)
[2020-11-27 04:43] LABS: SLIDE REVIEW VERIFIED
[2020-11-27 04:44] LABS: Alanine Aminotransferase 14 U/L (0-40); Albumin Level 1.7 g/dL (3.5-5.0); Alkaline Phosphatase 164 U/L (39-117); Aspartate Amino Transferase 27 U/L (5-37); Bilirubin Direct 0.7 mg/dL (0.0-0.5); Total Protein 5.1 g/dL (6.5-8.0)
--- NOTE | 2020-11-27 05:21 | PM.EVENT ---
Event Note Date of Service: 11/27/20 Event Note: pt H&H shows hgb of 7 no acute bleed, pt denies melena, but reports small amounts of hemoptysis yesterday. Will send fecal occult blood sample. will tranfsue 1 unit of prbc
--- NOTE | 2020-11-27 07:46 | PC.NURSE ---
0300: Rectal temp of 103.1, this RN gave PRN Tylenol and applied ice packs to patient. Patient felt hot to touch, was A+O, and states he just feels tired . This RN notified Dr Levin. Labs were ordered, critical results came back: Blood Cult positive for gram positive cocci in cluster, WBC 42.0, Hgb/Hct 7.0/20.1. This RN notified Dr Levin of the critical results. Patient denies any acute bleeding. Reports small amounts of bloody sputum. Ollie ordered Type and Screen, and 1 unit of RBCs. This RN collected a blood transfusion consent.
[2020-11-27 08:45] LABS: Basophils Absolute Auto 0.1 X10*3/uL (0.0-0.2); Basophils Percent Auto 0.3 % (0-2); Eosinophils Percent Auto 0.1 % (0-4); Hematocrit 21.7 % (42-52); Hemoglobin 7.6 g/dl (14.0-18.0); Imm Gran Abs Auto 2.17 X10*3/uL (0.00-0.03); Imm Gran Pct Auto 4.6 % (0.0-0.4); Lymphocytes Absolute Auto 4.1 X10*3/uL (1.2-4.9); Lymphocytes Percent Auto 8.8 % (20-40); MANUAL DIFF FLAG SCAN; Mean Corpuscular Hemoglobin 29.3 pg (27.0-33.0); Mean Corpuscular Volume 83.8 fL (80-98); Mean Platelet Volume 10.1 fL (9.4-12.4); Monocytes Percent Auto 4.3 % (2-11); Neutrophils Absolute Auto 38.2 X10*3/uL (2.0-8.3); Neutrophils Percent Auto 81.9 % (45-73); Platelet Count 192 X10*3/uL (160-400); Red Blood Count 2.59 X10*6/uL (4.60-5.80); Red Cell Distribution Width 15.4 % (11.0-16.0); SCAN SMEAR FLAG 1
[2020-11-27 09:06] LABS: White Blood Count 46.7 X10*3/uL (4.8-10.8)
[2020-11-27] MEDS: Lidocaine 4 % Patch ADH..PATCH 2 PATCH TRANSDERMA (09:21)
[2020-11-27] MEDS: Nicotine 21 MG PATCH.TD24 TRANSDERMA (09:21)
--- NOTE | 2020-11-27 11:31 | P.PNIM_ITS ---
Subjective Subjective Date of Service: 11/27/20 Interval History: Seen and examined this morning, follow-up for MRSA bacteremia, septic pulmonary emboli, tricuspid endocarditis Persistently positive blood cultures, persistently febrile Reports feeling ?great? this morning. Denies any back pain at this time Review of Systems Review of Systems: Yes all other systems are reviewed and are negative Cardiovascular Cardiovascular: Denies chest pain Respiratory Respiratory: Denies cough Gastrointestinal Gastrointestinal: Denies abdominal pain Physical Exam Vital Signs: Vital Signs: Last Vital Signs Temp 102.4 F H 11/27/20 11:24 Pulse 135 H 11/27/20 11:24 Resp 18 11/27/20 11:24 BP 146/81 H 11/27/20 11:24 Pulse Ox 96 11/27/20 11:24 Body Mass Index 20.9 Const: General: comfortable, no acute distress, alert and awake Nutritional Appearance: thin HENMT: Head: Yes normocephalic and Yes atraumatic Eyes: Sclerae: sclerae normal Chest: Chest palpation & inspection: normal inspection of the chest Resp: Effort & Inspection: normal respiratory effort and no respiratory distress Cardio: Rate: regular rate Rhythm: regular rhythm GI: Palpation (GI): Soft to palpation and nontender Neuro: Cranial nerves: Yes CN's II-XII intact bilaterally and Yes Bilaterally intact EOM present Objective Data Current Medications Generic Name Dose Route Start Last Admin Trade Name Cyndee PRN Reason Stop Dose Admin Acetaminophen 650 mg 11/22/20 00:08 11/27/20 11:18 Acetaminophen 325 Mg Tablet PO 650 mg Q6H PRN Administration Pain, Mild (Pain Scale 1-3) Clonidine HCl 0.1 mg 11/22/20 00:10 11/26/20 03:30 Clonidine Hcl 0.1 Mg Tablet PO 0.1 mg BID PRN Administration anxiety/restlessness Protocol Enoxaparin Sodium 40 mg 11/26/20 14:00 11/26/20 13:22 Enoxaparin Sodium 40 Mg/0.4 Ml Syringe SUBCUT 40 mg Q24H SOHEILA Administration Furosemide 20 mg 11/25/20 09:00 11/26/20 20:59 Furosemide 20 Mg/2 Ml Vial IVPUSH 20 mg BID@0900,1800 SOHEILA Administration Protocol Daptomycin 485 mg/ Sodium 59.7 mls @ 100.009 mls/hr 11/26/20 14:00 11/26/20 21:07 Chloride IV Infused Q24H SOHEILA Infusion Lidocaine 2 patch 11/24/20 10:00 11/27/20 09:21 Lidocaine 4 % Patch Adh..Patch TRANSDERMA 2 patch DAILY SOHEILA Administration Protocol Lorazepam 0.5 mg 11/23/20 08:10 11/24/20 13:17 Lorazepam 0.5 Mg Tablet PO 0.5 mg Q6H PRN Administration Anxiety Magnesium Hydroxide 30 ml 11/22/20 00:08 Milk Of Magnesia 30 Ml Oral.Susp PO DAILY PRN Constipation Melatonin 6 mg 11/22/20 00:08 11/23/20 21:10 Melatonin 3 Mg Tablet PO 6 mg BEDTIME PRN Administration Insomnia Methadone HCl 20 mg 11/27/20 09:00 11/27/20 09:21 Methadone Hcl 1 Mg/0.1 Ml Oral.Conc PO 20 mg DAILY SOHEILA Administration Nicotine 21 mg 11/22/20 01:45 11/27/20 09:21 Nicotine 21 Mg Patch.Td24 TRANSDERMA 21 mg DAILY SOHEILA Administration Pharmacy Consult 1 each 11/21/20 20:51 Consult Rx Vancomycin Dosing MISCELLANE DAILY PRN Consult order Sodium Chloride 3 ml 11/22/20 08:00 11/27/20 09:22 0.9 % Sodium Chloride Flush 3 Ml Syringe IVFLUSH 3 ml QSHIFT SOHEILA Administration Labs CBC & Chem 7: 11/27/20 08:18 11/27/20 03:59 Labs: Laboratory Results - last 24 hr 11/26/20 11/27/20 11/27/20 14:19 03:59 03:59 WBC 42.0 H* RBC 2.38 L Hgb 7.0 L* Hct 20.1 L* MCV 84.5 MCH 29.4 MCHC 34.8 RDW 15.2 Plt Count 177 MPV 10.4 Immature Gran % (Auto) 4.3 H Neut % (Auto) 81.6 H Lymph % (Auto) 9.4 L [place] % (Auto) 4.5 Eos % (Auto) 0.0 Baso % (Auto) 0.2 Lymph # (Auto) 4.0 [place] # (Auto) 1.9 H Eos # (Auto) 0.0 Baso # (Auto) 0.1 Abs Immat Gran (auto) 1.79 H Absolute Neuts (auto) 34.2 H Absolute Nucleated RBC 0.000 Nucleated RBC % (auto) 0.0 Smear Tech's Comments VERIFIED Sodium 133 L Potassium 3.9 Chloride 102 Carbon Dioxide 24 Anion Gap 11 L BUN 15 Creatinine 0.65 Estim Creat Clear Calc 123.2 Estimated GFR > 60 POC Glucose 117 H Random Glucose 105 Calcium 7.0 L Total Bilirubin Direct Bilirubin AST ALT Alkaline Phosphatase Total Creatine Kinase Total Protein Albumin Blood Type Antibody Screen Crossmatch 11/27/20 11/27/20 11/27/20 03:59 08:18 08:18 WBC 46.7 H* RBC 2.59 L Hgb 7.6 L Hct 21.7 L MCV 83.8 MCH 29.3 MCHC 35.0 RDW 15.4 Plt Count 192 MPV 10.1 Immature Gran % (Auto) 4.6 H Neut % (Auto) 81.9 H Lymph % (Auto) 8.8 L [place] % (Auto) 4.3 Eos % (Auto) 0.1 Baso % (Auto) 0.3 Lymph # (Auto) 4.1 [place] # (Auto) 2.0 H Eos # (Auto) 0.0 Baso # (Auto) 0.1 Abs Immat Gran (auto) 2.17 H Absolute Neuts (auto) 38.2 H Absolute Nucleated RBC 0.000 Nucleated RBC % (auto) 0.0 Smear Tech's Comments Sodium Potassium Chloride Carbon Dioxide Anion Gap BUN Creatinine Estim Creat Clear Calc Estimated GFR POC Glucose Random Glucose Calcium Total Bilirubin 1.0 Direct Bilirubin 0.7 H AST 27 D ALT 14 Alkaline Phosphatase 164 H D Total Creatine Kinase 8 L Total Protein 5.1 L Albumin 1.7 L Blood Type O Positive Antibody Screen NEGATIVE Crossmatch See Detail Microbiology Microbiology Results: Microbiology 11/26/20 09:04 Blood Culture - Preliminary Blood - Venous Prelim: GPC Gram Stain only 11/24/20 05:28 Blood Culture - Final Blood - Venous Methicillin Res Staph Aureus 11/26/20 09:06 Blood Culture - Preliminary Blood - Venous Prelim: GPC Gram Stain only 11/24/20 05:18 Blood Culture - Final Blood - Venous Methicillin Res Staph Aureus Quality Stroke Does the patient have a stroke diagnosis?: No VTE Prior VTE?: No VTE Risk Level:: Medical - moderate - high VTE Device Contraindication: N/A - Device Ordered VTE Drug Contraindication: Treatment Not Indicated Assessment and Plan (1) Infective endocarditis: Status: Acute (2) Acute septic pulmonary embolus: Status: Acute Assessment and Plan: 45-year-old male with a past medical history of IV drug abuse/IV heroin use presented to the hospital with chief complaint of generalized body aches/dry cough. Noted to have significantly elevated white count with bandemia and low- grade temperatures; admitted for further management found to have MRSA bacteremia, endocarditis and septic emboli. MRSA Bacteremia / Septic Pulm Emboli / Endocarditis (tricuspid) Persistently febrile Sepsis - present on admission cultures persistently positive -vancomcyin changed to daptomycin 11/26 -ID following -Cardiology on board as well -- s/p RAYSA with left side valves appearing clean Acute respiratory failure with hypoxia o2 sat 88% on 11/26, currently on 3L NC r/t underlying septic emboli. possible component of fluid overload -continue supplemental o2 prn Fluid overload +6L balance since admission, likely from IVF for sepsis empiric iv lasix (-500 so far last 24 hours) Opiate abuse / dependence addiction medicine on board -continue methadone Normocytic anemia. No signs of bleeding. H/H dropped further -will transfuse 2u rbc -follow CBC Mild Hypona initially felt to be hypovoluemic, now ? SIADH stable at 133 this am -follow BMP Tobacco dependence -continue NRT Abdominal US, Full Code DVT pptx, Lovenox Attending: Dr. Coronado
[2020-11-27] MEDS: Furosemide 20 MG/2 ML VIAL IVPUSH ×2 (11:41→17:34)
[2020-11-27] MEDS: oxyCODONE HCl Immed Release 5 MG TABLET 20 MG PO (14:58)
[2020-11-27] MEDS: Enoxaparin Sodium 40 MG/0.4 ML SYRINGE SUBCUT (14:58)
[2020-11-27] MEDS: Ibuprofen 400 MG TABLET PO (18:13)
[2020-11-28] VITALS (10 sets, daily range): BP systolic 103–129; BP diastolic 61–77; PULSE 114–150; RESP 20–24; TEMP 37.2–40.1; O2SAT 92–100
[2020-11-28] MEDS: oxyCODONE HCl Immed Release 5 MG TABLET 20 MG PO ×2 (02:44→13:05)
[2020-11-28] MEDS: Acetaminophen 325 MG TABLET 650 MG PO ×2 (05:49→13:05)
[2020-11-28 06:42] LABS: Hemoglobin 7.1 g/dl (14.0-18.0); Mean Corpuscular HGB Conc 35.3 g/dl (31.0-36.0); Mean Corpuscular Hemoglobin 29.2 pg (27.0-33.0); Mean Corpuscular Volume 82.7 fL (80-98); Mean Platelet Volume 10.9 fL (9.4-12.4); Platelet Count 250 X10*3/uL (160-400); Red Blood Count 2.43 X10*6/uL (4.60-5.80); Red Cell Distribution Width 15.6 % (11.0-16.0)
[2020-11-28 07:21] LABS: Anion Gap 11 (12-20); Blood Urea Nitrogen 16 mg/dL (9-16); Calcium 7.2 mg/dL (8.4-10.2); Carbon Dioxide 26 mmol/L (22-29); Chloride 100 mmol/L (96-108); Creatinine Clr Calc Pharmacy 148.3; Estimated Glomerular Filt Rate > 60; Glucose Random 67 mg/dL (60-115); Sodium 133 mmol/L (135-145)
[2020-11-28 07:35] LABS: Hematocrit 20.1 % (42-52)
--- NOTE | 2020-11-28 07:42 | PC.NURSE ---
0240: Patient is restless, reporting generalized body aches, stomach cramps and slight tremors. HR 140s. This RN gave patient PRN Oxycodone at 0244 for body aches and withdrawal symptoms. Patient was able to fall asleep for a short period of time. 0440: Patients HR now 150s, with worsening withdrawal symptoms. Patient states, im not getting enough Methadone . Patient is scoring a 14 on the COWS scale. This RN contacted Dr Levin. A one time order was placed for 10mg of Methadone, which was given at 0545. Patient states he is starting to feel better at this time. HR now 130s. Patient is on [employer] tele monitor.
[2020-11-28] MEDS: 0.9 % Sodium Chloride Flush 3 ML SYRINGE IVFLUSH ×2 (09:05)
[2020-11-28] MEDS: cloNIDine HCL 0.1 MG TABLET PO (09:05)
[2020-11-28] MEDS: Nicotine 21 MG PATCH.TD24 TRANSDERMA (09:05)
[2020-11-28] MEDS: Lidocaine 4 % Patch ADH..PATCH 2 PATCH TRANSDERMA (09:06)
--- NOTE | 2020-11-28 11:17 | MHC.RECOVRN ---
T/w met with pt, along with Joya Guzman NP to follow up regarding methadone effectiveness. Pt dressed, sitting in bed. Pt reports feeling good overall and grateful for another chance at life. Pt received 20 mg yesterday and began experiencing withdrawal symptoms overnight. Pt received additional 10 mg at 0555 this morning. Pt reports 20 mg is too low and doesn't last. Pt reiterates that he was using 15-20 bundles heroin daily. Discussed with Joya Guzman NP. Pt open to a split dose while inpatient.
--- NOTE | 2020-11-28 11:44 | PM.EVENT ---
Event Note Date of Service: 11/28/20 Event Note: Met with patient this morning along with [facility] operations staff officer. Recent EKG reviewed. Patient currently receiving 20 mg methadone daily. Patient did require 10 mg p.r.n. dose within past 24 hours. Patient reached poor eating feeling ongoing opioid withdrawals and cravings at this time. Objective symptoms include restless legs, diaphoresis, pyloric mullen. Patient also appeared tearful and anxious. PLAN: Increase methadone dosing to 20 mg b.i.d.. Order sent to pharmacy. Recommend continuing p.r.n. oxycodone as is for now. This has been shared with Dr. Jacques Coronado. Thank you.
--- NOTE | 2020-11-28 14:57 | P.DS_ITS ---
DS: Providers Provider Date of Service: 11/28/20 Date of admission: 11/22/20 00:08 Primary care physician: Unknown Physician Consults: 11/22/20 00:10 Addiction Medicine Routine Consulting Provider: Diann Sosa Reason for consultation: opiate abuse 11/22/20 00:26 Consult to Infectious Diseases Routine Consulting Provider: Vianey Delgadillo Reason for consultation: IVDA; body aches; ?endocarditis/septic emboli; no clear source. 11/24/20 14:18 Consult to Cardiology Routine Consulting Provider: Bob Conway Reason for consultation: septic emboli, bacteremia, IVDA Has provider been notified: No DS: Diagnosis Discharge Diagnosis (1) Infective endocarditis: Status: Acute (2) Acute septic pulmonary embolus: Status: Acute (3) MRSA bacteremia: Status: Acute (4) IVDU (intravenous drug user): Status: Acute (5) Tobacco dependence: Status: Acute DS: Medications Discharge Medications Home Medications: Previous Rx's Medication Instructions Recorded acetaminophen 650 mg PO Q6H PRN #1 tab 11/28/20 clonidine HCl 0.1 mg PO BID PRN #1 tab 11/28/20 daptomycin [Cubicin RF] 485 mg IV Q24H #1 ea 11/28/20 enoxaparin 40 mg SUBCUT Q24H #0.4 ml 11/28/20 lidocaine [Lidocaine Pain Relief] 2 patch TRANSDERMAL DAILY #10 ea 11/28/20 magnesium hydroxide [Milk of 30 ml PO DAILY PRN #3000 ml 11/28/20 Magnesia] melatonin 6 mg PO BEDTIME PRN #1 tab 11/28/20 methadone [Methadose] 20 mg PO BID #30 ml 11/28/20 nicotine 21 mg TRANSDERMAL DAILY #1 ea 11/28/20 oxycodone 20 mg PO TID PRN #1 tab 11/28/20 DS: Summary Hospital Course Hospital Course: From H&P on day of admission 11/22/20 45-year-old male with No past medical history except for IV drug abuse/heroin abuse; presented to the hospital with a chief complaint of generalized body aches for the past couple days. Reports dry cough. Denies any numbness tingling. Denies any urinary retention or stool incontinence. Denies any focal weakness. Reports he has generalized weakness/fatigue. Mentions that he uses IV heroin daily. Denies any alcohol use. Denies any urinary complaints. Denies any nausea vomiting diarrhea. Review of all other systems is negative except mentioned above ER course: Per ER team patient noted to have significantly elevated white count, no obvious source of infection; had low-grade temperatures; started on broad-spectrum antibiotics. Admitted for further management. Hospital Course by problem: MRSA Bacteremia / Septic Pulm Emboli / Endocarditis (tricuspid)/sepsis The patient was admitted for generalized body aches and dry cough. Initial xray in ED raised question of septic emboli. He had CTA which showed no evidence of PE but did show cavitating nodules seen throughout both lungs consistent with septic emboli. patient had significant leukocytosis of 30.5 which has trended up to 46.0. Initial blood cultures from 11/21 grew MRSA. ECHO from 11/24 showed 2.95 x 1.5cm vegitation attached to the tricuspid valve with mild to moderate valve regurgitation. s/p RAYSA on 11/25 with left side valves appearing clean. He was seen in consultation by ID as well as cardiology. He was initially treated with vancomycin. This was changed to daptomyin on 11/26. Brain MRI 11/24 showed no evidence of infarct, mass lesion, hemorrhage or hydrocephalus. MRI of lumbar spine was done due to episode of back pain on 11/27 and did not show evidence of abscess. He has remained febrile with cultures persistently positive. Most recent blood cultures from 11/27 remain positive despite change in antibiotics. WBC has also remained elevated since admission and patient has remained febrile. Due to persistent bacteremia ID recommended transfer [place] [facility] [place]. Acute respiratory failure with hypoxia. o2 sats initially in 80s, currently requiring 3L NC. r/t underlying septic emboli as well as component of fluid overload. Continue supplemental o2 prn. on 11/24 he was noted to be tachypnic and imaging showing worsening cavitary nodules and increasing left pleural effusion. He was started on gentle diuresis and spangler was inserted to follow Is&Os. BNP was 73. Opiate abuse/dependence. Patient was seen by addiction medicine. He decline suboxone and was therefore started on methadone as well as prn clonidine and oxycodone. Normocytic anemia. Patient had some intermittent hemoptysis no other signs of active bleeding. H/H dropped to 7.0/20.1 on 11/27 and 2 units of blood where ordered however due to persistent fever he has been unable to be transfused. Stool occult was ordered but is pending at the time of discharge. Stat h/h checked at request of receiving facility was 7.5/21.8. (Initial H/H was 10.4/28.7 on day of admission ) Siinus tachycardia. Persistent tachycardia r/t fever and anemia. EKG sinus tachy. patient asymptomatic. Tobacco dependence. Started on NRT Elevated LFTs. LFTs were somewhat elevated on admission T bili 2.2, direct bili 1.6, AST 46, ALT 17 which trended down by the following day. He had abdominal ultrasound and Incidental finding of 5mm hyperechoic lesion in dome of right lobe of liver which may represent hemangioma. Hepatitis C Ab reactive. hiv nonreactive. Time Spent with Patient Time attestation: Total time spent providing and/or coordinating discharge services: Discharge coordination time: Greater than 30 minutes Quality: Stroke Does the patient have a stroke diagnosis?: No Physical Exam Vital Signs: Vital Signs: Last Vital Signs Temp 104.2 F H 11/28/20 13:11 Pulse 129 H 11/28/20 09:05 Resp 24 H 11/28/20 08:00 BP 109/67 11/28/20 09:05 Pulse Ox 97 11/28/20 08:00 Body Mass Index 20.9 Const: General: comfortable, no acute distress, alert and awake Nutritional Appearance: thin HENMT: Head: Yes normocephalic and Yes atraumatic Eyes: Sclerae: sclerae normal Chest: Chest palpation & inspection: normal inspection of the chest Resp: Effort & Inspection: normal respiratory effort and no respiratory distress Cardio: Rate: regular rate Rhythm: regular rhythm GI: Palpation (GI): Soft to palpation and nontender Neuro: Cranial nerves: Yes CN's II-XII intact bilaterally and Yes Bilaterally intact EOM present DS: Data Data Completed and Pending Labs on day of discharge: Laboratory Results - last 24 hr 11/27/20 11/28/20 11/28/20 08:18 05:22 05:22 WBC 46.0 H* RBC 2.43 L Hgb 7.1 L Hct 20.1 L* MCV 82.7 MCH 29.2 MCHC 35.3 RDW 15.6 Plt Count 250 D MPV 10.9 Absolute Nucleated RBC 0.000 Nucleated RBC % (auto) 0.0 Sodium 133 L Potassium 4.0 Chloride 100 Carbon Dioxide 26 Anion Gap 11 L BUN 16 Creatinine 0.54 Estim Creat Clear Calc 148.3 Estimated GFR > 60 Random Glucose 67 D Calcium 7.2 L Blood Type O Positive Antibody Screen NEGATIVE Crossmatch See Detail Preliminary micro results at discharge 11/27/20 03:59 Blood Culture - Preliminary Blood - Venous Staphylococcus aureus 11/27/20 03:53 Blood Culture - Preliminary Blood - Venous Staphylococcus aureus 11/26/20 09:04 Blood Culture - Preliminary Blood - Venous Staphylococcus aureus 11/26/20 09:06 Blood Culture - Preliminary Blood - Venous Staphylococcus aureus Imaging CT scan - chest: Radiologist's impression: ITS Impressions Chest X-Ray 11/21/20 20:50 IMPRESSION: Interval increase in bilateral nodular opacities with small left pleural effusion. These findings are nonspecific, but given the short interval, septic emboli cannot be excluded. A CT scan of the chest should be considered. Chest CTA 11/22/20 00:19 IMPRESSION: 1. No pulmonary embolism. 2. Cavitating nodules are seen throughout both lungs, consistent with septic emboli. Small pleural effusions with bibasilar consolidation. VTE: negative Brain MRI 11/24/20 12:11 IMPRESSION: No acute infarct, mass lesion, intracranial hemorrhage, or evidence of hydrocephalus. Chest X-Ray 11/24/20 14:50 IMPRESSION: Increasing cavitary nodules and larger denser areas of airspace disease in the right lateral midlung and left lower lobe and increasing left pleural effusion compared to previous exams. Abdomen Ultrasound 11/26/20 09:39 IMPRESSION: 5 mm hyperechoic lesion high in the dome of the right lobe of the liver. This may represent a hemangioma. Small right pleural effusion. Small right renal cyst. Lumbar Spine MRI 11/27/20 13:19 IMPRESSION: Of note there is transitional spinal anatomy with partial lumbarization of the S1 vertebral segment and a single hypoplastic right-sided L1 rib. There is diffuse reduction of bone marrow signal intensity on T1 sequences. This nonspecific finding can be seen in setting of red marrow reconversion or anemia. Other infiltrative bone marrow processes including leukemia are not excluded. There are bulging discs at L4-L5 and L5-S1. No canal or neuroforaminal stenosis within the lumbar spine. Subarticular zone narrowing at this level causes abutment of the left traversing L5 nerve root and both traversing S1 nerve roots. No evidence of abscess. Discharge Plan Discharge Patient Disposition: [facility] Discharge Diagnosis: tricuspid endocarditis MRSA bacteremia septic pulmonary emboli Referrals: Physician,Unknown [Primary Care Provider] - 1 Week Discharge Medications: New daptomycin [Cubicin RF] 500 mg Recon Soln 485 mg IV Q24H Qty: 1 RF: 0 clonidine HCl 0.1 mg Tablet 0.1 mg PO BID PRN (Reason: Anxiety/Restlessness) Qty: 1 RF: 0 acetaminophen 325 mg Tablet 650 mg PO Q6H PRN (Reason: mild pain 1-3 or fever) Qty: 1 RF: 0 lidocaine [Lidocaine Pain Relief] 4 % Adhesive Patch,Medicated 2 patch transdermal DAILY Qty: 10 RF: 0 melatonin 3 mg Tablet 6 mg PO BEDTIME PRN (Reason: Insomnia) Qty: 1 RF: 0 magnesium hydroxide [Milk of Magnesia] 400 mg/5 mL Suspension 30 ml PO DAILY PRN (Reason: Constipation) Qty: 3000 RF: 0 nicotine 21 mg/24 hr Patch 24 Hour 21 mg transdermal DAILY Qty: 1 RF: 0 methadone [Methadose] 10 mg/mL Concentrate 20 mg PO BID Qty: 30 RF: 0 oxycodone 5 mg Tablet 20 mg PO TID PRN (Reason: Pain, Severe (Pain Scale 7-10)) Qty: 1 RF: 0 enoxaparin 40 mg/0.4 mL Syringe 40 mg subcut Q24H Qty: 0.4 RF: 0 Discharge Orders: Discharge Order (Routine); Ordered 11/28/20 Ordered By: Unique Lunsford Activity on Discharge: As tolerated Stand Alone Forms: Patient Portal Discharge page Care Plan Goals: See below Health Concerns: MRSA bacteremia Tricuspid endocarditis Septic Pulmonary Emboli Opiate Use disorder Tobacco Use disorder Plan of Treatment: Transfer to [facility] for further care Assessment: See discharge summary
[2020-11-28 15:24] LABS: Hematocrit 21.8 % (42-52); Hemoglobin 7.5 g/dl (14.0-18.0)
--- NOTE | 2020-11-28 16:25 | MHC.RECOVRN ---
Met with pt to provide copy of ID received from [facility]. Pt awaiting transfer to [facility]. Pt tearful, scared. T/w reasasured pt. Pt grateful for the care received at [facility]. Pt hopeful for the future and being stronger. T/w called [facility], friend and support of pt, with pt present to explain the transfer. Provided pt with t/w card if needed.
[2020-11-28] MEDS: Ibuprofen 400 MG TABLET PO (16:40)
== END 2020-11-28 19:57 | disposition short-term general hospital (02) | DRG 720 ==
LOC: HO.ED 20:39 → HO.IMC 11-22 00:17
PROVIDERS: Hospitalist; Internal Medicine; Internal Medicine Cardiovascular Disease; Nurse Practitioner Acute Care; Physician Assistant Medical; Admitting Provider Hospitalist; Emergency Provider Internal Medicine; Visit Provider Family Medicine
DX: A41.02 Sepsis due to Methicillin resistant Staphylococcus aureus (principal); I26.90 Septic pulmonary embolism without acute cor pulmonale; J96.01 Acute respiratory failure with hypoxia; I33.0 Acute and subacute infective endocarditis; E87.1 Hypo-osmolality and hyponatremia; R04.2 Hemoptysis; E87.70 Fluid overload, unspecified; F11.23 Opioid dependence with withdrawal; R00.0 Tachycardia, unspecified; D64.9 Anemia, unspecified; Z20.822 Contact with and (suspected) exposure to COVID-19; Z87.891 Personal history of nicotine dependence; Z79.899 Other long term (current) drug therapy
CPT/HCPCS: 36415; 36600; 70551; 71045; 71275; 72158; 76705; 80048; 80076; 80202; 81001; 81003; 82550; 82565; 82803; 82947; 83605; 83880; 85007; 85014; 85018; 85025; 85027; 85610; 85730; 86140; 86803; 86850; 86900; 86901; 86923; 87040; 87077; 87086; 87147; 87186; 87205; 87389; 87635; 92960; 93005; 93306; 93312; 99285; A9585; C1758; J0878; J1650; J1940; J2543; J3370; Q9967